=== PATIENT | male | born 1985 | race Caucasian/White ===

== ENCOUNTER 2022-10-15 16:37 | Inpatient (IN) | payer MEDICAID, SELFPAY ==
[2022-10-15 16:38] VITALS: BP 160/77; BP 161/91; PULSE 115; PULSE 119; RESP 18; RESP 24; TEMP 38; O2SAT 96; O2SAT 97; BMI 60.0
[2022-10-15 17:15] LABS: Bedside Glucose 116 mg/dL (74-106)
--- NOTE | 2022-10-15 17:58 | EKG12_ITS ---
Test Reason : GENERAL Blood Pressure : / mmHG Vent. Rate : 113 BPM Atrial Rate : 113 BPM P-R Int : 148 ms QRS Dur : 090 ms QT Int : 294 ms P-R-T Axes : 020 052 036 degrees QTc Int : 403 ms Sinus tachycardia Nonspecific ST-Segment Abnormality Confirmed by ADIS NAM, COLE ([id number]), editorial project manager NEENA SANTACRUZ ([id number]) on 10/17/2022 9:49:09 AM Referred By: Confirmed By:COLE ARCEO MD
--- NOTE | 2022-10-15 18:00 | EDS_ITS ---
HPI History of Present Illness Chief Complaint: General Illness Detail of Chief Complaint: Chills and rigors Informant: patient Onset/Context/Timing Onset: Today Narrative Narrative: Patient presents from work where he had developed chills with rigors and nausea. He states he feels that his ears are ringing and he feels dizzy. He was seen recently by a new primary care physician and had a mild cough. COVID test at that time was negative. The symptoms have developed since that test was performed. PFSH PFSH Allergy/AdvReac Type Severity Reaction Status Date / Time No Known Allergies Allergy Verified 10/15/22 16:40 Social History Smoking Status: Light Smoker (<10/day) ROS ROS ED Constitutional Constitutional ED: Reports chills, fever(s) and subjective Eyes Eyes: Denies change in vision or discharge from eye(s) ENT ENT ED: Denies discharge from eye(s), rhinorrhea or sore throat Cardiovascular Cardiovascular: Denies chest pain or palpitations Respiratory/Chest Respiratory/Chest: Reports cough; Denies dyspnea Gastrointestinal Gastrointestinal: Reports nausea; Denies abdominal pain, diarrhea or vomiting Genitourinary Genitourinary ED: Denies dysuria Musculoskeletal Musculoskeletal: Reports myalgias; Denies back pain or extremity pain Integumentary Denies Abrasions or rash Neurologic Neurologic: Reports headache(s); Denies weakness Psychiatric Psychiatric: Denies anxiety or depression Allergic/Immunologic Allergic/Immunologic ED: Denies lip swelling or urticaria EXAM Physical Exam Const Vital Signs: 10/15/22 16:38 10/15/22 16:38 10/15/22 18:38 Temperature 100.4 F H Temperature Source Oral Pulse Rate 119 H 115 H Respiratory Rate 18 24 H Respiratory Effort Short of Breath Respiratory Pattern Tachypnea Blood Pressure 161/91 H 160/77 H Blood Pressure Mean 114 104 Pulse Ox 97 96 Oxygen Delivery Method Room Air Room Air 10/15/22 19:41 10/15/22 21:33 10/15/22 21:46 Temperature 101.0 F H 99.1 F Temperature Source Oral Oral Pulse Rate 108 H 105 H Respiratory Rate 16 16 Respiratory Effort Respiratory Pattern Blood Pressure 95/54 L 92/60 Blood Pressure Mean 67 70 Pulse Ox 100 96 Oxygen Delivery Method Room Air Room Air 10/15/22 22:06 Temperature Temperature Source Pulse Rate 108 H Respiratory Rate 18 Respiratory Effort Respiratory Pattern Blood Pressure 111/67 Blood Pressure Mean 81 Pulse Ox 98 Oxygen Delivery Method Room Air Positive well nourished and well developed General Appearance ED: well developed HEENT Reports normocephalic and head/scalp atraumatic Eyes PERRL and EOMs intact bilaterally Neck supple Chest Wall inspection of chest normal and palpation of chest normal Resp normal respiratory effort and clear to auscultation bilaterally Cardio regular rhythm Rate: tachycardic GI non-tender Palpation: soft Extremity normal to inspection Neuro oriented x3 and no sensory deficits noted Sensorium / Orientation: alert Motor Exam: strength 5/5 throughout Psych mental status grossly normal Skin no rashes or lesions noted MDM MDM MDM Narrative Medical decision making narrative: COVID and influenza swabs have been sent prior to my initial evaluation. At the time of my eval I added lab work to evaluate for leukocytosis, anemia, electrolyte derangement. Chest x-ray obtained to evaluate for infiltrate or acute pulmonary pathology. Lab Data Attestation: I reviewed the patient's lab results. Labs: Laboratory Results - last 24 hr 10/15/22 10/15/22 10/15/22 16:46 18:35 18:35 WBC 20.7 H RBC 5.07 Hgb 14.7 Hct 46.4 MCV 91.5 MCH 29.0 MCHC 31.7 L RDW Std Deviation 47.3 H RDW Coeff of David 14.3 Plt Count 240 MPV 10.5 Immature Gran % (Auto) 0.600 Neut % (Auto) 92.5 H Lymph % (Auto) 2.8 L [place] % (Auto) 4.0 Eos % (Auto) 0.0 Baso % (Auto) 0.1 Absolute Neuts (auto) 19.1 H Absolute Lymphs (auto) 0.57 L Nucleated RBC % 0 Differential Comment SCANNED Platelet Estimate ADEQUATE Sodium 139 Potassium 3.5 Chloride 104 Carbon Dioxide 27.0 Anion Gap 8 BUN 11 Creatinine 0.92 Estim Creat Clear Calc 118.32 Est GFR (MDRD) Af Amer 118 Est GFR (MDRD) Non-Af 97 BUN/Creatinine Ratio 12.0 Glucose 111 H Lactic Acid Calcium 9.0 Urine Color Urine Clarity Urine pH Ur Specific [place] Urine Protein Urine Glucose (UA) Urine Ketones Urine Occult Blood Urine Nitrite Urine Bilirubin Urine Urobilinogen Ur Leukocyte Esterase Urine RBC Urine WBC Ur Squamous Epith Cells Urine Bacteria Urine Mucus POC Glucose 116 H 10/15/22 10/15/22 21:19 21:56 WBC RBC Hgb Hct MCV MCH MCHC RDW Std Deviation RDW Coeff of David Plt Count MPV Immature Gran % (Auto) Neut % (Auto) Lymph % (Auto) [place] % (Auto) Eos % (Auto) Baso % (Auto) Absolute Neuts (auto) Absolute Lymphs (auto) Nucleated RBC % Differential Comment Platelet Estimate Sodium Potassium Chloride Carbon Dioxide Anion Gap BUN Creatinine Estim Creat Clear Calc Est GFR (MDRD) Af Amer Est GFR (MDRD) Non-Af BUN/Creatinine Ratio Glucose Lactic Acid 2.3 H* Calcium Urine Color Yellow Urine Clarity Clear Urine pH 5.0 Ur Specific [place] 1.020 Urine Protein 30 H Urine Glucose (UA) Normal Urine Ketones 5 H Urine Occult Blood Negative Urine Nitrite Negative Urine Bilirubin Negative Urine Urobilinogen Normal Ur Leukocyte Esterase 25 H Urine RBC 0 SEEN Urine WBC 0-5 SEEN Ur Squamous Epith Cells 5-10 SEEN Urine Bacteria 0 SEEN Urine Mucus 3+ POC Glucose Radiography Chest X-Ray - ED: 1 View, Read by ED Physician and No Infiltrates Diagnostic Testing: Clinical Impression(s) from Imaging Studies Chest X-Ray 10/15/22 18:30 IMPRESSION: No acute cardiopulmonary disease. Electronically Signed: Castro Francis MD at 19:17 EDT , EKG Initial EKG: Attestation: I personally reviewed and interpreted this EKG as follows: Interpretation: Sinus Tachycardia (Sinus tach at 113. No acute ischemia.) Treatment and Re-Evaluation :: COVID and influenza swabs returned negative. I did advise the patient that since his symptoms really started today if he still has symptoms in 2 days he should be retested. CBC returns with a white count of 20.7 with 92% neutrophils. Chemistry studies are largely unremarkable. On repeat evaluation patient complains of ringing in his ears. Both ears are checked and TMs are clear bilaterally. There is minimal erythema in the canals but no evidence of otitis externa. Given his significantly elevated white count blood and urine cultures were obtained along with a urinalysis. While we are awaiting urinalysis I was notified by nursing staff that the patient's blood pressure had dropped into the 80s systolic. He remains slightly tachycardic. IV fluid boluses given. Lactic acid is obtained and is slightly elevated at 2.3. Patient denies having any rash or skin lesions. I do not have a definitive source of his fever or leukocytosis. He will be given Zosyn for broad-spectrum coverage. Given he still has dizziness with slightly improved blood pressure I will speak with the hospitalist for observation overnight. Blood pressure at this time is 112/66. Discharge Plan Triage Chief Complaint: General Illness ED Provider: Shania Live Dx/Rx/DC Orders Clinical Impression: SIRS (systemic inflammatory response syndrome) Primary Care Provider: Care Physician,No Primary Referrals: Care Physician,No Primary [Primary Care Provider] - Disposition Disposition: Acute Care [facility]
[2022-10-15] MEDS: Acetaminophen 500 MG Tablet 1000 MG PO (18:18)
[2022-10-15] MEDS: Ketorolac 30 MG/ML Syringe IV (18:27)
--- NOTE | 2022-10-15 18:30 | RAD_ITS ---
INDICATION: Cough EXAMINATION/TECHNIQUE: X-RAY - XR Chest 1 View COMPARISON: None. FINDINGS: LINES/DEVICES: None. LUNGS: No consolidation, edema or effusion. No pneumothorax. MEDIASTINUM AND CARDIOVASCULAR STRUCTURES: Cardiac silhouette not enlarged. Central airways and mediastinal contour are unremarkable. BONES AND SOFT TISSUES: Unremarkable for age. RAD/Chest 1 View (Portable) IMPRESSION: No acute cardiopulmonary disease. Electronically Signed: Castro Francis MD at 19:17 EDT ,
[2022-10-15 18:44] LABS: Absolute Lymphocyte Count 0.57 X10^3/uL (0.83-4.51); Absolute Neutrophil Count 19.1 X10^3/uL (2.0-7.7); Basophil# 0.03 X10^3/uL; Basophil% 0.1 % (0-1); Hematocrit 46.4 % (40-54); Hemoglobin 14.7 g/dL (13.0-16.5); Lymphocyte # 0.57 X10^3/ul (0.83-4.51); Lymphocyte % 2.8 % (19-41); Mean Corp Hgb Conc 31.7 g/dL (32-36); Mean Corpuscular Volume 91.5 fL (80-94); Mean Platelet Vol. 10.5 fl (6.2-12.0); Monocyte# 0.83 X10^3/uL; NRBC Flagged by Analyzer 0 % (0-5); Neutrophil % 92.5 % (47-70); POSITIVE DIFFERENTIAL YES; Platelet Count 240 K/mm3 (150-450); RBC Distribution Width CV 14.3 % (11.6-14.6); RBC Distribution Width SD 47.3 fl (35.1-43.9); Red Blood Count 5.07 M/mm3 (4.6-6.2); White Blood Count 20.7 K/mm3 (4.4-11.0)
[2022-10-15 18:48] LABS: Differential Indicated SCAN CRITERIA MET
[2022-10-15 18:55] LABS: Anion Gap 8 (5-15); BUN 11 mg/dL (7-18); Chloride 104 mmol/L (98-107); Creatinine, Serum 0.92 mg/dL (0.70-1.30); EST Glomerular Filtration Rate 97 mL/min (>60); Est Glom Filt Rate - Afr Amer 118 mL/min (>60); Estimated Creatinine Clearance 118.32 ml/min; Glucose 111 mg/dL (74-106); Potassium 3.5 mmol/L (3.5-5.1); Sodium Level 139 mmol/L (136-145)
[2022-10-15 19:14] LABS: Differential Comment SCANNED
[2022-10-15 19:15] LABS: Platelet Estimate ADEQUATE (ADEQ)
[2022-10-15 19:41] VITALS: TEMP 38.3
[2022-10-15 21:26] LABS: Bacteria 0 SEEN /hpf (None Seen); Red Blood Cells-Urine 0 SEEN /hpf (0-5)
[2022-10-15] MEDS: 0.9% Normal Saline 1,000 ML 150 ML IV (21:26)
[2022-10-15 21:33] VITALS: BP 95/54; PULSE 108; RESP 16; TEMP 37.3; O2SAT 100
[2022-10-15 21:46] VITALS: BP 92/60; PULSE 105; RESP 16; O2SAT 96
[2022-10-15 21:46] LABS: Color, Urine Yellow (Yellow); Glucose, Dipstick Normal (Normal); Ketone-Dipstick 5 mg/dl (Negative); Leukocyte Esterase-Dipstick 25 /ul (Negative); Nitrite-Dipstick Negative (Negative); Occult Blood-Urine Negative /ul (Negative); Protein-Dipstick 30 mg/dl (Negative); Urine Bilirubin Dipstick Negative (Negative); Urine Clarity Clear (Clear); Urine Urobilinogen Normal (Normal)
[2022-10-15] MEDS: 0.9% Normal Saline 1,000 ML 999 ML IV (22:05)
[2022-10-15 22:06] VITALS: BP 111/67; PULSE 108; RESP 18; O2SAT 98
[2022-10-15 22:07] LABS: Mucous, Urine 3+ /hpf (<or=2+); Squamous Epithelial Cells - UA 5-10 SEEN /hpf (0-5); White Blood Cells 0-5 SEEN /hpf (0-5)
[2022-10-15 22:43] LABS: Lactic Acid 2.3 mmol/L (0.4-1.9)
[2022-10-15 22:56] VITALS: BP 112/66; PULSE 109; RESP 20; TEMP 37.2; O2SAT 97
--- NOTE | 2022-10-15 23:02 | HP.PCM.HOS_ITS ---
HPI - General General Date of Admission: 10/15/22 Date of Service: 10/15/22 Chief Complaint: Fever, high-grade with chills, generalized illness with achiness HPI Narrative AMIRA CAREY, is a 37 M with history of obstructive sleep apnea on BiPAP was brought to ED for fever, chills rigors and generalized illness and weakness. Patient is accompanied with his . He went to work but he felt fever with chills and then came home. As per she took temperature and was 108 Fahrenheit, suspecting might not be that high but patient was febrile in ED, T101, 100.4 Fahrenheit with tachycardia and tachypnea. Patient has mild productive cough for last 2 weeks and he went to see newly established PCP and was COVID test was negative. He denies sore throat postnasal drip, alteration of taste and smell, sinus congestion. He has nausea and developed a headache today. Generalized muscle pain and aches. No hypoxia. In ED, chest x-ray was done, individually reviewed and looks under ventilated, crowded bronchovascular marking. Reported as no acute cardiopulmonary disease. In ED, rapid COVID and flu antigens are negative. Patient has leukocytosis with neutrophil 92%, lymphocyte 2.8, ALC 0.57 and an elevated ANC. Lactic acid 2.3. Patient on IV fluid normal saline bolus, blood cultures x2 and urine culture and 1 dose of IV Zosyn given further admitted Past medical history: Morbid obesity, obstructive sleep apnea but possible obesity hypoventilation syndrome on BiPAP, and diabetes mellitus type 2. Denies chronic cardiac disease, COPD/emphysema, stroke. Social history: He smokes less than a pack per day. Patient had taken 1 dose of COVID-vaccine, J&J. Denies heavy/chronic drinking alcohol or substance use. Family history: Noncontributory to the present illness. [facility] Allergy/AdvReac Type Severity Reaction Status Date / Time No Known Allergies Allergy Verified 10/15/22 16:40 Social History Smoking Status: Light Smoker (<10/day) ROS ROS Narrative Constitutional: Reports fatigue and weakness. Fever, aches and pain. HEENT: Reports systems reviewed and no addt'l complaints, except as documented Respiratory/Chest: Cough for about 2 weeks as described in HPI. CVS: Denies coronary artery disease/anginal chest pain. Gastrointestinal: One-time nausea and vomiting. GI bleed or abdominal pain. Genitourinary: Denies burning urination or new urinary tract symptoms Musculoskeletal: Reports joint pain and limited range of motion. Chronic leg swelling. Neurologic: Denies seizure-like activity skin: No ulcer. No rash Endocrinology: DM type II, new diagnosis by PCP. Morbid obesity. Reports systems reviewed and no addt'l complaints, except as documented Hematologic/Lymphatic: Bilateral chronic lymphedema in legs. Reports systems reviewed and no addt'l complaints, except as documented Rest 14 ROS are negative except as mentioned in HPI Vital Signs Vital Signs Vital Signs: 10/15/22 16:38 10/15/22 16:38 10/15/22 18:38 Temperature 100.4 F H Temperature Source Oral Pulse Rate 119 H 115 H Respiratory Rate 18 24 H Respiratory Effort Short of Breath Respiratory Pattern Tachypnea Blood Pressure 161/91 H 160/77 H Blood Pressure Mean 114 104 Pulse Ox 97 96 Oxygen Delivery Method Room Air Room Air 10/15/22 19:41 10/15/22 21:33 10/15/22 21:46 Temperature 101.0 F H 99.1 F Temperature Source Oral Oral Pulse Rate 108 H 105 H Respiratory Rate 16 16 Respiratory Effort Respiratory Pattern Blood Pressure 95/54 L 92/60 Blood Pressure Mean 67 70 Pulse Ox 100 96 Oxygen Delivery Method Room Air Room Air 10/15/22 22:06 10/15/22 22:56 Temperature 99.0 F Temperature Source Oral Pulse Rate 108 H 109 H Respiratory Rate 18 20 H Respiratory Effort Respiratory Pattern Blood Pressure 111/67 112/66 Blood Pressure Mean 81 81 Pulse Ox 98 97 Oxygen Delivery Method Room Air Room Air Weight Weight: 443 lb Body Mass Index (BMI) 60.0 Physical Exam Narrative Physical exam General: Alert, Oriented x3, Cooperative, super morbid obesity; BMI 60.1 kg/m?. HEENT: Atraumatic, PERRLA, EOMI, Normocephalic Oral: Deep oropharyngeal structures not clearly visualized. No oral/mucosal ulcers Neck: Supple, No JVD, Negative Carotid Bruits Lungs: Air entry diminished in bilateral lung bases. No crepitation/rhonchi Cardiovascular: Sinus tachycardia, Normal S1, Normal S2, No murmurs Abdomen: Bowel Sounds Present, Soft, Non Tender, large fat abdomen. : No renal angle tenderness. No suprapubic tenderness. Extremities: Bilateral chronic lymphedema 2+. Pitting and nonpitting edema., Capillary Refill Less than 3 Seconds Skin: No rashes, No breakdown Musculoskeletal: No Tenderness to Palpation of Joints. ROM restricted. Gene ralized muscle tenderness. Neurological: Cranial nerves II-XII grossly intact, DTR 2+/4 and Symmetrical, Neuro grossly intact Psych/Mental Status: Flat affect. Results Lab / Micro Data Result Diagrams: 10/15/22 18:35 10/15/22 18:35 Labs: Laboratory Results - last 24 hr 10/15/22 16:46: POC Glucose 116 H 10/15/22 18:35: WBC 20.7 H, RBC 5.07, Hgb 14.7, Hct 46.4, MCV 91.5, MCH 29.0, MCHC 31.7 L, RDW Std Deviation 47.3 H, RDW Coeff of David 14.3, Plt Count 240, MPV 10.5, Immature Gran % (Auto) 0.600, Neut % (Auto) 92.5 H, Lymph % (Auto) 2.8 L, [place] % (Auto) 4.0, Eos % (Auto) 0.0, Baso % (Auto) 0.1, Absolute Neuts (auto) 19.1 H, Absolute Lymphs (auto) 0.57 L, Nucleated RBC % 0, Differential Comment SCANNED, Platelet Estimate ADEQUATE 10/15/22 18:35: Sodium 139, Potassium 3.5, Chloride 104, Carbon Dioxide 27.0, Anion Gap 8, BUN 11, Creatinine 0.92, Estim Creat Clear Calc 118.32, Est GFR (MDRD) Af Amer 118, Est GFR (MDRD) Non-Af 97, BUN/Creatinine Ratio 12.0, Glucose 111 H, Calcium 9.0 10/15/22 21:19: Urine Color Yellow, Urine Clarity Clear, Urine pH 5.0, Ur Specific [place] 1.020, Urine Protein 30 H, Urine Glucose (UA) Normal, Urine Ketones 5 H, Urine Occult Blood Negative, Urine Nitrite Negative, Urine Bilirubin Negative, Urine Urobilinogen Normal, Ur Leukocyte Esterase 25 H, Urine RBC 0 SEEN, Urine WBC 0-5 SEEN, Ur Squamous Epith Cells 5-10 SEEN, Urine Bacteria 0 SEEN, Urine Mucus 3+ 10/15/22 21:56: Lactic Acid 2.3 H* Micro: Microbiology 10/15/22 17:25 Nasal Secretion SARS-CoV-2 & FLU Antigen (Rapid) - Final Radiology Impression Chest X-Ray 10/15/22 18:30 IMPRESSION: No acute cardiopulmonary disease. Electronically Signed: Castro Francis MD at 19:17 EDT , Assessment & Plan Assessment/Plan (1) Viral syndrome: PLAN: Plan This is 37-year-old gentleman is being admitted for high-grade fever, symptom co mplex suggestive of acute viral syndrome 1. Probability of sepsis due to acute viral syndrome: Patient is being admitted in PCU. I have moderate suspicion of sepsis based on clinical indicators of fever, tachycardia, leukocytosis, neutrophilia and lactic acidosis. The patient presented with sepsis due to exact etiology unclear possible, acute bronchitis due to respiratory virus with acute sepsis-related organ dysfunction as evidenced by lactic acidosis, transient hypotension responsive to IV fluid normal saline bolus. Sepsis work-up with blood cultures x2, urine culture, respiratory panel, COVID-19 PCR ordered. Initial rapid COVID and flu antigens are negative. Patient is not candidate for sepsis protocol IV fluid bolus as he has bilateral leg edema, diminished air entry in both lungs and high risk for fluid overload/pulmonary edema. His ideal body weight is 78 kg. Patient had 1 L of normal saline bolus ordered in ED. 2 L more IV fluid boluses ordered. Broad-spectrum IV antibiotic Zosyn ordered. 2. Morbid obesity with obstructive sleep apnea/obesity hypoventilation syndrome on BiPAP: Patient on BiPAP setting of 16/10. BiPAP ordered. Weight loss counseling done. Follow-up with PCP. 3. Diabetes mellitus type 2: Patient stated he was diagnosed with PCP recently but had not received medications yet. 1800 ADA diet. Accu-Cheks and adjust cover with Humalog sliding scale. A1c tomorrow AM. VTE prophylaxis, high risk due to morbid obesity: Enoxaparin 40 mg subcu twice daily Living will/advanced directive/end of life care: Patient does not have living will or advanced directive. No designated power of contracts attorney for health after discussion of benefits/risks procedures involved with full code, DNR CC arrest and DNR CC, the patient opted for full code. Patient does want artificial life support including intubation, tube feed, ventilator and/chest compression, central venous catheter, vasopressor and DC shock if needed 10/15/22 16:46: POC Glucose 116 H 10/15/22 18:35: WBC 20.7 H, RBC 5.07, Hgb 14.7, Hct 46.4, MCV 91.5, MCH 29.0, MCHC 31.7 L, RDW Std Deviation 47.3 H, RDW Coeff of David 14.3, Plt Count 240, MPV 10.5, Immature Gran % (Auto) 0.600, Neut % (Auto) 92.5 H, Lymph % (Auto) 2.8 L, [place] % (Auto) 4.0, Eos % (Auto) 0.0, Baso % (Auto) 0.1, Absolute Neuts (auto) 19.1 H, Absolute Lymphs (auto) 0.57 L, Nucleated RBC % 0, Differential Comment SCANNED, Platelet Estimate ADEQUATE 10/15/22 18:35: Sodium 139, Potassium 3.5, Chloride 104, Carbon Dioxide 27.0, Anion Gap 8, BUN 11, Creatinine 0.92, Estim Creat Clear Calc 118.32, Est GFR (MDRD) Af Amer 118, Est GFR (MDRD) Non-Af 97, BUN/Creatinine Ratio 12.0, Glucose 111 H, Calcium 9.0 10/15/22 21:19: Urine Color Yellow, Urine Clarity Clear, Urine pH 5.0, Ur Specific [place] 1.020, Urine Protein 30 H, Urine Glucose (UA) Normal, Urine Ketones 5 H, Urine Occult Blood Negative, Urine Nitrite Negative, Urine Bilirubin Negative, Urine Urobilinogen Normal, Ur Leukocyte Esterase 25 H, Urine RBC 0 SEEN, Urine WBC 0-5 SEEN, Ur Squamous Epith Cells 5-10 SEEN, Urine Bacteria 0 SEEN, Urine Mucus 3+ 10/15/22 21:56: Lactic Acid 2.3 H* 10/15/22 23:16: COVID-19 (RICHELLE) Pending 10/15/22 16:46: POC Glucose 116 H 10/15/22 18:35: WBC 20.7 H, RBC 5.07, Hgb 14.7, Hct 46.4, MCV 91.5, MCH 29.0, MCHC 31.7 L, RDW Std Deviation 47.3 H, RDW Coeff of David 14.3, Plt Count 240, MPV 10.5, Immature Gran % (Auto) 0.600, Neut % (Auto) 92.5 H, Lymph % (Auto) 2.8 L, [place] % (Auto) 4.0, Eos % (Auto) 0.0, Baso % (Auto) 0.1, Absolute Neuts (auto) 19.1 H, Absolute Lymphs (auto) 0.57 L, Nucleated RBC % 0, Differential Comment SCANNED, Platelet Estimate ADEQUATE 10/15/22 18:35: Sodium 139, Potassium 3.5, Chloride 104, Carbon Dioxide 27.0, Anion Gap 8, BUN 11, Creatinine 0.92, Estim Creat Clear Calc 118.32, Est GFR (MDRD) Af Amer 118, Est GFR (MDRD) Non-Af 97, BUN/Creatinine Ratio 12.0, Glucose 111 H, Calcium 9.0 10/15/22 21:19: Urine Color Yellow, Urine Clarity Clear, Urine pH 5.0, Ur Specific [place] 1.020, Urine Protein 30 H, Urine Glucose (UA) Normal, Urine K etones 5 H, Urine Occult Blood Negative, Urine Nitrite Negative, Urine Bilirubin Negative, Urine Urobilinogen Normal, Ur Leukocyte Esterase 25 H, Urine RBC 0 SEEN, Urine WBC 0-5 SEEN, Ur Squamous Epith Cells 5-10 SEEN, Urine Bacteria 0 SEEN, Urine Mucus 3+ 10/15/22 21:56: Lactic Acid 2.3 H* 10/15/22 23:16: COVID-19 (RICHELLE) Pending Charges/Coding Visit Charges Inpatient E&M: 88846 Init Hosp L3
[2022-10-16] VITALS (9 sets, daily range): BP systolic 84–150; BP diastolic 49–91; PULSE 95–102; RESP 18–30; TEMP 37.2–38.2; O2SAT 95–98; BMI 54.1; BMI 54.6
[2022-10-16 00:03] LABS: International Normalized Ratio 1.1; Partial Thromboplast Time 26.5 Seconds (24.1-36.2); Prothrombin Time (Protime)PT. 14.3 SECONDS (11.7-14.9)
[2022-10-16 00:06] LABS: AST(SGOT) 16 U/L (15-37); Alanine Aminotransfer ALT/SGPT 29 U/L (16-61); Albumin, Serum 3.6 g/dL (3.2-5.0); Alkaline Phosphatase 80 U/L (45-117); Bilirubin, Direct 0.18 mg/dL (0.00-0.30); CPK Total, Creatine Kinase 85 U/L (39-308); Globulin 4.2 g/dL (2.2-4.2); Protein, Total 7.8 g/dL (6.4-8.2)
[2022-10-16] MEDS: 0.9% Normal Saline 1,000 ML 999 ML IV ×2 (01:30→02:32)
[2022-10-16 02:04] LABS: Reflex Lactate? Y
[2022-10-16] MEDS: Enoxaparin 40 MG/0.4 ML Syringe SC ×3 (03:41→21:48)
[2022-10-16 05:29] LABS: Absolute Lymphocyte Count 0.74 X10^3/uL (0.83-4.51); Absolute Neutrophil Count 24.1 X10^3/uL (2.0-7.7); Basophil# 0.06 X10^3/uL; Basophil% 0.2 % (0-1); Eosinophil# 0.05 X10^3/uL; Eosinophils% 0.2 % (0-5); Hematocrit 40.5 % (40-54); Hemoglobin 12.6 g/dL (13.0-16.5); Lymphocyte # 0.74 X10^3/ul (0.83-4.51); Lymphocyte % 2.9 % (19-41); Mean Corp Hgb Conc 31.1 g/dL (32-36); Mean Corpuscular Hgb 28.9 pg (27.0-32.0); Mean Corpuscular Volume 92.9 fL (80-94); Mean Platelet Vol. 10.5 fl (6.2-12.0); Monocyte# 0.75 X10^3/uL; Monocyte% 2.9 % (0-10); NRBC Flagged by Analyzer 0 % (0-5); Neutrophil # 24.08 X10^3/uL (2.7-7.7); POSITIVE DIFFERENTIAL YES; Platelet Count 227 K/mm3 (150-450); RBC Distribution Width CV 14.4 % (11.6-14.6); RBC Distribution Width SD 48.9 fl (35.1-43.9); Red Blood Count 4.36 M/mm3 (4.6-6.2); White Blood Count 25.9 K/mm3 (4.4-11.0)
[2022-10-16 05:45] LABS: Anion Gap 7 (5-15); BUN 17 mg/dL (7-18); BUN/Creat Ratio 12.4 RATIO (10-20); Chloride 105 mmol/L (98-107); Creatinine, Serum 1.37 mg/dL (0.70-1.30); EST Glomerular Filtration Rate 61 mL/min (>60); Est Glom Filt Rate - Afr Amer 74 mL/min (>60); Estimated Creatinine Clearance 93.59 ml/min; Glucose 146 mg/dL (74-106); Potassium 4.1 mmol/L (3.5-5.1); Sodium Level 134 mmol/L (136-145)
[2022-10-16 05:47] LABS: Differential Indicated SCAN CRITERIA MET; Magnesium 1.3 mg/dL (1.6-2.6)
[2022-10-16 05:48] LABS: Phosphorus 2.4 mg/dL (2.5-4.9)
[2022-10-16 05:59] LABS: Differential Comment SCANNED
[2022-10-16 08:30] LABS: Hemoglobin A1c 6.1 % (3.8-5.6)
--- NOTE | 2022-10-16 08:51 | PN.HOSP_ITS ---
Reason for Visit Reason for Visit: For/chills/generalized weakness/malaise Subjective Subjective Mr. Tom is a 37-year-old morbidly obese white male who presented to the emergency department on 10/15/2022 with fever, chills, generalized weakness and malaise that started yesterday. Per the history his took his temperature at home and it was 108 ?F. In the emergency department he was 101 Tmax and was found to be tachycardic and tachypneic. He evidently had a productive cough for about 2 weeks and establish with a new primary care physician and was COVID tested 2 weeks ago and found to be negative. On the day of presentation he developed some nausea and headache as well as generalized malaise and myalgias. On presentation he was found to have a marked leukocytosis with a white count of 20.7 and a left shift having a 92.5% neutrophilia. Coags were normal. Chemistry was unremarkable. Lactic acid was 2.3. CRP was 22.4. His urine was not consistent with acute infection. Rapid and COVID PCR were negative. Respiratory viral panel was negative. Strep pneumo and Legionella antigens are negative. Blood and urine cultures are pending. Given the concern for sepsis he was admitted to the ICU. He reports that he is feeling a little bit better today. Very nonspecific with his complaints today. Fever curve has improved. Tmax thus today is 100.8. Patient did state he was aware that he might have some insulin resistance. His mother was a type II diabetic he believes. Objective Data Objective Data Vital Signs: Vital Signs Temp Pulse Resp BP Pulse Ox O2 Del Method 99.8 F H 100 27 H 99/49 L 96 Room Air 10/16/22 07:59 10/16/22 07:59 10/16/22 07:59 10/16/22 07:59 10/16/22 07:59 10/16/22 07:59 Oxygen Delivery Method Room Air Weight: 218.7 kg Body Mass Index (BMI) 54.6 Intake & Output: Intake and Output for Last 24 Hours 10/14/22 10/15/22 10/16/22 23:59 23:59 23:59 Intake Total 500 / 500 4262.5 / 4262.5 Balance 500 / 500 4262.5 / 4262.5 Lab / Micro Data Result Diagrams: 10/16/22 05:10 10/16/22 05:10 Labs: Laboratory Results - last 24 hr 10/15/22 16:46: POC Glucose 116 H 10/15/22 18:35: WBC 20.7 H, RBC 5.07, Hgb 14.7, Hct 46.4, MCV 91.5, MCH 29.0, MCHC 31.7 L, RDW Std Deviation 47.3 H, RDW Coeff of David 14.3, Plt Count 240, MPV 10.5, Immature Gran % (Auto) 0.600, Neut % (Auto) 92.5 H, Lymph % (Auto) 2.8 L, [place] % (Auto) 4.0, Eos % (Auto) 0.0, Baso % (Auto) 0.1, Absolute Neuts (auto) 19.1 H, Absolute Lymphs (auto) 0.57 L, Nucleated RBC % 0, Differential Comment SCANNED, Platelet Estimate ADEQUATE 10/15/22 18:35: Sodium 139, Potassium 3.5, Chloride 104, Carbon Dioxide 27.0, Anion Gap 8, BUN 11, Creatinine 0.92, Estim Creat Clear Calc 118.32, Est GFR (MDRD) Af Amer 118, Est GFR (MDRD) Non-Af 97, BUN/Creatinine Ratio 12.0, Glucose 111 H, Calcium 9.0 10/15/22 18:35: Total Bilirubin 0.60, Direct Bilirubin 0.18, AST 16, ALT 29, Alkaline Phosphatase 80, Total Creatine Kinase 85, Total Protein 7.8, Albumin 3.6, Globulin 4.2 10/15/22 18:35: C-React Prot Ext Range 22.40 H 10/15/22 21:19: Urine Color Yellow, Urine Clarity Clear, Urine pH 5.0, Ur Specific [place] 1.020, Urine Protein 30 H, Urine Glucose (UA) Normal, Urine Ketones 5 H, Urine Occult Blood Negative, Urine Nitrite Negative, Urine Bilirubin Negative, Urine Urobilinogen Normal, Ur Leukocyte Esterase 25 H, Urine RBC 0 SEEN, Urine WBC 0-5 SEEN, Ur Squamous Epith Cells 5-10 SEEN, Urine Bacteria 0 SEEN, Urine Mucus 3+ 10/15/22 21:56: Lactic Acid 2.3 H* 10/15/22 22:30: PT 14.3, INR 1.1, APTT 26.5 10/15/22 23:16: COVID-19 (RICHELLE) Not Detected 10/16/22 05:10: Magnesium 1.3 L 10/16/22 05:10: Sodium 134 L, Potassium 4.1, Chloride 105, Carbon Dioxide 22.0, Anion Gap 7, BUN 17, Creatinine 1.37 H, Estim Creat Clear Calc 93.59, Est GFR (M DRD) Af Amer 74, Est GFR (MDRD) Non-Af 61, BUN/Creatinine Ratio 12.4, Glucose 146 H, Calcium 8.0 L 10/16/22 05:10: WBC 25.9 H, RBC 4.36 L, Hgb 12.6 L, Hct 40.5, MCV 92.9, MCH 28.9, MCHC 31.1 L, RDW Std Deviation 48.9 H, RDW Coeff of David 14.4, Plt Count 227, MPV 10.5, Immature Gran % (Auto) 0.800, Neut % (Auto) 93.0 H, Lymph % (Auto) 2.9 L, [place] % (Auto) 2.9, Eos % (Auto) 0.2, Baso % (Auto) 0.2, Absolute Neuts (auto) 24.1 H, Absolute Lymphs (auto) 0.74 L, Nucleated RBC % 0, Differential Comment SCANNED 10/16/22 05:10: Phosphorus 2.4 L 10/16/22 05:10: Hemoglobin A1c 6.1 H 10/16/22 05:10: Lactic Acid 2.0 Micro: Microbiology 10/15/22 23:16 Mucosa - Nose Respiratory Panel (PCR) - Final 10/15/22 21:19 Urine, Random Streptococcus pneumoniae Antigen (M - Final 10/15/22 21:19 Urine, Clean Catch Legionella Antigen - Final 10/15/22 17:25 Nasal Secretion SARS-CoV-2 & FLU Antigen (Rapid) - Final Radiography Diagnostic Testing: Radiology Impression Chest X-Ray 10/15/22 18:30 IMPRESSION: No acute cardiopulmonary disease. Electronically Signed: Castro Francis MD at 19:17 EDT , Physical Exam Const alert, oriented x3, no apparent distress and well nourished Constitutional Narrative: Morbidly obese male, sitting up on the edge of the bed, appears comfortable right now, appears ill but nontoxic at this moment HEENT head/scalp atraumatic, moist oral mucous membranes and oropharynx normal HEENT Narrative: Mallampati 4, no thrush Resp normal respiratory effort, no retractions, no use of accessory muscles and clear to auscultation bilaterally Resp Narrative: Distant secondary to body habitus Auscultation: Negative for rales, rhonchi or wheezes Cardio regular rate, regular rhythm, S1 normal heart sound, S2 normal heart sound, no murmurs, no rub, no gallops and no clicks Cardio Narrative: Distant secondary to body habitus Extremity Extremity Narrative: 1+ bilateral lower extremity pitting edema, no cyanosis or clubbing Neuro oriented x3, CN's II-XII intact bilaterally, moves all extremities and no focal motor deficits Speech: speech normal Psych Psych Narrative: Affect is flat Assessment & Plan Assessment/Plan (1) Fever: (2) Leukocytosis: (3) PANDA (acute kidney injury): (4) Newly diagnosed diabetes: (5) Hypophosphatemia: (6) Hypomagnesemia: (7) Lactic acidosis: PLAN: Plan Fever/leukocytosis -Patient does NOT meet sepsis criteria per SEP-3 guidelines -Continue Zosyn add vancomycin -Markedly elevated CRP -Initially it was thought that this was likely viral syndrome however the patie nt has a significant left shift -Blood/urine/sputum cultures pending -No sputum collected as of yet -Strep pneumo and Legionella antigens are negative -COVID and flu viral and PCR were negative -Respiratory viral panel is negative -Check procalcitonin -Check MRSA PCR and if negative will discontinue vancomycin -Etiology is unclear at this point -Add Tylenol PANDA -Developed overnight -Baseline serum creatinine appears to be between 0.8 and 1 -Serum creatinine today 1.37 -Start IV fluids with LR x2 L -Encourage p.o. intake -Avoid nephrotoxins -Repeat BMP in a.m. Hypophosphatemia -Oral Phos 3 times daily x1 day -Repeat Phos level in a.m. Anemia -2 g mag bolus -Repeat mag level in a.m. New DM-2 -A1c was found to be 6.1 on admission consistent with the diagnosis of diabetes -Should be amenable to diet control -Carb controlled diet ordered -Monitor sugars with acute illness Lactic acidosis -Resolved Tobacco abuse -Recommend cessation -Nicotine patch if desired Morbid obesity -Recommend weight loss -BMI 54.7 -Complicates treatment, prognosis, outcomes -Highly suspect obstructive sleep apnea and would recommend outpatient sleep study after discharge DVT prophylaxis -Lovenox 40 mg twice daily CODE STATUS -Full code Charges/Coding Visit Charges Inpatient E&M: 06203 Subs Hosp L2
[2022-10-16] MEDS: Acetaminophen 500 MG Tablet 1000 MG PO ×2 (09:21→17:56)
[2022-10-16] MEDS: Lactated Ringers 1,000 ML 100 ML IV ×2 (09:22→23:23)
--- NOTE | 2022-10-16 09:54 | PCM.RX.CS ---
Consult Pharmacy has been consulted to manage selected antiobiotic: Vancomycin Type of Consult: New start Prior Doses of Antibiotics Received/Current Regimen: Medications Vancomycin HCl 2,000 mg/ (Sodium Chloride) 540 mls @ 250 mls/hr IV X1 ONE Stop: 10/16/22 12:09 Last Admin: 10/16/22 09:37 Dose: 250 mls/hr Labs: Sodium 134 mmol/L (136-145) L 10/16/22 05:10 Potassium 4.1 mmol/L (3.5-5.1) 10/16/22 05:10 Chloride 105 mmol/L (98-107) 10/16/22 05:10 Carbon Dioxide 22.0 mmol/L (21.0-32.0) 10/16/22 05:10 Anion Gap 7 (5-15) 10/16/22 05:10 BUN 17 mg/dL (7-18) 10/16/22 05:10 Creatinine 1.37 mg/dL (0.70-1.30) H 10/16/22 05:10 Est GFR (MDRD) Af Amer 74 mL/min (>60) 10/16/22 05:10 Est GFR (MDRD) Non-Af 61 mL/min (>60) 10/16/22 05:10 BUN/Creatinine Ratio 12.4 RATIO (10-20) 10/16/22 05:10 Glucose 146 mg/dL (74-106) H 10/16/22 05:10 Microbiology: Microbiology 10/15/22 23:16 Mucosa - Nose Respiratory Panel (PCR) - Final 10/15/22 21:19 Urine, Random Streptococcus pneumoniae Antigen (M - Final 10/15/22 21:19 Urine, Clean Catch Legionella Antigen - Final 10/15/22 17:25 Nasal Secretion SARS-CoV-2 & FLU Antigen (Rapid) - Final Weight used for dosin kg Estimated Creatinine Clearance: 94 Goal Trough: 15-20 mcg/mL Pharmacy Plan for Drug Dosing: Vancomycin 2000mg IV x1, 1250mg IV q8h with trough prior to 4th dose per policy. Pharmacy Service will continue to monitor and adjust dosing as required. Follow-Up Labs: Trough Vancomycin - 10/17 @ 0930
--- NOTE | 2022-10-16 10:06 | CON.PCM.ID_ITS ---
Assessment & Plan Assessment/Plan (1) Lactic acidosis: (2) PANDA (acute kidney injury): (3) Fever: PLAN: Procalcitonin pending. Resp pcr panel neg. Covid Ag neg. UA neg. CXR clear. New PANDA this AM. On empiric vanc/zosyn. Will check covid pcr. Will follow, thank you, d/w Dr. Longo HPI Consult Data Date of Consult: 10/16/22 HPI Narrative Reason for Consultation: fever HPI Narrative: AMIRA CAREY, is a 37 M who presented to ED 10/15 with that day onset of fever, chills, body aches, headache, nausea. Reports several weeks of dry cough. Stubbed L great toe a few days ago, but minimal pain, no redness, no drainage, no neuropathy. Denies dyspnea, change in taste and smell, dysuria, rash, sore throat. No sick contacts, no recent travel. Has a chameleon at home but always washes hands after handling. Covid neg here and at PCP. Admitted on zosyn, now vanc added. New PANDA this AM. Feeling about the same. Full ROS performed and neg except as noted above. [facility]LY [facility] Medical History Morbid obesity Tobacco abuse Allergy/AdvReac Type Severity Reaction Status Date / Time No Known Allergies Allergy Verified 10/15/22 16:40 Social History Smoking Status: Former smoker Physical Exam Const alert, oriented x3 and no apparent distress General Appearance: cooperative HEENT normocephalic and head/scalp atraumatic Eyes PERRL and EOMs intact bilaterally Neck supple and No nodes Resp normal air movement and clear to auscultation bilaterally Cardio no murmurs Rate: tachycardic GI soft to palpation, non-tender and non-distended Extremity General Extremity: Negative for edema Skin no rashes or lesions noted Neuro CN's II-XII intact bilaterally Lab / Micro Data Attestation: I reviewed the patient's lab results. Result Diagrams: 10/16/22 05:10 10/16/22 05:10 Labs: Laboratory Results - last 24 hr 10/15/22 16:46: POC Glucose 116 H 10/15/22 18:35: WBC 20.7 H, RBC 5.07, Hgb 14.7, Hct 46.4, MCV 91.5, MCH 29.0, MCHC 31.7 L, RDW Std Deviation 47.3 H, RDW Coeff of David 14.3, Plt Count 240, MPV 10.5, Immature Gran % (Auto) 0.600, Neut % (Auto) 92.5 H, Lymph % (Auto) 2.8 L, [place] % (Auto) 4.0, Eos % (Auto) 0.0, Baso % (Auto) 0.1, Absolute Neuts (auto) 19.1 H, Absolute Lymphs (auto) 0.57 L, Nucleated RBC % 0, Differential Comment SCANNED, Platelet Estimate ADEQUATE 10/15/22 18:35: Sodium 139, Potassium 3.5, Chloride 104, Carbon Dioxide 27.0, Anion Gap 8, BUN 11, Creatinine 0.92, Estim Creat Clear Calc 118.32, Est GFR (MDRD) Af Amer 118, Est GFR (MDRD) Non-Af 97, BUN/Creatinine Ratio 12.0, Glucose 111 H, Calcium 9.0 10/15/22 18:35: Total Bilirubin 0.60, Direct Bilirubin 0.18, AST 16, ALT 29, Alkaline Phosphatase 80, Total Creatine Kinase 85, Total Protein 7.8, Albumin 3.6, Globulin 4.2 10/15/22 18:35: C-React Prot Ext Range 22.40 H 10/15/22 21:19: Urine Color Yellow, Urine Clarity Clear, Urine pH 5.0, Ur Specific [employer] 1.020, Urine Protein 30 H, Urine Glucose (UA) Normal, Urine Ketones 5 H, Urine Occult Blood Negative, Urine Nitrite Negative, Urine Bilirubin Negative, Urine Urobilinogen Normal, Ur Leukocyte Esterase 25 H, Urine RBC 0 SEEN, Urine WBC 0-5 SEEN, Ur Squamous Epith Cells 5-10 SEEN, Urine Bacteria 0 SEEN, Urine Mucus 3+ 10/15/22 21:56: Lactic Acid 2.3 H* 10/15/22 22:30: PT 14.3, INR 1.1, APTT 26.5 10/15/22 23:16: COVID-19 (RICHELLE) Not Detected 10/16/22 05:10: Magnesium 1.3 L 10/16/22 05:10: Sodium 134 L, Potassium 4.1, Chloride 105, Carbon Dioxide 22.0, Anion Gap 7, BUN 17, Creatinine 1.37 H, Estim Creat Clear Calc 93.59, Est GFR (MDRD) Af Amer 74, Est GFR (MDRD) Non-Af 61, BUN/Creatinine Ratio 12.4, Glucose 146 H, Calcium 8.0 L 10/16/22 05:10: WBC 25.9 H, RBC 4.36 L, Hgb 12.6 L, Hct 40.5, MCV 92.9, MCH 28.9, MCHC 31.1 L, RDW Std Deviation 48.9 H, RDW Coeff of David 14.4, Plt Count 227, MPV 10.5, Immature Gran % (Auto) 0.800, Neut % (Auto) 93.0 H, Lymph % (Auto) 2.9 L, [place] % (Auto) 2.9, Eos % (Auto) 0.2, Baso % (Auto) 0.2, Absolute Neuts (auto) 24.1 H, Absolute Lymphs (auto) 0.74 L, Nucleated RBC % 0, Differential Comment SCANNED 10/16/22 05:10: Phosphorus 2.4 L 10/16/22 05:10: Hemoglobin A1c 6.1 H 10/16/22 05:10: Lactic Acid 2.0 Micro: Microbiology 10/15/22 23:16 Mucosa - Nose Respiratory Panel (PCR) - Final 10/15/22 21:19 Urine, Random Streptococcus pneumoniae Antigen (M - Final 10/15/22 21:19 Urine, Clean Catch Legionella Antigen - Final 10/15/22 17:25 Nasal Secretion SARS-CoV-2 & FLU Antigen (Rapid) - Final Radiology Impression Chest X-Ray 10/15/22 18:30 IMPRESSION: No acute cardiopulmonary disease. Electronically Signed: Castro Francis MD at 19:17 EDT ,
[2022-10-16 10:25] LABS: Procalcitonin 13.95 ng/mL (0.00-0.09)
[2022-10-16 11:40] LABS: Bedside Glucose 150 mg/dL (74-106)
[2022-10-16] MEDS: Na Biphos/Potassium Phosphate PACKET 1 PACKET PO (11:53)
[2022-10-16 12:09] LABS: M R Staph aureus DNA By PCR Negative (Negative); Probe Check PASS; Specimen Processing Control PASS
--- NOTE | 2022-10-16 15:00 | CASEMGMT ---
HANNA JOYCE Assessment: Face to Face with pt for initial transition planning/care coordination assessment. RN ISIAH introduced self and role at [facility], pt voices understanding and consents to assessment. Pt is A/O x4 and answers all questions appropriately at this time. Pt lying in bed in no distress. Care providers, pharmacy, and demographics verified/updated. Admitting Dx: viral fever PCP:Pt denies, provided pt with a local healthcare directory pamphlet Specialists:Pt denies. Preferred Pharmacy: [facility] Insurance: [facility] Prescription Benefit: yes LNOK: Sydni Tom, Living Arrangements: Pt lives with and 4 children in a two story home with 4 steps to enter with a rail. Pt reports he is I in ADL's and denies concerns at home. Transportation: Pt drives self and denies concerns with transportation. DME/HHC/SNF: Pt has a CPAP at home, denies hx of HHC or SNF stays. Pt states no concerns with going home at time of dc. Pt states no further concerns/needs. CM to follow. Advised pt to ask CM if any further question/concerns/needs arise, voices understanding. Pt Goal: Home Plan: Home
--- NOTE | 2022-10-16 15:41 | VDLE_ITS ---
Reason For Study: Swelling RIGHT LEFT GSV is normal. GSV is normal. CFV is compressible, spontaneous, phasic, FV is compressible, spontaneous, phasic, competent and demonstrates normal competent and demonstrates normal augmentation. augmentation. FV is compressible, spontaneous, phasic, POP V is compressible, spontaneous, phasic, competent and demonstrates normal competent and demonstrates normal augmentation. augmentation. POP V is compressible, spontaneous, phasic, T/P Trunk is compressible. competent and demonstrates normal PTV is compressible. augmentation. CFV, SFJ, FV distal and PeroV not visualized T/P Trunk is compressible. due to patient body habitus and edema. PTV is compressible. RT PerV is compressible. Procedure This is a venous duplex using B-mode, color flow and spectral Doppler. Exam performed portable in ICU/CCU. Technically difficult and limited study due to patient body habitus and edema. A preliminary report was called and/or faxed to ICU. VL/Venous Duplex US - William Extrem Interpretation Summary Deep veins of the bilateral lower extremities are patent and compressible segme ntally. There is no evidence of bilateral lower extremity deep vein thrombosis. The bilateral great saphenous veins appear patent and compressible segmentally. Ordering Physician: Kayla Longo Performed By: Floresita Bah RVT
[2022-10-16 16:20] LABS: Bedside Glucose 107 mg/dL (74-106)
[2022-10-16 23:11] LABS: Bedside Glucose 108 mg/dL (74-106)
[2022-10-16] MEDS: Menthol/Lanolin/Calamine/Znox 113 GM Tube 1 APPLIC TOPICAL (23:23)
[2022-10-17 02:00] VITALS: BP 128/57; PULSE 107; RESP 18; RESP 20; TEMP 38.3; O2SAT 94
[2022-10-17] MEDS: Acetaminophen 500 MG Tablet 1000 MG PO ×3 (02:02→18:56)
[2022-10-17 04:00] VITALS: BP 144/82; PULSE 89; RESP 18; TEMP 37.7; O2SAT 97
[2022-10-17 05:16] VITALS: BMI 65.2
[2022-10-17] MEDS: Menthol/Lanolin/Calamine/Znox 113 GM Tube 1 APPLIC TOPICAL (05:34)
[2022-10-17 06:56] LABS: Absolute Lymphocyte Count 1.64 X10^3/uL (0.83-4.51); Absolute Neutrophil Count 15.6 X10^3/uL (2.0-7.7); Basophil# 0.03 X10^3/uL; Basophil% 0.2 % (0-1); Hematocrit 41.5 % (40-54); Hemoglobin 12.3 g/dL (13.0-16.5); Lymphocyte # 1.64 X10^3/ul (0.83-4.51); Lymphocyte % 9.1 % (19-41); Mean Corp Hgb Conc 29.6 g/dL (32-36); Mean Corpuscular Hgb 28.9 pg (27.0-32.0); Mean Corpuscular Volume 97.4 fL (80-94); Mean Platelet Vol. 10.4 fl (6.2-12.0); Monocyte# 0.58 X10^3/uL; Monocyte% 3.2 % (0-10); NRBC Flagged by Analyzer 0 % (0-5); Neutrophil # 15.57 X10^3/uL (2.7-7.7); Neutrophil % 86.8 % (47-70); Platelet Count 191 K/mm3 (150-450); RBC Distribution Width CV 14.6 % (11.6-14.6); RBC Distribution Width SD 52.7 fl (35.1-43.9); Red Blood Count 4.26 M/mm3 (4.6-6.2); White Blood Count 17.9 K/mm3 (4.4-11.0)
[2022-10-17 07:30] LABS: Bedside Glucose 111 mg/dL (74-106)
[2022-10-17 07:35] LABS: ALB/GLOB Ratio 0.7 RATIO (0.9-2.4); AST(SGOT) 14 U/L (15-37); Alanine Aminotransfer ALT/SGPT 25 U/L (16-61); Albumin, Serum 2.8 g/dL (3.2-5.0); Alkaline Phosphatase 59 U/L (45-117); Anion Gap 9 (5-15); BUN 16 mg/dL (7-18); BUN/Creat Ratio 13.1 RATIO (10-20); Calcium,Total 8.5 mg/dL (8.5-10.1); Chloride 106 mmol/L (98-107); Creatinine, Serum 1.22 mg/dL (0.70-1.30); EST Glomerular Filtration Rate 70 mL/min (>60); Est Glom Filt Rate - Afr Amer 85 mL/min (>60); Estimated Creatinine Clearance 89.23 ml/min; Globulin 4.2 g/dL (2.2-4.2); Glucose 126 mg/dL (74-106); Magnesium 1.7 mg/dL (1.6-2.6); Phosphorus 2.4 mg/dL (2.5-4.9); Potassium 3.8 mmol/L (3.5-5.1); Sodium Level 135 mmol/L (136-145)
[2022-10-17 08:51] VITALS: BP 119/73; PULSE 96; RESP 23; TEMP 37.6; O2SAT 97
[2022-10-17] MEDS: Enoxaparin 40 MG/0.4 ML Syringe SC ×2 (08:57→22:20)
[2022-10-17] MEDS: Ibuprofen 400 MG Tablet PO (08:57)
[2022-10-17] MEDS: Na Biphos/Potassium Phosphate PACKET 1 PACKET PO ×4 (08:57→22:20)
[2022-10-17 10:34] LABS: Vancomycin, Trough Level 11.3 ug/mL (5.0-15.0)
--- NOTE | 2022-10-17 10:58 | PCM.RX.CS ---
Consult Pharmacy has been consulted to manage selected antiobiotic: Vancomycin Type of Consult: Follow-up Labs: Sodium 135 mmol/L (136-145) L 10/17/22 06:42 Potassium 3.8 mmol/L (3.5-5.1) 10/17/22 06:42 Chloride 106 mmol/L (98-107) 10/17/22 06:42 Carbon Dioxide 20.0 mmol/L (21.0-32.0) L 10/17/22 06:42 Anion Gap 9 (5-15) 10/17/22 06:42 BUN 16 mg/dL (7-18) 10/17/22 06:42 Creatinine 1.22 mg/dL (0.70-1.30) 10/17/22 06:42 Est GFR (MDRD) Af Amer 85 mL/min (>60) 10/17/22 06:42 Est GFR (MDRD) Non-Af 70 mL/min (>60) 10/17/22 06:42 BUN/Creatinine Ratio 13.1 RATIO (10-20) 10/17/22 06:42 Glucose 126 mg/dL (74-106) H 10/17/22 06:42 Vancomycin Trough 11.3 ug/mL (5.0-15.0) 10/17/22 09:30 Microbiology: Microbiology 10/15/22 21:19 Urine, Clean Catch Urine Culture - Preliminary Culture exhibits no growth. 10/15/22 23:16 Mucosa - Nose Respiratory Panel (PCR) - Final 10/15/22 21:19 Urine, Random Streptococcus pneumoniae Antigen (M - Final 10/15/22 21:19 Urine, Clean Catch Legionella Antigen - Final 10/15/22 17:25 Nasal Secretion SARS-CoV-2 & FLU Antigen (Rapid) - Final Goal Trough: 15-20 mcg/mL Pharmacy Plan for Drug Dosing: VANCOMYCIN LEVEL RECEIVED Current Vancomycin Dose: 1250MG Q8 Number of Doses Received: 2000MG X1 AND 1250MG X2 Vancomycin Level: 11.3 MG/DL Hours Since Last Dose: 7.5 Renal Function: SCR 1.22 MG/DL, CRCL 154 ML/MIN USING ADJ BW (133.9 KG), ACTUAL WEIGHT 218.3 KG Renal Function Trend: SLIGHTLY IMPROVED FROM 1.37 MG/DL YESTERDAY Lab/Micro: BLOOD CX PENDING, URINE CX NO GROWTH Vancomycin Plan/Comments: 7.5 HOUR LEVEL IS SUBTHERAPEUTIC AT 11.3 MG/DL (GOAL 15-20 MG/DL). WILL INCREASE DOSE TO 1500MG Q8 STARTING TONIGHT @ 1800 AND GET A TROUGH PRIOR TO 4TH DOSE OF NEW REGIMEN. Pending Level: 10/18/22 @ 1911 Pharmacy Service will continue to monitor and adjust dosing as required.
[2022-10-17 12:11] VITALS: BP 140/83; PULSE 90; RESP 18; TEMP 36.9; O2SAT 98
[2022-10-17 12:35] LABS: Bedside Glucose 133 mg/dL (74-106)
--- NOTE | 2022-10-17 12:36 | PCM.PN.ID ---
Physical Exam Narrative Feeling a little better. LLE sore, redness and induration improved. Fever overnight. Const alert and no apparent distress Resp normal air movement and clear to auscultation bilaterally Cardio regular rate and regular rhythm GI soft to palpation, non-tender and non-distended Extremity General Extremity: edema Skin Skin Narrative: LLE redness, no drainage ID ID: Route of nutrition/ use of supplements: [] Nutritional Intake: [] IV Site: [] [place] Catheter: [] Assessment & Plan Assessment/Plan (1) Lactic acidosis: (2) PANDA (acute kidney injury): (3) Fever: PLAN: Due to LLE cellulitis, nonpurulent, suspect beta strep as cause. Resp pcr panel neg. Covid Ag neg. UA neg. CXR clear. PANDA improved. On empiric vanc/zosyn, will narrow to vanc/cefazolin. If continues to improve, plan on home with 1 week po doxy 100mg bid and keflex 500mg tid. Will follow (4) Cellulitis:
--- NOTE | 2022-10-17 13:58 | PCM.PN.HOSP ---
Reason for Visit Reason for Visit: Fever/chills/generalized weakness/malaise Subjective Subjective Patient states he feels about 50% better than when he was admitted. Left lower extremity leg erythema was identified after the patient finally agreed to take his pants off yesterday to be further evaluated. It appeared that he had cellulitis in the area was outlined. Outlined area appears to be improved and erythematous area in the left groin is much less tender and indurated. Objective Data Objective Data Vital Signs: Vital Signs Temp Pulse Resp BP Pulse Ox O2 Del Method 98.5 F 90 18 140/83 H 98 Room Air 10/17/22 12:11 10/17/22 12:11 10/17/22 12:11 10/17/22 12:11 10/17/22 12:11 10/17/22 12:20 Oxygen Delivery Method Room Air Weight: 218.3 kg Body Mass Index (BMI) 65.2 Intake & Output: Intake and Output for Last 24 Hours 10/15/22 10/16/22 10/17/22 23:59 23:59 23:59 Intake Total 500 / 500 6281.5 / 6281.5 2408.33 / 2408.33 Balance 500 / 500 6281.5 / 6281.5 2408.33 / 2408.33 Lab / Micro Data Result Diagrams: 10/17/22 06:42 10/17/22 06:42 Labs: Laboratory Results - last 24 hr 10/16/22 11:24: COVID-19 (RICHELLE) Not Detected 10/16/22 16:02: POC Glucose 107 H 10/16/22 22:51: POC Glucose 108 H 10/17/22 06:42: WBC 17.9 H, RBC 4.26 L, Hgb 12.3 L, Hct 41.5, MCV 97.4 H, MCH 28.9, MCHC 29.6 L, RDW Std Deviation 52.7 H, RDW Coeff of David 14.6, Plt Count 191, MPV 10.4, Immature Gran % (Auto) 0.700, Neut % (Auto) 86.8 H, Lymph % (Auto) 9.1 L, Mccormick % (Auto) 3.2, Eos % (Auto) 0.0, Baso % (Auto) 0.2, Absolute Neuts (auto) 15.6 H, Absolute Lymphs (auto) 1.64, Nucleated RBC % 0 10/17/22 06:42: Sodium 135 L, Potassium 3.8, Chloride 106, Carbon Dioxide 20.0 L, Anion Gap 9, BUN 16, Creatinine 1.22, Estim Creat Clear Calc 89.23, Est GFR (MDRD) Af Amer 85, Est GFR (MDRD) Non-Af 70, BUN/Creatinine Ratio 13.1, Glucose 126 H, Calcium 8.5, Phosphorus 2.4 L, Magnesium 1.7, Total Bilirubin 0.40, AST 14 L, ALT 25, Alkaline Phosphatase 59, Total Protein 7.0, Albumin 2.8 L, Globulin 4.2, Albumin/Globulin Ratio 0.7 L 10/17/22 07:11: POC Glucose 111 H 10/17/22 09:30: Vancomycin Trough 11.3 10/17/22 12:09: POC Glucose 133 H Micro: Microbiology 10/15/22 21:19 Urine, Clean Catch Urine Culture - Preliminary Culture exhibits no growth. 10/15/22 23:16 Mucosa - Nose Respiratory Panel (PCR) - Final 10/15/22 21:19 Urine, Random Streptococcus pneumoniae Antigen (M - Final 10/15/22 21:19 Urine, Clean Catch Legionella Antigen - Final 10/15/22 17:25 Nasal Secretion SARS-CoV-2 & FLU Antigen (Rapid) - Final Radiography Diagnostic Testing: Radiology Impression Venous Doppler Study 10/16/22 15:41 Interpretation Summary Deep veins of the bilateral lower extremities are patent and compressible segmentally. There is no evidence of bilateral lower extremity deep vein thrombosis. The bilateral great saphenous veins appear patent and compressible segmentally. Ordering Physician: Kayla Longo Performed By: Floresita Bah, RVT Physical Exam Const alert, oriented x3, no apparent distress and well nourished Constitutional Narrative: Morbidly obese male, sitting up in bed, nursing at bedside, appears comfortable, nontoxic appearing HEENT head/scalp atraumatic, moist oral mucous membranes and oropharynx normal Resp normal respiratory effort, no retractions, no use of accessory muscles and clear to auscultation bilaterally Resp Narrative: Distant secondary to body habitus Auscultation: Negative for rales, rhonchi or wheezes Cardio regular rate, regular rhythm, S1 normal heart sound, S2 normal heart sound, no murmurs, no rub, no gallops and no clicks Cardio Narrative: Distant secondary to body habitus GI normal to inspection, nondistended, normoactive bowel sounds, soft to palpation and non-tender GI Narrative: Largely protuberant abdomen Extremity Extremity Narrative: 1-2+ left lower extremity edema that is pitting in nature, left lower extremity is erythematous up to the groin, groin is less indurated and leg appears left erythematous today with reduced tenderness, right lower extremity with trace edema, no cyanosis or clubbing identified Skin No no rashes or lesions noted, No no wounds, skin turgor normal, no jaundice, no petechiae and no mottling Skin Narrative: Left lower extremity as noted above, toenail noted to have a wound on the medial aspect of the great toe which I suspect is a nidus for infection, no other wounds identified Neuro oriented x3, moves all extremities, no focal motor deficits and no sensory deficits noted Speech: speech normal Psych Psych Narrative: Affect is flat Assessment & Plan Assessment/Plan (1) Fever: (2) Leukocytosis: (3) PANDA (acute kidney injury): (4) Newly diagnosed diabetes: (5) Hypophosphatemia: (6) Hypomagnesemia: (7) Lactic acidosis: (8) Cellulitis: PLAN: Plan Left lower extremity cellulitis -Patient does NOT meet sepsis criteria per SEP-3 guidelines -Antibiotics changed to cefazolin and vancomycin per ID -Markedly elevated CRP -Blood culture still pending -Urine cultures unremarkable -Strep pneumo and Legionella antigens are negative -COVID and flu viral and PCR were negative -Respiratory viral panel is negative -Procalcitonin was greater than 13 -MRSA screen is negative and can likely discontinue vancomycin however will wait for ID to do this -Continue as needed Tylenol PANDA -Resolving -Baseline serum creatinine appears to be between 0.8 and 1 -Serum creatinine today down to 1.22 from 1.37 -Okay to discontinue IV fluids -Encourage p.o. intake -Avoid nephrotoxins -Repeat BMP in a.m. Hypophosphatemia -Repeat oral Phos 3 times daily x1 day -Repeat Phos level in a.m. Hypomagnesemia - resolved New DM-2/insulin resistance -A1c was found to be 6.1 on admission consistent with the diagnosis of diabetes -Should be amenable to diet control -Carb controlled diet ordered -Monitor sugars with acute illness Tobacco abuse -Recommend cessation -Nicotine patch if desired Morbid obesity -Recommend weight loss -BMI 54.7 -Complicates treatment, prognosis, outcomes -Highly suspect obstructive sleep apnea and would recommend outpatient sleep study after discharge DVT prophylaxis -Lovenox 40 mg twice daily CODE STATUS -Full code Charges/Coding Visit Charges Inpatient E&M: 34551 Subs Hosp L2
[2022-10-17] MEDS: Cefazolin 2 GM in 0.9% Normal Saline 100 ML IV ×2 (14:00→22:18)
[2022-10-17 15:00] VITALS: BP 138/77; PULSE 88; RESP 18; TEMP 37.1; O2SAT 98
[2022-10-17 16:26] LABS: Bedside Glucose 116 mg/dL (74-106)
[2022-10-17 22:09] VITALS: BP 128/73; PULSE 82; RESP 18; TEMP 36.8; O2SAT 96
[2022-10-17 22:45] LABS: Bedside Glucose 97 mg/dL (74-106)
[2022-10-18 03:38] VITALS: BP 149/82; PULSE 83; RESP 18; TEMP 36.8; O2SAT 97
[2022-10-18 03:42] VITALS: BMI 64.4
[2022-10-18] MEDS: Cefazolin 2 GM in 0.9% Normal Saline 100 ML IV (06:52)
[2022-10-18] MEDS: Na Biphos/Potassium Phosphate PACKET 1 PACKET PO (06:53)
[2022-10-18 07:20] LABS: Bedside Glucose 104 mg/dL (74-106)
[2022-10-18 07:47] LABS: Absolute Lymphocyte Count 1.55 X10^3/uL (0.83-4.51); Basophil# 0.01 X10^3/uL; Basophil% 0.1 % (0-1); Eosinophil# 0.01 X10^3/uL; Eosinophils% 0.1 % (0-5); Hematocrit 36.1 % (40-54); Hemoglobin 11.6 g/dL (13.0-16.5); Lymphocyte # 1.55 X10^3/ul (0.83-4.51); Lymphocyte % 12.7 % (19-41); Mean Corp Hgb Conc 32.1 g/dL (32-36); Mean Corpuscular Hgb 29.4 pg (27.0-32.0); Mean Corpuscular Volume 91.6 fL (80-94); Mean Platelet Vol. 10.7 fl (6.2-12.0); Monocyte# 0.53 X10^3/uL; Monocyte% 4.4 % (0-10); NRBC Flagged by Analyzer 0 % (0-5); Neutrophil # 10.04 X10^3/uL (2.7-7.7); Neutrophil % 82.5 % (47-70); Platelet Count 197 K/mm3 (150-450); RBC Distribution Width CV 14.5 % (11.6-14.6); Red Blood Count 3.94 M/mm3 (4.6-6.2); White Blood Count 12.2 K/mm3 (4.4-11.0)
[2022-10-18] MEDS: Acetaminophen 500 MG Tablet 1000 MG PO (07:53)
[2022-10-18 08:07] LABS: Anion Gap 8 (5-15); BUN 13 mg/dL (7-18); Calcium,Total 8.6 mg/dL (8.5-10.1); Chloride 109 mmol/L (98-107); Creatinine, Serum 1.08 mg/dL (0.70-1.30); EST Glomerular Filtration Rate 81 mL/min (>60); Est Glom Filt Rate - Afr Amer 98 mL/min (>60); Estimated Creatinine Clearance 100.79 ml/min; Glucose 126 mg/dL (74-106); Phosphorus 2.8 mg/dL (2.5-4.9); Sodium Level 138 mmol/L (136-145)
[2022-10-18 09:05] VITALS: BP 130/82; PULSE 87; RESP 14; TEMP 36.8; O2SAT 95
[2022-10-18 09:15] VITALS: O2SAT 95
--- NOTE | 2022-10-18 11:03 | CASEMGMT ---
HANNA JOYCE Follow-up: Per Dr. Longo, [facility] and treatment of his left toe wound. Call placed to the [facility] and next available appointment is next 10/24/22 at 0900. Pt to arrive 30 minutes prior to complete paperwork or pick out hand prior to appointment. This RN CM met with pt face to face. Explained referral and pt agreeable and states he can attend the above noted appointment at the stated day and time. States he will pick out hand the paperwork after discharge. Pt denies any additional concerns or dc needs at this time. Aleta Parnell RN CM
--- NOTE | 2022-10-18 11:47 | DS.PCM_ITS ---
Providers Date of Admission: 10/15/22 Date of Discharge: 10/18/22 Primary Care Physician: Joi Primary Care Phys Consultations 10/16/22 06:53 Consult: Infectious Disease Routine Consulting Provider: Tomas Laurent Reason for Consult: Fever with sepsis, seems viral EMERGENT Consult: No MD Notified: Yes Date Notified: 10/16/22 Time Notified: 06:53 Method of Notification: Text Reason For Visit: VIRAL FEVER Diagnosis Discharge Diagnosis (1) Fever: Status: Acute Code(s): R50.9 - Fever, unspecified (2) Leukocytosis: Status: Acute Code(s): D72.829 - Elevated white blood cell count, unspecified (3) PANDA (acute kidney injury): Status: Resolved Code(s): N17.9 - Acute kidney failure, unspecified (4) Newly diagnosed diabetes: Status: Acute Code(s): E11.9 - Type 2 diabetes mellitus without complications (5) Hypophosphatemia: Status: Acute Code(s): E83.39 - Other disorders of phosphorus metabolism (6) Hypomagnesemia: Status: Resolved Code(s): E83.42 - Hypomagnesemia (7) Lactic acidosis: Status: Resolved Code(s): E87.20 - Acidosis, unspecified (8) Cellulitis: Status: Acute Code(s): L03.90 - Cellulitis, unspecified Medications at Discharge Home Medications cephalexin 500 mg capsule 500 mg PO TID #21 caps 10/18/22 doxycycline hyclate 100 mg capsule 100 mg PO BID #14 caps 10/18/22 Hospital Course Operations None Procedures EKG and - (Chest x-ray/lower extremity venous duplex) Summary of Care Provided Minutes Spent on Discharge: 37 Hospital Course: Mr. Tom is a 37-year-old morbidly obese white male who presented to the emergency department on 10/15/2022 with fever, chills, generalized weakness and malaise that started the day prior to presentation.? Per the history, his took his temperature at home and it was 108 ?F.? In the emergency department he was 101 Tmax and was found to be tachycardic and tachypneic.? He evidently had a productive cough for about 2 weeks and is trying to establish with a new primary care physician and was COVID tested 2 weeks ago and found to be negative.? On the day of presentation, he developed some nausea and headache as well as generalized malaise and myalgias.? He was found to have a marked leukocytosis with a white count of 20.7 and a left shift having a 92.5% neutrophilia.? Coags were normal.? Chemistry was unremarkable.? Lactic acid was 2.3.? CRP was 22.4.? His urine was not consistent with acute infection.? Rapid and COVID PCR were negative.? Respiratory viral panel was negative.? Strep pneumo and Legionella antigens were negative.? Patient had ongoing temperatures for about 24 hours after presentation. Originally he would not take his pants off and let us evaluate him further but we did convince him to do so and when we did he was noted to have fairly significant left lower extremity cellulitis. From the time of admission he was maintained on broad-spectrum antibiotics initially with vancomycin and Zosyn. Infectious disease was consulted and narrowed him to Ancef and vancomycin. His left lower extremity slowly did not improve with retraction of the red area as an decrease swelling and induration. After evaluation we do suspect that the nidus for his infection was a toenail wound on that lower extremity. With the swelling, he had developed some seepage from the lower extremity. At the time of discharge we did make a referral to wound cares to assure that his leg did not get any worse and continued to improve. He does not have a primary care physician. I have encouraged him to find a primary care physician and obtain follow-up with them as soon as possible. He had a markedly elevated procalcitonin. His fever curve improved and he was afebrile for 24 hours at the time of discharge. His white count trended down from greater than 20,000 on admission and then discharge was 12.2. He transiently developed an PANDA 24 hours after admission but this resolved with IV hydration. Infectious disease recommended discharging him with a 7-day course of p.o. doxycycline at 100 mg p.o. twice daily and Keflex 500 mg p.o. 3 times daily. We did assess a hemoglobin A1c while he was hospitalized and it was found to be 6.1 consistent with insulin resistance. He does have a family history of diabetes. He needs to monitor his outpatient oral intake and we did have the dietitian see him gabriellail e he is hospitalized. Prescriptions were sent to the pharmacy at the hospital and these were delivered to him prior to discharge. I encouraged him to complete the entire course and to drink a full glass of water with these and sit upright for at least 30 minutes following administration. Again he has follow- up appointment to be seen in the wound center and I recommended he follow-up with his primary care physician/establish with a primary care physician as soon as possible. He was discharged home in stable condition on 10/18/2022. Discharge diagnoses: Left lower extremity cellulitis-resolving PANDA-resolved Hypophosphatemia-resolved Hypomagnesemia-resolved Insulin resistance Tobacco abuse Morbid obesity Physical Exam Narrative Patient states he is feeling much better overall and anxious to go home if possible. 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, appears comfortable, nontoxic appearing General Appearance: cooperative, comfortable, well kempt and well developed Orientation / Consciousness: awake, oriented to person, oriented to place and oriented to time Exam Limitations: no limitations Nutritional Appearance: morbidly obese HEENT normocephalic, head/scalp atraumatic, hearing grossly normal bilaterally, moist oral mucous membranes and oropharynx normal HEENT Narrative: Mallampati 4, no thrush, dentition is good Eyes PERRL, EOMs intact bilaterally and conjunctivae normal Eyes Narrative: No scleral icterus Neck no lymphadenopathy and supple Neck Narrative: Trachea midline, neck is short and thick, no thyroid enlargement Resp normal respiratory effort, no retractions, no use of accessory muscles and clear to auscultation bilaterally Resp Narrative: Distant secondary to body habitus Auscultation: Negative for rales, rhonchi or wheezes Cardio regular rate, regular rhythm, S1 normal heart sound, S2 normal heart sound, no murmurs, no rub, no gallops and no clicks Cardio Narrative: Distant secondary to body habitus GI normal to inspection, nondistended, normoactive bowel sounds, soft to palpation and non-tender GI Narrative: Largely protuberant abdomen Extremity Extremity Narrative: 1-2+ left lower extremity edema that is pitting in nature, left lower extremity is erythematous up to the groin--> erythema is tracting and induration has resolved, left lower extremity is still edematous with some seepage related to the edema but no significant new open areas right lower extremity with trace edema, no cyanosis or clubbing identified Skin No no rashes or lesions noted, No no wounds, skin turgor normal, no jaundice, no petechiae and no mottling Skin Narrative: Left lower extremity as noted above, toenail noted to have a wound on the medial aspect of the great toe which I suspect is a nidus for infection, no other wounds identified Neuro oriented x3, CN's II-XII intact bilaterally, moves all extremities, no focal motor deficits and no sensory deficits noted Neuro Narrative: Ambulates independently and normally Speech: speech normal Motor Exam: strength 5/5 throughout Psych affect normal Psych Narrative: Very pleasant, appropriately interactive, appears as if he is feeling much better Weight / BMI Weight Weight: 215.4 kg Body Mass Index (BMI) 64.4 ABG / Lab / Microbiology Data Result Diagrams: 10/18/22 07:23 10/18/22 07:23 Laboratory: Laboratory Results - last 24 hr 10/17/22 12:09: POC Glucose 133 H 10/17/22 15:54: POC Glucose 116 H 10/17/22 22:16: POC Glucose 97 10/18/22 06:55: POC Glucose 104 10/18/22 07:23: WBC 12.2 H, RBC 3.94 L, Hgb 11.6 L, Hct 36.1 L, MCV 91.6 D, MCH 29.4, MCHC 32.1 D, RDW Std Deviation 49.0 H, RDW Coeff of David 14.5, Plt Count 197, MPV 10.7, Immature Gran % (Auto) 0.200, Neut % (Auto) 82.5 H, Lymph % (Auto) 12.7 L, [place] % (Auto) 4.4, Eos % (Auto) 0.1, Baso % (Auto) 0.1, Absolute Neuts (auto) 10.0 H, Absolute Lymphs (auto) 1.55, Nucleated RBC % 0 10/18/22 07:23: Sodium 138, Potassium 4.0, Chloride 109 H, Carbon Dioxide 21.0, Anion Gap 8, BUN 13, Creatinine 1.08, Estim Creat Clear Calc 100.79, Est GFR (MDRD) Af Amer 98, Est GFR (MDRD) Non-Af 81, BUN/Creatinine Ratio 12.0, Glucose 126 H, Calcium 8.6, Phosphorus 2.8 Microbiology: Microbiology 10/17/22 18:53 Sputum, Expectorated/Coughed Gram Stain - Final 10/17/22 18:53 Sputum, Expectorated/Coughed Respiratory Culture - Preliminary Appears to be normal respiratory brian. Further studies to follow. 10/15/22 20:13 Blood Culture (Wb) - Right Hand Blood Culture - Preliminary No growth in 48 hours. 10/15/22 19:57 Blood Culture (Wb) - Anticubital Left Blood Culture - Preliminary No growth in 48 hours. 10/15/22 21:19 Urine, Clean Catch Urine Culture - Final Culture exhibits no growth. 10/15/22 23:16 Mucosa - Nose Respiratory Panel (PCR) - Final 10/15/22 21:19 Urine, Random Streptococcus pneumoniae Antigen (M - Final 10/15/22 21:19 Urine, Clean Catch Legionella Antigen - Final 10/15/22 17:25 Nasal Secretion SARS-CoV-2 & FLU Antigen (Rapid) - Final D/C Instructions Discharge Diet: Low fat / Low cholesterol and 2000 Calorie Control Diet Discharge Activity: Return to Normal Activity Return to work on: 10/22/22 Meaningful Use Info Meaningful Use Diagnoses (Choose all that apply): None applicable Discharge Plan Admission Admit Date/Time: 10/15/22 23:04 Primary Reason for Your Visit: Fever/chills/generalized weakness/malaise Attending Provider: Kayla Longo Primary Care Provider: Care Physician,No Primary Consulting Providers: Delon Davis ; Tomas Laurent Instructions Additional Instructions / Restrictions: 1. Your infection was found to be caused by left lower extremity cellulitis. I expect the reason for this infection is a wound on your toenail. Your cellulitis seems to be improving. You were discharged on oral antibiotics to include doxycycline and Keflex. Please complete both prescriptions in their entirety. After taking both pills please drink with a full 8 ounce glass of water and sit upright for 30 minutes following. 2. You have a follow-up appointment to be seen at the wound center on 3. Please establish with a primary care physician as soon as possible and be seen by them that your and their earliest convenience Discharge Orders/Prescriptions Prescriptions: New doxycycline hyclate 100 mg capsule 100 mg PO BID Qty: 14 0RF cephalexin 500 mg capsule 500 mg PO TID Qty: 21 0RF Referrals / Follow Up: Care Physician,No Primary [Primary Care Provider] - Disposition Disposition (needs filled in before D/C Order can be placed): Home, Self Care Charges/Coding Visit Charges Inpatient E&M: 18614 Disch Hosp >30min
[2022-10-18 11:55] LABS: Bedside Glucose 111 mg/dL (74-106)
== END 2022-10-18 13:10 | disposition home or self-care (01) | DRG 383 ==
LOC: ED 22:59 → ICU 23:45 → PCU 10-17 11:42
PROVIDERS: Internal Medicine Infectious Disease; Admitting Provider Internal Medicine; Emergency Provider Emergency Medicine; Visit Provider Internal Medicine
DX: L03.116 Cellulitis of left lower limb (principal); E66.2 Morbid (severe) obesity with alveolar hypoventilation; N17.9 Acute kidney failure, unspecified; E11.9 Type 2 diabetes mellitus without complications; Z68.44 Body mass index [BMI] 60.0-69.9, adult; E83.39 Other disorders of phosphorus metabolism; F17.200 Nicotine dependence, unspecified, uncomplicated; J20.9 Acute bronchitis, unspecified; E83.42 Hypomagnesemia; M79.89 Other specified soft tissue disorders; I89.0 Lymphedema, not elsewhere classified; Z20.822 Contact with and (suspected) exposure to COVID-19
CPT/HCPCS: 36415; 71045; 80048; 80053; 80076; 80202; 81001; 82550; 82962; 83036; 83605; 83735; 84100; 84145; 85025; 85610; 85730; 86140; 87040; 87070; 87086; 87205; 87428; 87449; 87633; 87635; 87641; 93005; 93970; 94668; 99284; 99406; J7030; J7040; J7050; J7120; U0003; U0005

== ENCOUNTER 2022-10-20 14:37 | Emergency (ER) | payer MEDICAID, SELFPAY ==
[2022-10-20 14:38] VITALS: BP 179/111; PULSE 97; RESP 18; TEMP 35.7; O2SAT 99
[2022-10-20 14:46] VITALS: BP 168/89; PULSE 92; RESP 18; TEMP 36; O2SAT 99
--- NOTE | 2022-10-20 14:46 | EDS_ITS ---
HPI History of Present Illness Chief Complaint: Cellulitis Narrative Narrative: 37-year-old male past medical history of lymphedema and cellulitis was recently discharged from the hospital 2 days ago because he was septic from the cellulitis on his left lower extremity. He presents today because of increased drainage that is clear from his left lower extremity. He states that his skin has bubbled up more than it had when he was admitted. He denies any fever or chills, no nausea or vomiting. He states his left lower extremity still feels tight and painful. He has an appointment with the wound care center on Saturday, 4 days from now. He was discharged from the hospital on cephalexin and doxycycline. He presents because of the increased drainage of his leg, and he wanted to make sure that it was normal. [facility] Medical History Morbid obesity Tobacco abuse Home Medications cephalexin 500 mg capsule 500 mg PO TID #21 caps 10/18/22 [Rx Last Taken Unknown] doxycycline hyclate 100 mg capsule 100 mg PO BID #14 caps 10/18/22 [Rx Last Taken Unknown] Allergy/AdvReac Type Severity Reaction Status Date / Time No Known Allergies Allergy Verified 10/20/22 14:39 Social History Smoking Status: Former smoker ROS ROS ED ROS Narrative Constitutional: No fever, no chills. HEENT: No sore throat. No neck pain. No loss of vision. No rhinorrhea. Cardiovascular: No chest pain. No palpitations. Bilateral pedal edema. Left is worse than right, increased drainage from left leg. Respiratory: No cough, no shortness of breath. Abdominal: No abdominal pain. No nausea. No vomiting. Genitourinary: No dysuria. No hematuria. Musculoskeletal: No myalgias. No arthralgias. Neurologic: No headaches. No dizziness. No lightheadedness. Skin: No rash. No change in color. History of cellulitis with improved redness. Psychiatric: No depression. No anxiety. EXAM Physical Exam Narrative Exam Narrative: Afebrile. Vital signs noted. HEENT: Normocephalic. Atraumatic. PERRL, EOMI. Neck soft and supple. No point tenderness or step off. Cardiovascular: Regular rate and rhythm. No murmurs, rubs, or gallops appreciated. Respiratory: No tachypnea. Lungs clear to auscultation bilaterally. Gastrointestinal: Abdomen soft, nontender, with normoactive bowel sounds. No rebound or guarding. Neurological: Awake. Alert. Nonfocal, nonlateralizing. Skin: No rash. Mild erythema left lower extremity, inside previous pen demarcation, no pallor. Epidermal changes of left lower extremity consistent with lymphedema. Musculoskeletal: Bilateral pedal edema, with skin changes on left with clear drainage. Full range of motion extremities. Const Vital Signs: 10/20/22 14:38 10/20/22 14:46 10/20/22 14:47 Temperature 96.3 F L 96.8 F L Temperature Source Temporal Oral Pulse Rate 97 92 Respiratory Rate 18 18 Respiratory Effort Normal Non-Labored Respiratory Pattern Normal Blood Pressure 179/111 H 168/89 H Blood Pressure Mean 133 115 Pulse Ox 99 99 Oxygen Delivery Method Room Air Room Air MDM MDM MDM Narrative Medical decision making narrative: I reviewed the patient's prior records, including his inpatient discharge instructions. Infectious disease had been consulted and recommended the doxycycline and the cephalexin. He states he has an appointment with wound care center on Saturday. Additionally, I was able to speak directly with Dr. Apple Longo, who is familiar with the patient. Currently, I see no signs of sepsis and do not feel that laboratory work is indicated. His cellulitis of his left lower extremity had been improving prior to discharge. Currently, he is afebrile. I do think that he is experiencing more chronic skin changes from his lymphedema and his healing cellulitis. His left lower extremity will be dressed with dry, sterile dressing and perhaps Sterling bandage. He requested Lasix, but I do feel that this is best prescribed by the wound care center or primary care physician as it can cause increasing creatinine and electrolyte disturbance. I do not feel that he will require readmission to the hospital. Disposition is discharged home in stable condition. Discharge Plan Triage Chief Complaint: Cellulitis ED Provider: Landon Hernandez Dx/Rx/DC Orders Clinical Impression: Cellulitis, Lymphedema Instructions: ED Cellulitis, ED Lymphedema Prescriptions: No Action doxycycline hyclate 100 mg capsule 100 mg PO BID Qty: 14 0RF cephalexin 500 mg capsule 500 mg PO TID Qty: 21 0RF Primary Care Provider: Care Physician,No Primary Referrals: Care Physician,No Primary [Primary Care Provider] - Center,Wound [Non-Staff] - As soon as possible Activity Restrictions/Additional Instructions: Continue your antibiotics as previously directed. Make sure you follow-up with the wound care center on Saturday as scheduled. Return with fever, purulent drainage, new or worsening symptoms. Disposition Disposition: Home, Self Care Discharge Date/Time: 10/20/22 15:15
[2022-10-20 14:47] VITALS: BMI 65.7
== END 2022-10-20 15:15 | disposition home or self-care (01) ==
PROVIDERS: Emergency Provider Emergency Medicine; Visit Provider Emergency Medicine
DX: L03.116 Cellulitis of left lower limb (principal); Z87.891 Personal history of nicotine dependence; I89.0 Lymphedema, not elsewhere classified
CPT/HCPCS: 99282

== ENCOUNTER 2022-10-31 09:30 | Outpatient (RCR) | payer MEDICAID, SELFPAY ==
[2022-10-24 09:21] VITALS: BP 164/95; PULSE 81; RESP 18; TEMP 36.2; BMI 65.4
--- NOTE | 2022-10-24 12:06 | PCM.WC.HP ---
History of Present Illness Date of Service: 10/24/22 Chief Complaint: Follow-up left lower leg cellulitis History of Wound: 37-year-old grossly obese male seen in the hospital around October 18 was admitted for sepsis and cellulitis also had a viral fever of 108. Patient was seen by infectious disease and cultures and found to have a left lower leg strep related infection and was started on vancomycin and Zosyn and then for 3 days and then sent home on cephalexin and doxycycline. Patient improved in the hospital and was discharged 3 days later ended up back in the emergency room because he developed a thick yellow fibrous gelatinous growth over his entire left lower leg. It seeps yellow fluid. Patient already had a appointment with wound center on Saturday therefore they went to the emergency room and they just suggested following up with the wound center because he did not appear septic. 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 [facility] Medical History Morbid obesity Tobacco abuse Home Medications cephalexin 500 mg capsule 500 mg PO TID #21 caps 10/18/22 [Rx Last Taken Unknown] doxycycline hyclate 100 mg capsule 100 mg PO BID #14 caps 10/18/22 [Rx Last Taken Unknown] Allergy/AdvReac Type Severity Reaction Status Date / Time No Known Allergies Allergy Verified 10/24/22 09:36 Social History Smoking Status: Never smoker ROS Constitutional Constitutional: Reports systems reviewed and no addt'l complaints, except as documented Eyes Eyes: Reports systems reviewed and no addt'l complaints, except as documented ENT HEENT: Reports systems reviewed and no addt'l complaints, except as documented Cardiovascular Cardiovascular: Reports systems reviewed and no addt'l complaints, except as documented Respiratory/Chest Respiratory/Chest: Reports systems reviewed and no addt'l complaints, except as documented Gastrointestinal Gastrointestinal: Reports systems reviewed and no addt'l complaints, except as documented Genitourinary Genitourinary: Reports systems reviewed and no addt'l complaints, except as documented Musculoskeletal Musculoskeletal: Reports systems reviewed and no addt'l complaints, except as documented Integumentary Integumentary: Reports other Details: Yellow thick gelatinous growth over left lower leg with yellow clear drainage circumferential Neurologic Neurologic: Reports systems reviewed and no addt'l complaints, except as documented Psychiatric Psychiatric: Reports systems reviewed and no addt'l complaints, except as documented Endocrine Endocrinology: Reports systems reviewed and no addt'l complaints, except as documented Hematologic/Lymphatic Hematologic/Lymphatic: Reports systems reviewed and no addt'l complaints, except as documented Allergic/Immunologic Allergic/Immunologic: Reports systems reviewed and no addt'l complaints, except as documented Vital Signs Vital Signs Vital Signs: 10/24/22 09:21 Temperature 97.1 F L Temperature Source Temporal Pulse Rate 81 Respiratory Rate 18 Blood Pressure 164/95 H Blood Pressure Mean 118 Blood Pressure Source Monitor Blood Pressure Position Sitting Blood Pressure Location Right Forearm Oxygen Delivery Method Room Air Weight Weight: 483 lb Body Mass Index (BMI) 65.4 Physical Exam Const oriented x3 General Appearance: cooperative Exam Limitations: no limitations Lymph Lymphatic: no lymphadenopathy noted Resp normal respiratory effort Effort and Inspection: able to speak in complete sentences Auscultation: clear to auscultation bilaterally Cardio regular rate and regular rhythm Palpation: normal PMI Rate: regular rate Rhythm: regular rhythm GI Auscultation: normoactive bowel sounds Palpation: soft and no hepatosplenomegaly Extremity General Extremity: normal exam except as noted and edema left (Gelatinous yellow growth over entire circumferential left lower leg) Skin Skin Narrative: Outline of previous infection line no real erythematous foot and leg still edematous. Thick yellow fibrous gelatinous growth over left lower leg with yellow clear drainage no odor Neuro oriented x3 Psych Appearance: grossly normal Speech: normal speech Thought Content: normal thought content Judgement: judgement good Debridement Note Debridement Note Wound debrided: Left lower leg cellulitis Laterality: Left Type of Debridement: Excisional debridement Anesthesia Used: 5% Lidocaine Gel Depth: Down to and including healthy tissue and in the subcutaneous layer Percentage of wound debrided: 100 Instrument Used: 7mm curette, #15 blade and Forceps Tissue Removed: Devitalized tissue Severity: Fat Layer Exposed Amount of bleeding with debridement: Mild Bleeding Controlled with: Compression and gauze Patient tolerated procedure: Patient tolerated procedure well Post-Debridement Measurements and Additional Note: Post-Debridement Measurements/Treatment PETERSON - Nurse 1 - General Ulcer Assessment Start: 10/24/22 09:15 Freq: Status: Active Protocol: ORLIN Activity Type Activity Date Activity User E-sign Co-sign Detail Recorded Client Recorded Date Recorded By Document 10/24/22 09:21 [facility] [id number] 10/24/22 09:34 [facility] 10/24/22 09:21 WC - Today's Visit Information Type of service Initial Visit Arrival Mode Ambulatory Transfer Assistance None Patient Identification Verified (Name & Yes ) Patient Requires Transmission-Based No Precautions Height and Weight Height 6 ft Weight 483 lb Weight in Pounds 483.0 lbs Body Mass Index (BMI) 65.4 BMI Classification Obese BSA - Mumtaz 3.10 Vital Signs Temperature (97.8 F-99.1 F) 97.1 F L Temperature Source Temporal Pulse Rate (60-100) 81 Pulse Location Monitor Respiratory Rate (12-18) 18 Respiratory rate source Observation Oxygen Delivery Method Room Air Blood Pressure (90/60-120/80) 164/95 H Blood Pressure Mean (mm Hg) 118 Source Monitor Position Sitting Blood Pressure Location Right Forearm History Since Last Visit- (Skip if this is Patient's initial visit) Left Footwear Regular Shoe Right Footwear Regular Shoe Pain Scale: 0-10 Numeric Is Patient Pain Free? Yes Lower Extremity Assessment/ Foot Assessment/ Toe Nail Assessment Right -Posterior Tibial Doppler Monophasic -Dorsalis Pedis Doppler Monophasic -Hair Growth on Legs Yes -Hair Growth on Toes No -Temperature of Extremity Warm -Capillary Refill Less than 3 Seconds -Other Deformity No -Prior Foot Ulcer No -Charcot Joint No -Prior Amputation No -Thick No -Discolored No -Deformed No -Improper Length & Hygeine No Left -Posterior Tibial Doppler Monophasic -Dorsalis Pedis Doppler Monophasic -Hair Growth on Legs Yes -Hair Growth on Toes No -Temperature of Extremity Warm -Capillary Refill Less than 3 Seconds -Other Deformity No -Prior Foot Ulcer No -Charcot Joint No -Prior Amputation No -Thick No -Discolored No -Deformed No -Improper Length & Hygeine No Communication Assessment Preferred language Arabic Quality Assurance Monitor Required No Able to Read Yes Able to Write Yes Communication Tools None Right Hearing Abillity Normal Left Hearing Abillity Normal Visual Assistive Devices None Teaching Assessment Preferences Verbal,Written, Audio/Visual, Demonstration Barriers to Learning None Readiness To Learn Excellent Willingness to Engage in Self Management High Activies Readiness to Engage in Self Management High Activities Anxiety Level Calm Cooperation Cooperative Perception Coherent Interest in Health Problem Asks Questions Education Importance Acknowledges Need Does Patient Smoke tobacco or other No substances Smoking Status Never smoker Is Patient Diabetic Yes Functional Assessment Recent Decline in Ability to Perform Denies Any Declines Culture/Judaism/Latin American Studies Director Cultural/Judaism Needs that may affect No Treatment Plan WC - Nurse 1 - General Ulcer Measurement Start: 10/24/22 09:15 Freq: Status: Active Protocol: Activity Type Activity Date Activity User E-sign Co-sign Detail Recorded Client Recorded Date Recorded By Document 10/24/22 09:21 [facility] [id number] 10/24/22 09:34 [facility] 10/24/22 09:21 Wound Center Nurse 1 #1- LLE CIRCUMFERENTIAL -Combined with other wound No -Current Size (cm) - Length 26 -Current Size (cm) - Width 61 -Current Size (cm) - Depth 0.1 -Total Square Cm 1586 -Date of Last Picture (Recall this 10/24/22 field) -Photo Taken Yes -Epithelialization None Present -Tunneling No -Undermining/Tunneling No -Circular Undermining No -Exudate Amt Large -Exudate Type Serous -Wound Margin Distinct, Outline Attached -Granulation Amt None Present (0 %) -Slough/Fibrin Yes -Necrosis Amt Large (67-100%) -Necrotic Tissue Type Adherent Slough -Texture (Rajani-wound Skin Appearance) Assessed, Scarring -Moisture (Rajani-wound Skin Appearance) Assessed -Color (Rajani-wound Skin Appearance) Assessed, Erythema -Temperature (Rajani-wound Skin No Abnormality Appearance) (Pt Warm) -Tenderness on Palpation (Rajani-wound No Skin Appearance) -Ulcer Cleansing Soap and Water -Foul Odor after Cleansing No -Anesthetic Used 4% Lidocaine Solution Lower Limb Edema Present Yes Right Calf (cm) 54 Right Ankle (cm) 36 Left Calf (cm) 61 Left Ankle (cm) 51 - Nurse 2 - General Ulcer CM Notes Start: 10/24/22 09:15 Freq: Status: Active Protocol: Activity Type Activity Date Activity User E-sign Co-sign Detail Recorded Client Recorded Date Recorded By Document 10/24/22 09:47 MW [id number] 10/24/22 10:10 MW 10/24/22 09:47 Wound Center Nurse 2 #1- LLE CIRCUMFERENTIAL -Time 09:49 -Correct Patient Yes -Correct Side, Site, Position Yes -Correct Procedure Yes -Procedure Performed Yes -Type of Procedure Debridement -Clinical Debridement Subcutaneous -Tissue Removed Subcutaneous -Post Debridement (cm) - Length 26.0 -Post Debridement (cm) - Width 61.0 -Post Debridement (cm) - Depth 0.1 -Total Square (Post) (cm) 1586.00 -Area of Debridement (cm) - Length 26.0 -Area of Debridement (cm) - Width 61.0 -Total Square (Area) (cm) 1586.00 -Tunneling No -Undermining/Tunneling No -Circular Undermining No -Wound/Ulcer Outcome Not Healed -Ulcer Cleansing Rinsed/ Irrigated with Saline -Foul Odor after Cleansing No -Bioengineered Tissue No -Bleeding Controlled with Pressure -Treatment Response Procedure Tolerated Well -Offloading No -Debridement - Subq, 1st 20sq cm Yes Pain Scale: 0-10 Numeric Is Patient Pain Free? Yes - Nurse 3 - General Ulcer D/C NN Start: 10/24/22 09:15 Freq: Status: Active Protocol: Activity Type Activity Date Activity User E-sign Co-sign Detail Recorded Client Recorded Date Recorded By Document 10/24/22 10:26 [facility] [id number] 10/24/22 10:30 [facility] 10/24/22 10:26 Wound Care Center Nurse 3 #1- LLE CIRCUMFERENTIAL -Ulcer Cleansing Soap and Water -Foul Odor after Cleansing No -Primary Dressing Applied NonAdherent Contact Layer, Optilok 8x12 -Other Dressing XEROFORM -Primary Dressing Covered/Secured with Dry Gauze & Roll Gauze, Secured with Tape -Other Covering DRSG PER [employer] -Optilok 8x12 4 Left -Compression Wrap Sterling Wrap Treatment Response Procedure Tolerated Well Pain Scale: 0-10 Numeric Is Patient Pain Free? Yes - Visit Discharge Discharge Condition Stable Ambulatory Status Ambulatory Transportation Private Auto Accompanied by AND KIDS Assessment/Plan Assessment/Plan (1) Cellulitis: CODE(S): L03.90 - Cellulitis, unspecified (2) Open wound of left lower leg: CODE(S): S81.802A - Unspecified open wound, left lower leg, initial encounter PLAN: Wash left lower leg with antibacterial soap or Hibiclens daily pat dry apply Xeroform dressing to wound base cover with ABDs and 4 inch and 6 inch Sterling wraps Wound cultures obtained will call with results Follow-up in 1 week for nurse visit (3) Infected wound: CODE(S): T14.8XXA - Other injury of unspecified body region, initial encounter; L08.9 - Local infection of the skin and subcutaneous tissue, unspecified
[2022-11-01 07:49] VITALS: TEMP 35.8; BMI 65.4
== END 2022-11-02 23:59 | disposition home or self-care (01) ==
LOC: WC 09:30
PROVIDERS: PCP Family Medicine; Referring Provider Internal Medicine; Visit Provider Nurse Practitioner
DX: L03.116 Cellulitis of left lower limb (principal); E66.01 Morbid (severe) obesity due to excess calories; Z68.44 Body mass index [BMI] 60.0-69.9, adult; S81.802A Unspecified open wound, left lower leg, initial encounter; A49.1 Streptococcal infection, unspecified site; R60.0 Localized edema; T14.8XXA Other injury of unspecified body region, initial encounter
CPT/HCPCS: 11042; 11045; 87070; 87075; 87077; 87186; 87205; 99213; 99214; G0463

== ENCOUNTER 2022-11-21 09:30 | Outpatient (RCR) | payer MEDICAID, SELFPAY ==
[2022-11-03 02:20] VITALS: BP 164/95; PULSE 81; RESP 18; TEMP 35.8; BMI 65.4
[2022-11-07 09:38] VITALS: BP 151/86; PULSE 91; RESP 18; TEMP 35.5; BMI 65.4
--- NOTE | 2022-11-07 11:37 | PN.PCM_ITS ---
History of Present Illness Date of Service: 11/07/22 Chief Complaint: Follow-up left lower leg cellulitis History of Wound: 37-year-old grossly obese male seen in the hospital around October 18 was admitted for sepsis and cellulitis also had a viral fever of 108. Patient was seen by infectious disease and cultures and found to have a left lower leg strep related infection and was started on vancomycin and Zosyn and then for 3 days and then sent home on cephalexin and doxycycline. Patient improved in the hospital and was discharged 3 days later ended up back in the emergency room because he developed a thick yellow fibrous gelatinous growth over his entire left lower leg. It seeps yellow fluid. Patient already had a appointment with us wound center on Saturday therefore they went to the emergency room and they just suggested following up with the wound center because he did not appear septic. 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 Progress of Wound: The thick white fibrous gelatinous growth is pretty much all gone and I scraped off most of the rest of it with a 15 blade and number 7 mm curette. Patient is very happy with outcomes no open areas at this time we will try wearing an Unna boot this week and have him come back for a nurse visit to see if we can get better control of the redness and swelling. He has had studies done and shows there was some areas on the left leg that were not visualized because of his weight so those could be the problem areas I am referring him to Dr. Braxton vascular doctor for further studies. Subjective Subjective Patient is very pleased with outcome so far Objective Data Objective Data The circumferential area is gone its down to 2 areas front and back small moderately large patches still considered not open but covered with that gelatinous extra skin growth. We will try the Unna boot to see if that cleans up his leg better. Vital Signs: Vital Signs Temp Pulse Resp BP O2 Del Method 95.9 F L 91 18 151/86 H Room Air 11/07/22 09:38 11/07/22 09:38 11/07/22 09:38 11/07/22 09:38 11/07/22 09:38 Oxygen Delivery Method Room Air Weight: 483 lb Body Mass Index (BMI) 65.4 Lab / Micro Data Attestation: I reviewed the patient's lab results. Lab results narrative: Treated for staph infection patient is finishing up his antibiotic therapy Physical Exam Const oriented x3 General Appearance: cooperative Exam Limitations: no limitations Lymph Lymphatic: no lymphadenopathy noted Resp normal respiratory effort Effort and Inspection: able to speak in complete sentences Auscultation: clear to auscultation bilaterally Cardio regular rate and regular rhythm Palpation: normal PMI Rate: regular rate Rhythm: regular rhythm GI Auscultation: normoactive bowel sounds Palpation: soft and no hepatosplenomegaly Extremity General Extremity: normal exam except as noted and edema left (Gelatinous yellow growth over entire circumferential left lower leg) Skin Skin Narrative: Outline of previous infection line no real erythematous foot and leg still edematous. Thick yellow fibrous gelatinous growth over left lower leg with yellow clear drainage no odor Neuro oriented x3 Psych Appearance: grossly normal Speech: normal speech Thought Content: normal thought content Judgement: judgement good Debridement Note Debridement Note Wound debrided: Left lower leg cellulitis and stasis dermatitis Laterality: Left Type of Debridement: Excisional debridement Anesthesia Used: 5% Lidocaine Gel Depth: Down to and including healthy tissue Percentage of wound debrided: 100 Instrument Used: 7mm curette and #15 blade Tissue Removed: Devitalized tissue Severity: Limited To Skin Breakdown Amount of bleeding with debridement: Mild Bleeding Controlled with: Compression and gauze Post-Debridement Measurements and Additional Note: Post-Debridement Measurements/Treatment - Nurse 1 - General Ulcer Assessment Start: 11/07/22 09:37 Freq: Status: Active Protocol: WC.LOWKERENT Activity Type Activity Date Activity User E-sign Co-sign Detail Recorded Client Recorded Date Recorded By Document 11/07/22 09:38 [facility] [id number] 11/07/22 09:47 [facility] 11/07/22 09:38 - Today's Visit Information Type of service Follow-up Visit (Physician/[facility] [employer]PER ) Arrival Mode Ambulatory Transfer Assistance None Patient Identification Verified (Name & Yes ) Patient Requires Transmission-Based No Precautions Height and Weight Body Mass Index (BMI) 65.4 BMI Classification Obese Vital Signs Temperature (97.8 F-99.1 F) 95.9 F L Temperature Source Temporal Pulse Rate (60-100) 91 Pulse Location Monitor Respiratory Rate (12-18) 18 Respiratory rate source Observation Oxygen Delivery Method Room Air Blood Pressure (90/60-120/80) 151/86 H Blood Pressure Mean (mm Hg) 107 Source Monitor Position Sitting Blood Pressure Location Left Forearm History Since Last Visit- (Skip if this is Patient's initial visit) Have you changed medications since your No last visit? Any new allergies or adverse reactions No Had a fall/change in ADL's that may No increase risk of falls Have you been in the hospital since your No last visit? Has dressing in place as prescribed Yes Has compression in place as prescribed Yes Has offloadiing in place as prescribed N/A Experienced any changes in pain level or No management Left Footwear Regular Shoe Right Footwear Regular Shoe Pain Scale: 0-10 Numeric Is Patient Pain Free? Yes - Nurse 1 - General Ulcer Measurement Start: 11/07/22 09:37 Freq: Status: Active Protocol: Activity Type Activity Date Activity User E-sign Co-sign Detail Recorded Client Recorded Date Recorded By Document 11/07/22 09:38 [facility] [id number] 11/07/22 09:47 [facility] 11/07/22 09:38 Wound Center Nurse 1 #1- LLE CIRCUMFERENTIAL -Combined with other wound No -Current Size (cm) - Length 37.5 -Current Size (cm) - Width 16.5 -Current Size (cm) - Depth 0.1 -Total Square Cm 618.75 -Date of Last Picture (Recall this 11/07/22 field) -Photo Taken Yes -Epithelialization Small 1-33% -Tunneling No -Undermining/Tunneling No -Circular Undermining No -Exudate Amt Medium -Exudate Type Serous -Wound Margin Distinct, Outline Attached -Granulation Amt Small (1-33%) -Granulation [place] -Slough/Fibrin Yes -Necrosis Amt Large (67-100%) -Necrotic Tissue Type Adherent Slough -Texture (Rajani-wound Skin Appearance) Assessed, Scarring -Moisture (Rajani-wound Skin Appearance) Assessed, Maceration -Color (Rajani-wound Skin Appearance) Assessed -Temperature (Rajani-wound Skin No Abnormality Appearance) (Pt Warm) -Tenderness on Palpation (Rajani-wound No Skin Appearance) -Ulcer Cleansing Soap and Water -Foul Odor after Cleansing No -Anesthetic Used 4% Lidocaine Solution Lower Limb Edema Present Yes Left Calf (cm) 61.3 Left Ankle (cm) 39.7 WC - Nurse 2 - General Ulcer CM Notes Start: 11/07/22 09:37 Freq: Status: Active Protocol: Activity Type Activity Date Activity User E-sign Co-sign Detail Recorded Client Recorded Date Recorded By Document 11/07/22 09:55 MW [id number] 11/07/22 10:06 MW 11/07/22 09:55 Wound Center Nurse 2 #1- LLE CIRCUMFERENTIAL -Time 09:56 -Correct Patient Yes -Correct Side, Site, Position Yes -Correct Procedure Yes -Procedure Performed No -Wound/Ulcer Outcome Converted #3 Left posterior LE -Time 09:58 -Correct Patient Yes -Correct Side, Site, Position Yes -Correct Procedure Yes -Procedure Performed Yes -Type of Procedure Debridement -Clinical Debridement Subcutaneous -Tissue Removed Subcutaneous -Post Debridement (cm) - Length 13.0 -Post Debridement (cm) - Width 13.0 -Post Debridement (cm) - Depth 0.1 -Total Square (Post) (cm) 169.00 -Area of Debridement (cm) - Length 13.0 -Area of Debridement (cm) - Width 13.0 -Total Square (Area) (cm) 169.00 -Tunneling No -Undermining/Tunneling No -Circular Undermining No -Wound/Ulcer Outcome Not Healed -Ulcer Cleansing Rinsed/ Irrigated with Saline -Foul Odor after Cleansing No -Bioengineered Tissue No -Bleeding Controlled with Pressure -Treatment Response Procedure Tolerated Well -Offloading No -Debridement - Subq, 1st 20sq cm No #2 Left [place] cluster -Time 09:57 -Correct Patient Yes -Correct Side, Site, Position Yes -Correct Procedure Yes -Procedure Performed Yes -Type of Procedure Debridement -Clinical Debridement Subcutaneous -Tissue Removed Subcutaneous -Post Debridement (cm) - Length 15.0 -Post Debridement (cm) - Width 15.0 -Post Debridement (cm) - Depth 0.1 -Total Square (Post) (cm) 225.00 -Area of Debridement (cm) - Length 15.0 -Area of Debridement (cm) - Width 15.0 -Total Square (Area) (cm) 225.00 -Tunneling No -Undermining/Tunneling No -Circular Undermining No -Wound/Ulcer Outcome Not Healed -Bleeding Controlled with Pressure -Treatment Response Procedure Tolerated Well -Offloading No -Debridement - Subq, 1st 20sq cm Yes -Debridement, SubQ, ea addt'l 20sq cm 19 or part thereof Pain Scale: 0-10 Numeric Is Patient Pain Free? Yes WC - Nurse 3 - General Ulcer D/C NN Start: 11/07/22 09:37 Freq: Status: Active Protocol: Activity Type Activity Date Activity User E-sign Co-sign Detail Recorded Client Recorded Date Recorded By Document 11/07/22 10:22 [facility] [id number] 11/07/22 10:23 [facility] 11/07/22 10:22 Wound Care Center Nurse 3 #3 Left posterior LE -Ulcer Cleansing Soap and Water -Foul Odor after Cleansing No -Other Dressing unna boot #2 Left [place] cluster -Ulcer Cleansing Soap and Water -Foul Odor after Cleansing No -Other Dressing unna boot Left -Multi-Layered Wrap Application Unna Boot - Left ($) Treatment Response Procedure Tolerated Well Pain Scale: 0-10 Numeric Is Patient Pain Free? Yes WC - Visit Discharge Discharge Condition Stable Ambulatory Status Ambulatory Transportation Private Auto Assessment/Plan Assessment/Plan (1) Cellulitis: CODE(S): L03.90 - Cellulitis, unspecified (2) Open wound of left lower leg: CODE(S): S81.802A - Unspecified open wound, left lower leg, initial encounter (3) Infected wound: CODE(S): T14.8XXA - Other injury of unspecified body region, initial encounter; L08.9 - Local infection of the skin and subcutaneous tissue, unspecified (4) Stasis dermatitis of lower extremity due to chronic peripheral vascular hypertension: CODE(S): I87.329 - Chronic venous hypertension (idiopathic) with inflammation of unspecified lower extremity PLAN: Refer to Dr. Braxton for further evaluation Apply Unna boot to the left lower leg Patient is to follow-up on Saturday for repeat application or for different dressing change.
[2022-11-09 12:44] VITALS: BP 154/74; PULSE 74; RESP 18; TEMP 36.1
[2022-11-14 09:47] VITALS: BP 171/87; PULSE 77; RESP 18; TEMP 36.1; BMI 65.4
--- NOTE | 2022-11-14 12:17 | PCM.WC.PN ---
History of Present Illness Date of Service: 11/14/22 Chief Complaint: Follow-up left lower leg cellulitis History of Wound: 37-year-old grossly obese male seen in the hospital around October 18 was admitted for sepsis and cellulitis also had a viral fever of 108. Patient was seen by infectious disease and cultures and found to have a left lower leg strep related infection and was started on vancomycin and Zosyn and then for 3 days and then sent home on cephalexin and doxycycline. Patient improved in the hospital and was discharged 3 days later ended up back in the emergency room because he developed a thick yellow fibrous gelatinous growth over his entire left lower leg. It seeps yellow fluid. Patient already had a appointment with us wound center on Saturday therefore they went to the emergency room and they just suggested following up with the wound center because he did not appear septic. 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 Progress of Wound: The thick white fibrous gelatinous growth is pretty much all gone and I scraped off most of the rest of it with a 15 blade and number 7 mm curette. Patient is very happy with outcomes no open areas at this time. Patient has been wearing an Unna boot for 1 week and it looks dramatically better. We will try it again for another week and have him come in on Saturday for recheck patient was compliant with this. He has had studies done and shows there was some areas on the left leg that were not visualized because of his weight so those could be the problem areas I am referring him to Dr. Braxton vascular doctor for further studies. Subjective Subjective Patient tolerated the Unna boot very well Objective Data Objective Data We will reapply the Unna boot for the dried areas anterior and posterior posterior is the worst area for the keratotic skin that he has. No open areas noted skin is just very dark and erythematous but he is trying to use amLactin cream at work and have him start and stop softening the skin. Vital Signs: Vital Signs Temp Pulse Resp BP O2 Del Method 97 F L 77 18 171/87 H Room Air 11/14/22 09:47 11/14/22 09:47 11/14/22 09:47 11/14/22 09:47 11/09/22 12:44 Oxygen Delivery Method Room Air Weight: 483 lb Body Mass Index (BMI) 65.4 Lab / Micro Data Attestation: I reviewed the patient's lab results. Physical Exam Const oriented x3 General Appearance: cooperative Exam Limitations: no limitations Lymph Lymphatic: no lymphadenopathy noted Resp normal respiratory effort Effort and Inspection: able to speak in complete sentences Auscultation: clear to auscultation bilaterally Cardio regular rate and regular rhythm Palpation: normal PMI Rate: regular rate Rhythm: regular rhythm GI Auscultation: normoactive bowel sounds Palpation: soft and no hepatosplenomegaly Extremity General Extremity: normal exam except as noted and edema left (Gelatinous yellow growth over entire circumferential left lower leg) Skin Skin Narrative: Outline of previous infection line no real erythematous foot and leg still edematous. Thick yellow fibrous gelatinous growth over left lower leg with yellow clear drainage no odor Neuro oriented x3 Psych Appearance: grossly normal Speech: normal speech Thought Content: normal thought content Judgement: judgement good Debridement Note Debridement Note Wound debrided: Stasis dermatitis with some chronic peripheral vascular disease dermatitis Type of Debridement: Excisional debridement Anesthesia Used: 5% Lidocaine Gel Depth: Down to and including healthy tissue Percentage of wound debrided: 100 Instrument Used: 7mm curette, #15 blade and Forceps Tissue Removed: Devitalized tissue Severity: Limited To Skin Breakdown Amount of bleeding with debridement: None Bleeding Controlled with: Pressure Post-Debridement Measurements and Additional Note: Post-Debridement Measurements/Treatment - Nurse 1 - General Ulcer Assessment Start: 11/07/22 09:37 Freq: Status: Active Protocol: .LOWEXT Activity Type Activity Date Activity User E-sign Co-sign Detail Recorded Client Recorded Date Recorded By Document 11/07/22 09:38 [facility] [id number] 11/07/22 09:47 [facility] Document 11/14/22 09:47 Desktop 11/14/22 10:01 RB 11/07/22 11/14/22 09:38 09:47 - Today's Visit Information Type of service Follow-up Visit 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 ) ) Arrival Mode Ambulatory Ambulatory Transfer Assistance None None Patient Identification Verified (Name & Yes Yes ) Patient Requires Transmission-Based No Precautions Height and Weight Body Mass Index (BMI) 65.4 65.4 BMI Classification Obese Obese Vital Signs Temperature (97.8 F-99.1 F) 95.9 F L 97 F L Temperature Source Temporal Temporal Pulse Rate (60-100) 91 77 Pulse Location Monitor Monitor Respiratory Rate (12-18) 18 18 Respiratory rate source Observation Observation Oxygen Delivery Method Room Air Blood Pressure (90/60-120/80) 151/86 H 171/87 H Blood Pressure Mean (mm Hg) 107 115 Source Monitor Monitor Position Sitting Semi-Fowlers Blood Pressure Location Left Forearm Left Arm History Since Last Visit- (Skip if this is Patient's initial visit) Have you changed medications since your No No last visit? Any new allergies or adverse reactions No No Had a fall/change in ADL's that may No No increase risk of falls Signs or symptoms of abuse and/or No neglect since last visit Have you been in the hospital since your No No last visit? Has dressing in place as prescribed Yes Yes Has compression in place as prescribed Yes Yes Has offloadiing in place as prescribed N/A No Experienced any changes in pain level or No No management Left Footwear Regular Shoe Right Footwear Regular Shoe Pain Scale: 0-10 Numeric Is Patient Pain Free? Yes Yes WC - Nurse 1 - General Ulcer Measurement Start: 11/07/22 09:37 Freq: Status: Active Protocol: Activity Type Activity Date Activity User E-sign Co-sign Detail Recorded Client Recorded Date Recorded By Document 11/07/22 09:38 [facility] [id number] 11/07/22 09:47 [facility] Document 11/14/22 09:47 Desktop 11/14/22 10:01 RB 11/07/22 11/14/22 09:38 09:47 Wound Center Nurse 1 #1- LLE CIRCUMFERENTIAL -Combined with other wound No -Current Size (cm) - Length 37.5 -Current Size (cm) - Width 16.5 -Current Size (cm) - Depth 0.1 -Total Square Cm 618.75 -Date of Last Picture (Recall this 11/07/22 field) -Photo Taken Yes -Epithelialization Small 1-33% -Tunneling No -Undermining/Tunneling No -Circular Undermining No -Exudate Amt Medium -Exudate Type Serous -Wound Margin Distinct, Outline Attached -Granulation Amt Small (1-33%) -Granulation Quality [place] -Slough/Fibrin Yes -Necrosis Amt Large (67-100%) -Necrotic Tissue Type Adherent Slough -Texture (Rajani-wound Skin Appearance) Assessed, Scarring -Moisture (Rajani-wound Skin Appearance) Assessed, Maceration -Color (Rajani-wound Skin Appearance) Assessed -Temperature (Rajani-wound Skin No Abnormality Appearance) (Pt Warm) -Tenderness on Palpation (Rajani-wound No Skin Appearance) -Ulcer Cleansing Soap and Water -Foul Odor after Cleansing No -Anesthetic Used 4% Lidocaine Solution #3 Left posterior LE -Combined with other wound No -Current Size (cm) - Length 0.1 -Current Size (cm) - Width 0.1 -Current Size (cm) - Depth 0.1 -Total Square Cm 0.01 -Photo Taken Yes -Tunneling No -Undermining/Tunneling No -Circular Undermining No -Exudate Amt Medium -Exudate Type Serosanguineous -Wound Margin Distinct, Outline Attached -Granulation Amt Medium (34-66%) -Granulation Quality [place] -Slough/Fibrin Yes -Necrosis Amt Small (1-33%) -Necrotic Tissue Type Adherent Slough -Structure Exposed N/A -Texture (Rajani-wound Skin Appearance) Assessed -Moisture (Rajani-wound Skin Appearance) Assessed -Color (Rajani-wound Skin Appearance) Assessed, Hemosiderin Staining -Temperature (Rajani-wound Skin No Abnormality Appearance) (Pt Warm) -Tenderness on Palpation (Rajani-wound No Skin Appearance) -Ulcer Cleansing Wound Cleanser -Foul Odor after Cleansing No -Anesthetic Used 5% Lidocaine Gel #2 Left [place] cluster -Combined with other wound No -Current Size (cm) - Length 0.1 -Current Size (cm) - Width 0.1 -Current Size (cm) - Depth 0.1 -Total Square Cm 0.01 -Photo Taken Yes -Tunneling No -Undermining/Tunneling No -Circular Undermining No -Exudate Amt Medium -Exudate Type Serosanguineous -Wound Margin Distinct, Outline Attached -Granulation Amt Medium (34-66%) -Granulation Quality [place] -Slough/Fibrin Yes -Necrosis Amt Medium (34-66%) -Necrotic Tissue Type Adherent Slough -Structure Exposed N/A -Texture (Rajani-wound Skin Appearance) Assessed -Moisture (Rajani-wound Skin Appearance) Assessed -Color (Rajani-wound Skin Appearance) Assessed, Hemosiderin Staining -Temperature (Rajani-wound Skin No Abnormality Appearance) (Pt Warm) -Tenderness on Palpation (Rajani-wound No Skin Appearance) -Ulcer Cleansing Wound Cleanser -Foul Odor after Cleansing No -Anesthetic Used 5% Lidocaine Gel Lower Limb Edema Present Yes Yes Left Calf (cm) 61.3 57.5 Left Ankle (cm) 39.7 38 WC - Nurse 2 - General Ulcer CM Notes Start: 11/07/22 09:37 Freq: Status: Active Protocol: Activity Type Activity Date Activity User E-sign Co-sign Detail Recorded Client Recorded Date Recorded By Document 11/07/22 09:55 MW [id number] 11/07/22 10:06 MW Document 11/14/22 10:11 MW [id number] 11/14/22 10:16 MW 11/07/22 11/14/22 09:55 10:11 Wound Center Nurse 2 #1- LLE CIRCUMFERENTIAL -Time 09:56 -Correct Patient Yes -Correct Side, Site, Position Yes -Correct Procedure Yes -Procedure Performed No -Wound/Ulcer Outcome Converted #3 Left posterior LE -Time 09:58 10:12 -Correct Patient Yes Yes -Correct Side, Site, Position Yes Yes -Correct Procedure Yes Yes -Procedure Performed Yes Yes -Type of Procedure Debridement Debridement -Clinical Debridement Subcutaneous Subcutaneous -Tissue Removed Subcutaneous Subcutaneous -Post Debridement (cm) - Length 13.0 14.0 -Post Debridement (cm) - Width 13.0 13.0 -Post Debridement (cm) - Depth 0.1 0.1 -Total Square (Post) (cm) 169.00 182.00 -Area of Debridement (cm) - Length 13.0 14.0 -Area of Debridement (cm) - Width 13.0 13.0 -Total Square (Area) (cm) 169.00 182.00 -Tunneling No No -Undermining/Tunneling No No -Circular Undermining No No -Wound/Ulcer Outcome Not Healed Not Healed -Ulcer Cleansing Rinsed/ Rinsed/ Irrigated with Irrigated with Saline Saline -Foul Odor after Cleansing No No -Bioengineered Tissue No No -Bleeding Controlled with Pressure Pressure -Treatment Response Procedure Procedure Tolerated Well Tolerated Well -Offloading No No -Debridement - Subq, 1st 20sq cm No No #2 Left [place] cluster -Time 09:57 10:12 -Correct Patient Yes Yes -Correct Side, Site, Position Yes Yes -Correct Procedure Yes Yes -Procedure Performed Yes Yes -Type of Procedure Debridement Debridement -Clinical Debridement Subcutaneous Subcutaneous -Tissue Removed Subcutaneous Subcutaneous -Post Debridement (cm) - Length 15.0 12.0 -Post Debridement (cm) - Width 15.0 10.0 -Post Debridement (cm) - Depth 0.1 0.1 -Total Square (Post) (cm) 225.00 120.00 -Area of Debridement (cm) - Length 15.0 12.0 -Area of Debridement (cm) - Width 15.0 10.0 -Total Square (Area) (cm) 225.00 120.00 -Tunneling No No -Undermining/Tunneling No No -Circular Undermining No No -Wound/Ulcer Outcome Not Healed Not Healed -Ulcer Cleansing Rinsed/ Irrigated with Saline -Foul Odor after Cleansing No -Bioengineered Tissue No -Bleeding Controlled with Pressure Pressure -Treatment Response Procedure Procedure Tolerated Well Tolerated Well -Offloading No No -Debridement - Subq, 1st 20sq cm Yes Yes -Debridement, SubQ, ea addt'l 20sq cm 19 15 or part thereof Pain Scale: 0-10 Numeric Is Patient Pain Free? Yes Yes - Nurse 3 - General Ulcer D/C NN Start: 11/07/22 09:37 Freq: Status: Active Protocol: Activity Type Activity Date Activity User E-sign Co-sign Detail Recorded Client Recorded Date Recorded By Document 11/07/22 10:22 [facility] [id number] 11/07/22 10:23 [facility] Document 11/09/22 12:44 VT [id number] 11/09/22 12:56 [facility] Document 11/14/22 11:24 RB [id number] 11/14/22 11:24 RB 11/07/22 11/09/22 11/14/22 10:22 12:44 11:24 Wound Care Center Nurse 3 #3 Left posterior LE -Ulcer Cleansing Soap and Water Soap and Water -Foul Odor after Cleansing No -Other Dressing unna boot #2 Left [place] cluster -Ulcer Cleansing Soap and Water Soap and Water -Foul Odor after Cleansing No -Other Dressing unna boot Left -Multi-Layered Wrap Application Unna Boot - Unna Boot - Unna Boot - Left ($) Left ($) Left ($) Treatment Response Procedure Procedure Tolerated Well Tolerated Well Vital Signs Temperature (97.8 F-99.1 F) 97 F L Temperature Source Temporal Pulse Rate (60-100) 74 Pulse Location Monitor Respiratory Rate (12-18) 18 Respiratory rate source Observation Oxygen Delivery Method Room Air Blood Pressure (90/60-120/80) 154/74 H Blood Pressure Mean (mm Hg) 100 Source Monitor Position Sitting Blood Pressure Location Left Arm Pain Scale: 0-10 Numeric Is Patient Pain Free? Yes Yes Yes WC - Visit Discharge Discharge Condition Stable Stable Stable Ambulatory Status Ambulatory Ambulatory Ambulatory Transportation Private Auto Private Auto Private Auto Medication Reconcilliation completed & No No provided to patient/care provider Clinical Summary of Care Provided Yes Yes Notes: nurse visist. srikantha ankit left leg. Assessment/Plan Assessment/Plan (1) Cellulitis: CODE(S): L03.90 - Cellulitis, unspecified (2) Open wound of left lower leg: CODE(S): S81.802A - Unspecified open wound, left lower leg, initial encounter (3) Infected wound: CODE(S): T14.8XXA - Other injury of unspecified body region, initial encounter; L08.9 - Local infection of the skin and subcutaneous tissue, unspecified (4) Stasis dermatitis of lower extremity due to chronic peripheral vascular hypertension: CODE(S): I87.329 - Chronic venous hypertension (idiopathic) with inflammation of unspecified lower extremity PLAN: Refer to Dr. Braxton for further evaluation Apply Unna boot to the left lower leg Patient is to follow-up on Saturday for repeat application or for different dressing change.
[2022-11-21 09:48] VITALS: RESP 16; BMI 65.4
--- NOTE | 2022-11-21 11:03 | PN.PCM_ITS ---
History of Present Illness Date of Service: 11/21/22 Chief Complaint: Follow-up left lower leg cellulitis History of Wound: 37-year-old grossly obese male seen in the hospital around October 18 was admitted for sepsis and cellulitis also had a viral fever of 108. Patient was seen by infectious disease and cultures and found to have a left lower leg strep related infection and was started on vancomycin and Zosyn and then for 3 days and then sent home on cephalexin and doxycycline. Patient improved in the hospital and was discharged 3 days later ended up back in the emergency room because he developed a thick yellow fibrous gelatinous growth over his entire left lower leg. It seeps yellow fluid. Patient already had a appointment with us wound center on Saturday therefore they went to the emergency room and they just suggested following up with the wound center because he did not appear septic. 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 Progress of Wound: Took the Unna boot off today and the wounds are healed just has excessive dry skin that he can use amLactin cream on patient will be discharged from the wound center. Subjective Subjective Patient is pleased with outcomes Objective Data Objective Data Still an outline of where the cellulitis was resolved skin and dried just needs amLactin cream to soften up the skin Vital Signs: Vital Signs Temp Pulse Resp BP O2 Del Method 97 F L 77 16 171/87 H Room Air 11/14/22 09:47 11/14/22 09:47 11/21/22 09:48 11/14/22 09:47 11/21/22 09:48 Oxygen Delivery Method Room Air Weight: 483 lb Body Mass Index (BMI) 65.4 Lab / Micro Data Attestation: I reviewed the patient's lab results. Physical Exam Const oriented x3 General Appearance: cooperative Exam Limitations: no limitations Lymph Lymphatic: no lymphadenopathy noted Resp normal respiratory effort Effort and Inspection: able to speak in complete sentences Auscultation: clear to auscultation bilaterally Cardio regular rate and regular rhythm Palpation: normal PMI Rate: regular rate Rhythm: regular rhythm GI Auscultation: normoactive bowel sounds Palpation: soft and no hepatosplenomegaly Extremity General Extremity: normal exam except as noted and edema left (Gelatinous yellow growth over entire circumferential left lower leg) Skin Skin Narrative: Outline of previous infection line no real erythematous foot and leg still edematous. Thick yellow fibrous gelatinous growth over left lower leg with yellow clear drainage no odor Neuro oriented x3 Psych Appearance: grossly normal Speech: normal speech Thought Content: normal thought content Judgement: judgement good Debridement Note Debridement Note No debridement was completed: No debridement was completed today Post-Debridement Measurements and Additional Note: Post-Debridement Measurements/Treatment - Nurse 1 - General Ulcer Assessment Start: 11/07/22 09:37 Freq: Status: Active Protocol: ORLIN Activity Type Activity Date Activity User E-sign Co-sign Detail Recorded Client Recorded Date Recorded By Document 11/07/22 09:38 [facility] [id number] 11/07/22 09:47 BM Document 11/14/22 09:47 RB Desktop 11/14/22 10:01 RB Document 11/21/22 09:48 [facility] [id number] 11/21/22 09:53 BM 11/07/22 11/14/22 11/21/22 09:38 09:47 09:48 - Today's Visit Information Type of service Follow-up Visit Follow-up Visit Follow-up Visit (Physician/AVIONICS REPAIR TECHNICIAN (Physician/AVIONICS REPAIR TECHNICIAN (Physician/AVIONICS REPAIR TECHNICIAN ) ) ) Arrival Mode Ambulatory Ambulatory Ambulatory Transfer Assistance None None None Patient Identification Verified (Name & Yes Yes Yes ) Patient Requires Transmission-Based No No Precautions Height and Weight Body Mass Index (BMI) 65.4 65.4 65.4 BMI Classification Obese Obese Obese Vital Signs Temperature (97.8 F-99.1 F) 95.9 F L 97 F L Temperature Source Temporal Temporal Temporal Pulse Rate (60-100) 91 77 Pulse Location Monitor Monitor Monitor Respiratory Rate (12-18) 18 18 16 Respiratory rate source Observation Observation Observation Oxygen Delivery Method Room Air Room Air Blood Pressure (90/60-120/80) 151/86 H 171/87 H Blood Pressure Mean (mm Hg) 107 115 Source Monitor Monitor Monitor Position Sitting Semi-Fowlers Sitting Blood Pressure Location Left Forearm Left Arm Left Arm History Since Last Visit- (Skip if this is Patient's initial visit) Have you changed medications since your No No No last visit? Any new allergies or adverse reactions No No No Had a fall/change in ADL's that may No No increase risk of falls Signs or symptoms of abuse and/or No No neglect since last visit Have you been in the hospital since your No No No last visit? Has dressing in place as prescribed Yes Yes No Has compression in place as prescribed Yes Yes No Has offloadiing in place as prescribed N/A No N/A Experienced any changes in pain level or No No No management Left Footwear Regular Shoe Regular Shoe Right Footwear Regular Shoe Regular Shoe Pain Scale: 0-10 Numeric Is Patient Pain Free? Yes Yes Yes WC - Nurse 1 - General Ulcer Measurement Start: 11/07/22 09:37 Freq: Status: Active Protocol: Activity Type Activity Date Activity User E-sign Co-sign Detail Recorded Client Recorded Date Recorded By Document 11/07/22 09:38 [facility] [id number] 11/07/22 09:47 BM Document 11/14/22 09:47 RB Desktop 11/14/22 10:01 RB Document 11/21/22 09:48 [facility] [id number] 11/21/22 09:53 BM 11/07/22 11/14/22 11/21/22 09:38 09:47 09:48 Wound Center Nurse 1 #3 Left posterior LE -Combined with other wound No No -Current Size (cm) - Length 0.1 0.1 -Current Size (cm) - Width 0.1 0.1 -Current Size (cm) - Depth 0.1 0.1 -Total Square Cm 0.01 0.01 -Date of Last Picture (Recall this 11/21/22 field) -Photo Taken Yes Yes -Epithelialization Large 67-100% -Tunneling No -Undermining/Tunneling No -Circular Undermining No -Exudate Amt Medium -Exudate Type Serosanguineous -Wound Margin Distinct, Outline Attached -Granulation Amt Medium (34-66%) -Granulation Quality [place] -Slough/Fibrin Yes -Necrosis Amt Small (1-33%) -Necrotic Tissue Type Adherent Slough -Structure Exposed N/A -Texture (Rajani-wound Skin Appearance) Assessed Assessed, Scarring -Moisture (Rajani-wound Skin Appearance) Assessed Assessed,Dry/ Scaly -Color (Rajani-wound Skin Appearance) Assessed, Assessed, Hemosiderin Hemosiderin Staining Staining -Temperature (Rajani-wound Skin No Abnormality No Abnormality Appearance) (Pt Warm) (Pt Warm) -Tenderness on Palpation (Rajani-wound No No Skin Appearance) -Ulcer Cleansing Wound Cleanser -Foul Odor after Cleansing No -Anesthetic Used 5% Lidocaine Gel #2 Left [place] cluster -Combined with other wound No No -Current Size (cm) - Length 0.1 0.1 -Current Size (cm) - Width 0.1 0.1 -Current Size (cm) - Depth 0.1 0.1 -Total Square Cm 0.01 0.01 -Date of Last Picture (Recall this 11/21/22 field) -Photo Taken Yes Yes -Tunneling No No -Undermining/Tunneling No No -Circular Undermining No No -Exudate Amt Medium -Exudate Type Serosanguineous -Wound Margin Distinct, Outline Attached -Granulation Amt Medium (34-66%) -Granulation Quality [place] -Slough/Fibrin Yes -Necrosis Amt Medium (34-66%) -Necrotic Tissue Type Adherent Slough -Structure Exposed N/A -Texture (Rajani-wound Skin Appearance) Assessed Assessed, Scarring -Moisture (Rajani-wound Skin Appearance) Assessed Assessed,Dry/ Scaly -Color (Rajani-wound Skin Appearance) Assessed, Assessed, Hemosiderin Hemosiderin Staining Staining -Temperature (Rajani-wound Skin No Abnormality No Abnormality Appearance) (Pt Warm) (Pt Warm) -Tenderness on Palpation (Rajani-wound No No Skin Appearance) -Ulcer Cleansing Wound Cleanser -Foul Odor after Cleansing No -Anesthetic Used 5% Lidocaine Gel #1- LLE CIRCUMFERENTIAL -Combined with other wound No -Current Size (cm) - Length 37.5 -Current Size (cm) - Width 16.5 -Current Size (cm) - Depth 0.1 -Total Square Cm 618.75 -Date of Last Picture (Recall this 11/07/22 field) -Photo Taken Yes -Epithelialization Small 1-33% -Tunneling No -Undermining/Tunneling No -Circular Undermining No -Exudate Amt Medium -Exudate Type Serous -Wound Margin Distinct, Outline Attached -Granulation Amt Small (1-33%) -Granulation Quality [place] -Slough/Fibrin Yes -Necrosis Amt Large (67-100%) -Necrotic Tissue Type Adherent Slough -Texture (Rajani-wound Skin Appearance) Assessed, Scarring -Moisture (Rajani-wound Skin Appearance) Assessed, Maceration -Color (Rajani-wound Skin Appearance) Assessed -Temperature (Rajani-wound Skin No Abnormality Appearance) (Pt Warm) -Tenderness on Palpation (Rajani-wound No Skin Appearance) -Ulcer Cleansing Soap and Water -Foul Odor after Cleansing No -Anesthetic Used 4% Lidocaine Solution Lower Limb Edema Present Yes Yes Yes Left Calf (cm) 61.3 57.5 60 Left Ankle (cm) 39.7 38 37.9 WC - Nurse 2 - General Ulcer CM Notes Start: 11/07/22 09:37 Freq: Status: Active Protocol: Activity Type Activity Date Activity User E-sign Co-sign Detail Recorded Client Recorded Date Recorded By Document 11/07/22 09:55 MW [id number] 11/07/22 10:06 MW Document 11/14/22 10:11 MW [id number] 11/14/22 10:16 MW Document 11/21/22 10:09 MW [id number] 11/21/22 10:11 MW 11/07/22 11/14/22 11/21/22 09:55 10:11 10:09 Wound Center Nurse 2 #3 Left posterior LE -Time 09:58 10:12 10:10 -Correct Patient Yes Yes Yes -Correct Side, Site, Position Yes Yes Yes -Correct Procedure Yes Yes Yes -Procedure Performed Yes Yes No -Type of Procedure Debridement Debridement -Clinical Debridement Subcutaneous Subcutaneous -Tissue Removed Subcutaneous Subcutaneous -Post Debridement (cm) - Length 13.0 14.0 -Post Debridement (cm) - Width 13.0 13.0 -Post Debridement (cm) - Depth 0.1 0.1 -Total Square (Post) (cm) 169.00 182.00 -Area of Debridement (cm) - Length 13.0 14.0 -Area of Debridement (cm) - Width 13.0 13.0 -Total Square (Area) (cm) 169.00 182.00 -Tunneling No No -Undermining/Tunneling No No -Circular Undermining No No -Wound/Ulcer Outcome Not Healed Not Healed Healed- Epithelialized -Ulcer Cleansing Rinsed/ Rinsed/ Irrigated with Irrigated with Saline Saline -Foul Odor after Cleansing No No -Bioengineered Tissue No No -Bleeding Controlled with Pressure Pressure -Treatment Response Procedure Procedure Tolerated Well Tolerated Well -Offloading No No -Debridement - Subq, 1st 20sq cm No No #2 Left Medrano cluster -Time 09:57 10:12 10:10 -Correct Patient Yes Yes Yes -Correct Side, Site, Position Yes Yes Yes -Correct Procedure Yes Yes Yes -Procedure Performed Yes Yes No -Type of Procedure Debridement Debridement -Clinical Debridement Subcutaneous Subcutaneous -Tissue Removed Subcutaneous Subcutaneous -Post Debridement (cm) - Length 15.0 12.0 0 -Post Debridement (cm) - Width 15.0 10.0 0 -Post Debridement (cm) - Depth 0.1 0.1 0 -Total Square (Post) (cm) 225.00 120.00 0 -Area of Debridement (cm) - Length 15.0 12.0 -Area of Debridement (cm) - Width 15.0 10.0 -Total Square (Area) (cm) 225.00 120.00 -Tunneling No No -Undermining/Tunneling No No -Circular Undermining No No -Wound/Ulcer Outcome Not Healed Not Healed Healed- Epithelialized -Ulcer Cleansing Rinsed/ Irrigated with Saline -Foul Odor after Cleansing No -Bioengineered Tissue No -Bleeding Controlled with Pressure Pressure -Treatment Response Procedure Procedure Tolerated Well Tolerated Well -Offloading No No -Debridement - Subq, 1st 20sq cm Yes Yes -Debridement, SubQ, ea addt'l 20sq cm 19 15 or part thereof #1- LLE CIRCUMFERENTIAL -Time 09:56 -Correct Patient Yes -Correct Side, Site, Position Yes -Correct Procedure Yes -Procedure Performed No -Wound/Ulcer Outcome Converted Pain Scale: 0-10 Numeric Is Patient Pain Free? Yes Yes Yes WC - Nurse 3 - General Ulcer D/C NN Start: 11/07/22 09:37 Freq: Status: Active Protocol: Activity Type Activity Date Activity User E-sign Co-sign Detail Recorded Client Recorded Date Recorded By Document 11/07/22 10:22 [facility] [id number] 11/07/22 10:23 BM Document 11/09/22 12:44 MT [id number] 11/09/22 12:56 OK Document 11/14/22 11:24 RB [id number] 11/14/22 11:24 RB Document 11/21/22 10:14 MW [id number] 11/21/22 10:16 MW Document 11/21/22 10:18 [facility] [id number] 11/21/22 10:19 [facility] 11/07/22 11/09/22 11/14/22 10:22 12:44 11:24 Wound Care Center Nurse 3 #3 Left posterior LE -Ulcer Cleansing Soap and Water Soap and Water -Foul Odor after Cleansing No -Other Dressing unna boot #2 Left [place] cluster -Ulcer Cleansing Soap and Water Soap and Water -Foul Odor after Cleansing No -Other Dressing unna boot Left -Lotion applied to leg before compression wrap -Multi-Layered Wrap Application Unna Boot - Unna Boot - Unna Boot - Left ($) Left ($) Left ($) -Compression Wrap -Tubular Bandage -Size of Tubigrip Used -Size F ($) -Other Treatment Response Procedure Procedure Tolerated Well Tolerated Well Vital Signs Temperature (97.8 F-99.1 F) 97 F L Temperature Source Temporal Pulse Rate (60-100) 74 Pulse Location Monitor Respiratory Rate (12-18) 18 Respiratory rate source Observation Oxygen Delivery Method Room Air Blood Pressure (90/60-120/80) 154/74 H Blood Pressure Mean (mm Hg) 100 Source Monitor Position Sitting Blood Pressure Location Left Arm Pain Scale: 0-10 Numeric Is Patient Pain Free? Yes Yes Yes Teaching: Wound Center Compression Wraps & Stockings -Person Taught -Teaching Method -Response to teaching WC - Visit Discharge Discharge Condition Stable Stable Stable Ambulatory Status Ambulatory Ambulatory Ambulatory Transportation Private Auto Private Auto Private Auto Accompanied by Medication Reconcilliation completed & No No provided to patient/care provider Clinical Summary of Care Provided Yes Yes Notes: nurse alexandra. blas pham left leg. 11/21/22 11/21/22 10:14 10:18 Wound Care Center Nurse 3 #3 Left posterior LE -Ulcer Cleansing -Foul Odor after Cleansing -Other Dressing #2 Left [place] cluster -Ulcer Cleansing -Foul Odor after Cleansing -Other Dressing Left -Lotion applied to leg before Yes compression wrap -Multi-Layered Wrap Application -Compression Wrap Sterling Wrap Sterling Wrap -Tubular Bandage Single Layer Single Layer -Size of Tubigrip Used Size F Size F -Size F ($) 2 2 -Other SENT ACES W/ PT AND XTRA TUBI Treatment Response Procedure Procedure Tolerated Well Tolerated Well Vital Signs Temperature (97.8 F-99.1 F) Temperature Source Pulse Rate (60-100) Pulse Location Respiratory Rate (12-18) Respiratory rate source Oxygen Delivery Method Blood Pressure (90/60-120/80) Blood Pressure Mean (mm Hg) Source Position Blood Pressure Location Pain Scale: 0-10 Numeric Is Patient Pain Free? Yes Yes Teaching: Wound Center Compression Wraps & Stockings -Person Taught Patient,Family -Teaching Method Discussion, Demonstration -Response to teaching Verbalize understanding WC - Visit Discharge Discharge Condition Stable Stable Ambulatory Status Cane Cane Transportation Private Auto Private Auto Accompanied by AND 2 KIDS Medication Reconcilliation completed & No provided to patient/care provider Clinical Summary of Care Provided Yes Notes: Assessment/Plan Assessment/Plan (1) Cellulitis: CODE(S): L03.90 - Cellulitis, unspecified (2) Open wound of left lower leg: CODE(S): S81.802A - Unspecified open wound, left lower leg, initial encounter (3) Infected wound: CODE(S): T14.8XXA - Other injury of unspecified body region, initial encounter; L08.9 - Local infection of the skin and subcutaneous tissue, unspecified (4) Stasis dermatitis of lower extremity due to chronic peripheral vascular hypertension: CODE(S): I87.329 - Chronic venous hypertension (idiopathic) with inf lammation of unspecified lower extremity PLAN: Refer to Dr. Braxton for further evaluation Apply amLactin cream to left lower leg on all the dried areas once or twice a day. Discharge from the wound center and follow-up as needed
== END 2022-12-02 23:59 | disposition home or self-care (01) ==
LOC: WC 09:30
PROVIDERS: PCP Family Medicine; Referring Provider Internal Medicine; Visit Provider Nurse Practitioner
DX: L03.116 Cellulitis of left lower limb (principal); S81.802A Unspecified open wound, left lower leg, initial encounter; T14.8XXA Other injury of unspecified body region, initial encounter; I87.329 Chronic venous hypertension (idiopathic) with inflammation of unspecified lower extremity
CPT/HCPCS: 11042; 11045; 29580; 99213; G0463

== ENCOUNTER → 2022-12-07 | Outpatient (CLI) | payer MEDICAID, SELFPAY ==
--- NOTE | 2022-12-07 10:48 | VDLE_ITS ---
Reason For Study: LEG SWELLING RIGHT LEFT CFV is compressible, spontaneous, phasic, CFV is compressible, spontaneous, phasic, competent and demonstrates normal competent, and demonstrates normal augmentation. augmentation. FV is compressible, spontaneous, phasic, FV is compressible, spontaneous, phasic, competent and demonstrates normal competent and demonstrates normal augmentation. augmentation. POP V is compressible, spontaneous, phasic, POP V is compressible, spontaneous, phasic, competent and demonstrates normal competent and demonstrates normal augmentation. augmentation. T/P Trunk is compressible. T/P Trunk is compressible. PTV is compressible. PTV is compressible. RT PerV is compressible. LT PerV is compressible. SFJ is competent and measures 0.59 x 0.59 cm. SFJ is INCOMPETENT and measures 0.89 x 0.84 GSV proximal thigh measures 0.76 x 0.81 cm. cm. GSV above knee is competent. GSV proximal thigh measures 0.72 x 0.72 cm. GSV at knee measures 0.54 x 0.58 cm. GSV at knee measures 0.60 x 0.63 cm. GSV below knee is INCOMPETENT for greater GSV is competent throughout. than 0.5 seconds. SSV proximal calf is competent and measures SSV proximal calf is competent and measures 0.39 x 0.36 cm. 0.24 x 0.26 cm. Procedure Exam performed in department. The exam was diagnostic. The study was technically difficult due to body habitus. VL/Venous Duplex US - William Extrem Interpretation Summary Deep veins of the right lower extremity are patent and compressible segmentally . There is no evidence of right lower extremity deep vein thrombosis. The right great sapheno us vein appears patent and compressible segmentally. Deep veins of the bilateral lower extremit ies are patent and compressible segmentally. There is no evidence of bilateral lower extremity walker p vein thrombosis. The bilateral great saphenous veins appear patent and compressible segmentally. Positive for reflux in the right great saphenous vein below the knee Positive for reflux in the left saphenofemoral junction. Ordering Physician: Citlaly Sims Referring Physician: Citlaly Sims Performed By: Malcolm Cook RVT
== END | disposition home or self-care (01) ==
LOC: CVS 10:47
PROVIDERS: PCP Family Medicine; Referring Provider Physician Assistant; Visit Provider Physician Assistant
DX: I87.329 Chronic venous hypertension (idiopathic) with inflammation of unspecified lower extremity (principal); M79.89 Other specified soft tissue disorders
CPT/HCPCS: 93970

== ENCOUNTER 2024-08-17 16:45 | Emergency (ER) | payer BC, MEDICAID, SELFPAY ==
[2024-08-17 16:45] VITALS: BP 162/98; PULSE 88; RESP 20; TEMP 36.2; O2SAT 98
--- NOTE | 2024-08-17 18:04 | EX.ED.DYSGE1 ---
HPI History of Present Illness Chief Complaint: Hyperglycemia Narrative Narrative: 39-year-old male past medical history of prediabetes, on metformin, presents from his primary care provider's office because of elevated blood sugars in the 500s. He states at least for the last week and a half if not longer he has had symptoms of occasional blurry vision, urinary frequency, and he developed a fungal infection in his groin. He was at his primary care provider's office and with all the symptoms they checked his sugar and it was elevated. He denies any fevers or chills, no cough, no nausea or vomiting, no other symptoms except for fatigue and malaise. He may have polydipsia as well. [facility] Medical History (Updated 08/17/24 @ 21:57 by Landon Hernandez MD) Pre-diabetes Morbid obesity Tobacco abuse Newly diagnosed diabetes Home Medications ?Medication ?Instructions ?Recorded ?Last Taken ?Type sildenafil 100 mg tablet (Viagra) 100 mg PO DAILY PRN 11/29/22 Unknown History glipizide 5 mg tablet 5 mg PO BID #14 tabs 08/17/24 Unknown Rx Allergy/AdvReac Type Severity Reaction Status Date / Time No Known Allergies Allergy Verified 11/29/22 13:05 Social History Smoking Status: Never smoker ROS ROS ED ROS Narrative Constitutional: No fever, no chills. Positive malaise and fatigue. HEENT: No sore throat. No neck pain. No loss of vision. No rhinorrhea. Cardiovascular: No chest pain. No palpitations. No pedal edema. Respiratory: No cough, no shortness of breath. Abdominal: No abdominal pain. No nausea. No vomiting. Genitourinary: No dysuria. No hematuria. Positive urinary frequency. Musculoskeletal: No myalgias. No arthralgias. Neurologic: No headaches. No dizziness. No lightheadedness. Skin: Fungal infection of groin no change in color. EXAM Physical Exam Narrative Exam Narrative: Afebrile. Vital signs noted. Nontoxic-appearing. Cardiovascular examination reveals a regular rate and rhythm. Lungs are clear to auscultation bilaterally. Abdomen is soft and nontender, and obese with positive bowel sounds. Neurological examination nonfocal, nonlateralizing. Const Vital Signs: 08/17/24 16:45 08/17/24 18:35 08/17/24 18:45 Temperature 97.2 F L Temperature Source Temporal Pulse Rate 88 86 Respiratory Rate 20 H 24 H Respiratory Effort Normal Respiratory Pattern Normal Blood Pressure 162/98 H 139/103 H Blood Pressure Mean 119 115 Pulse Ox 98 96 Oxygen Delivery Method Room Air Room Air 08/17/24 20:00 Temperature Temperature Source Pulse Rate 78 Respiratory Rate 15 Respiratory Effort Respiratory Pattern Blood Pressure 147/88 H Blood Pressure Mean 107 Pulse Ox 96 Oxygen Delivery Method Room Air MDM MDM MDM Narrative Medical decision making narrative: Differential diagnosis includes but not limited to diabetic ketoacidosis versus hyperglycemia with new onset diabetes. I reviewed his laboratory work and he has normal white count of 10.1 with hemoglobin 14.4, hematocrit 43.6 and platelet count 237. Sodium slightly low at 134 which may be secondary to his elevated glucose of 424. Although his serum acetone level is small, he has a normal anion gap of 8 so I do not think he is in diabetic ketoacidosis. AST is low at 11 which I think is nonspecific. Patient was bolused normal saline 1 L intravenously. He was given a second liter and his blood sugar was checked and it is 369. I ordered 6 units of insulin subcutaneously. In discussion with the patient, through shared decision making, he prefers outpatient treatment. I was able to discuss the patient with Dr. Archibald on-call for Dr. Colvin. As the patient is not tolerating his metformin secondary to GI upset, she suggested glipizide 5 mg twice daily. I wrote him a prescription to take for the next week and told him that further medication should come from his primary care provider. He is to follow-up in the next 2 to 3 days with his primary care provider. I also warned him of the risk of hypoglycemia with the use of glipizide, and he states he has a glucometer at home. He was told that if he is taking his second dose before bed, that he should check his blood sugar indefinitely eat a snack prior to falling asleep. I feel he can be discharged safely home with follow-up. Return instructions to the emergency department were reviewed. Disposition is discharged home in stable condition. History & Record Review Discussion w/independent historian: Patient Lab Data Attestation: I reviewed the patient's lab results. Labs: Laboratory Results - last 24 hr 0108/17/24 08/17/24 18:10 18:24 20:02 WBC 10.1 RBC 5.05 Hgb 14.4 Hct 43.6 MCV 86.3 MCH 28.5 MCHC 33.0 RDW Std Deviation 43.2 RDW Coeff of David 13.8 Plt Count 237 MPV 11.9 Immature Gran % (Auto) 0.500 Neut % (Auto) 64.1 Lymph % (Auto) 29.0 [place] % (Auto) 5.7 Eos % (Auto) 0.5 Baso % (Auto) 0.2 Absolute Neuts (auto) 6.5 Absolute Lymphs (auto) 2.91 Nucleated RBC % 0 Sodium 134 L Potassium 4.0 Chloride 101 Carbon Dioxide 25.0 Anion Gap 8 BUN 12 Creatinine 0.86 Estim Creat Clear Calc 215.52 Est GFR (MDRD) Af Amer 125 Est GFR (MDRD) Non-Af 104 BUN/Creatinine Ratio 13.9 Glucose 424 H Calcium 9.1 Total Bilirubin 0.40 AST 11 L ALT 32 Alkaline Phosphatase 149 H Total Protein 7.6 Albumin 3.6 Globulin 4.0 Albumin/Globulin Ratio 0.9 Urine Color Yellow Urine Clarity Clear Urine pH 6.0 Ur Specific [place] 1.010 Urine Protein Negative Urine Glucose (UA) 1000 H Urine Ketones 15 H Urine Occult Blood 10 H Urine Nitrite Negative Urine Bilirubin Negative Urine Urobilinogen Normal Ur Leukocyte Esterase 25 H Urine RBC 0-5 SEEN Urine WBC 5-10 SEEN Ur Squamous Epith Cells 5-10 SEEN Urine Bacteria 0 SEEN Urine Mucus 0 SEEN Urine Yeast RARE Acetone Level SMALL H POC Glucose 435 H 381 H 08/17/24 21:18 WBC RBC Hgb Hct MCV MCH MCHC RDW Std Deviation RDW Coeff of David Plt Count MPV Immature Gran % (Auto) Neut % (Auto) Lymph % (Auto) [place] % (Auto) Eos % (Auto) Baso % (Auto) Absolute Neuts (auto) Absolute Lymphs (auto) Nucleated RBC % Sodium Potassium Chloride Carbon Dioxide Anion Gap BUN Creatinine Estim Creat Clear Calc Est GFR (MDRD) Af Amer Est GFR (MDRD) Non-Af BUN/Creatinine Ratio Glucose Calcium Total Bilirubin AST ALT Alkaline Phosphatase Total Protein Albumin Globulin Albumin/Globulin Ratio Urine Color Urine Clarity Urine pH Ur Specific [place] Urine Protein Urine Glucose (UA) Urine Ketones Urine Occult Blood Urine Nitrite Urine Bilirubin Urine Urobilinogen Ur Leukocyte Esterase Urine RBC Urine WBC Ur Squamous Epith Cells Urine Bacteria Urine Mucus Urine Yeast Acetone Level POC Glucose 369 H Management Discussion w/another healthcare provider: PCP Discharge Plan Triage Chief Complaint: Hyperglycemia ED Provider: Landon Hernandez Dx/Rx/DC Orders Clinical Impression: Hyperglycemia, Diabetes mellitus, new onset Instructions: ED Hyperglycemia New Poss Diabetes Prescriptions: New glipizide 5 mg tablet 5 mg PO BID Qty: 14 0RF Primary Care Provider: Kelvin Colvin Referrals: Kelvin Colvin MD [Primary Care Provider] - 2 Days Activity Restrictions/Additional Instructions: It is important for you to follow-up with your primary care provider for diabetic teaching in the next 2 to 3 days. Take the glipizide 5 mg twice a day. Make sure you check your blood sugar before taking the glipizide and make sure you eat afterwards, especially at night. You have been given a prescription for glipizide for 1 week, you should follow-up with your primary care provider in case they need to change her medication or for extended medications to control your diabetes. Print Language: Latvian Disposition Disposition: Home, Self Care
[2024-08-17 18:44] LABS: Absolute Lymphocyte Count 2.91 X10^3/uL (0.83-4.51); Absolute Neutrophil Count 6.5 X10^3/uL (2.0-7.7); Bacteria 0 SEEN /hpf (None Seen); Basophil# 0.02 X10^3/uL; Basophil% 0.2 % (0-1); Eosinophil# 0.05 X10^3/uL; Eosinophils% 0.5 % (0-5); Hematocrit 43.6 % (40-54); Hemoglobin 14.4 g/dL (13.0-16.5); Lymphocyte # 2.91 X10^3/ul (0.83-4.51); Mean Corpuscular Hgb 28.5 pg (27.0-32.0); Mean Corpuscular Volume 86.3 fL (80-94); Mean Platelet Vol. 11.9 fl (6.2-12.0); Monocyte# 0.57 X10^3/uL; Monocyte% 5.7 % (0-10); Mucous, Urine 0 SEEN /hpf (<or=2+); NRBC Flagged by Analyzer 0 % (0-5); Neutrophil # 6.45 X10^3/uL (2.7-7.7); Neutrophil % 64.1 % (47-70); Platelet Count 237 K/mm3 (150-450); RBC Distribution Width CV 13.8 % (11.6-14.6); RBC Distribution Width SD 43.2 fl (35.1-43.9); Red Blood Count 5.05 M/mm3 (4.6-6.2); White Blood Count 10.1 K/mm3 (4.4-11.0)
[2024-08-17 18:45] VITALS: BP 139/103; PULSE 86; RESP 24; O2SAT 96
[2024-08-17 18:46] VITALS: BMI 65.9
[2024-08-17] MEDS: 0.9% Normal Saline (1000mL) 1,000 ML 999 ML IV ×2 (18:46→19:59)
[2024-08-17 18:47] LABS: Bedside Glucose 435 mg/dL (74-106)
[2024-08-17 18:51] LABS: Color, Urine Yellow (Yellow); Glucose, Dipstick 1000 mg/dl (Normal); Ketone-Dipstick 15 mg/dl (Negative); Leukocyte Esterase-Dipstick 25 /ul (Negative); Nitrite-Dipstick Negative (Negative); Occult Blood-Urine 10 /ul (Negative); Protein-Dipstick Negative (Negative); Urine Bilirubin Dipstick Negative (Negative); Urine Clarity Clear (Clear); Urine Urobilinogen Normal (Normal)
--- NOTE | 2024-08-17 19:08 | ED.RN ---
Critical Lab - Acetone small positive. Dr. Hernandez notified.
[2024-08-17 19:10] LABS: ALB/GLOB Ratio 0.9 RATIO (0.9-2.4); AST(SGOT) 11 U/L (15-37); Alanine Aminotransfer ALT/SGPT 32 U/L (16-61); Albumin, Serum 3.6 g/dL (3.2-5.0); Alkaline Phosphatase 149 U/L (45-117); Anion Gap 8 (5-15); BUN 12 mg/dL (7-18); BUN/Creat Ratio 13.9 RATIO (10-20); Calcium,Total 9.1 mg/dL (8.5-10.1); Chloride 101 mmol/L (98-107); Creatinine, Serum 0.86 mg/dL (0.70-1.30); EST Glomerular Filtration Rate 104 mL/min (>60); Est Glom Filt Rate - Afr Amer 125 mL/min (>60); Estimated Creatinine Clearance 215.52 ml/min; Glucose 424 mg/dL (74-106); Protein, Total 7.6 g/dL (6.4-8.2); Sodium Level 134 mmol/L (136-145)
[2024-08-17 19:45] LABS: Red Blood Cells-Urine 0-5 SEEN /hpf (0-5); Squamous Epithelial Cells - UA 5-10 SEEN /hpf (0-5); White Blood Cells 5-10 SEEN /hpf (0-5)
[2024-08-17 19:46] LABS: Yeast-Urine RARE /hpf (None Seen)
[2024-08-17 20:00] VITALS: BP 147/88; PULSE 78; RESP 15; O2SAT 96
[2024-08-17 20:21] LABS: Bedside Glucose 381 mg/dL (74-106)
[2024-08-17] MEDS: Insulin Lispro 100 UNIT/ML INSULN.PEN 6 UNIT SC (21:18)
[2024-08-17 21:44] LABS: Bedside Glucose 369 mg/dL (74-106)
[2024-08-17 22:00] VITALS: BP 147/94; PULSE 79; RESP 18; TEMP 36.6; O2SAT 97
[2024-08-17 22:48] LABS: Bedside Glucose 329 mg/dL (74-106)
== END 2024-08-17 22:32 | disposition home or self-care (01) ==
PROVIDERS: Emergency Provider Emergency Medicine; PCP Family Medicine; Visit Provider Emergency Medicine
DX: E11.65 Type 2 diabetes mellitus with hyperglycemia (principal); Z79.84 Long term (current) use of oral hypoglycemic drugs
CPT/HCPCS: 80053; 81001; 82009; 82962; 85025; 96360; 96361; 99284; A4216

== ENCOUNTER 2024-11-25 17:39 | Inpatient (IN) | payer BC, MEDICAID, SELFPAY ==
[2024-11-25 17:40] VITALS: PULSE 89; RESP 18; TEMP 36.9; O2SAT 98; BMI 61.0
[2024-11-25 17:42] VITALS: BP 139/74; PULSE 89; RESP 18; TEMP 36.9; O2SAT 98
--- NOTE | 2024-11-25 18:35 | CT_ITS ---
PROCEDURE: ABDOMEN/PELVIS W IV CONT ONLY 11/25/2024 REASON FOR EXAM: ABDOMINAL PAIN, RECENT YONATHAN-EN-Y TECHNIQUE: Abdomen and pelvis CT with intravenous contrast. Coronal and Sagittal reconstruction series were provided One or more dose reduction techniques were used (e.g., Automated exposure control, adjustment of the mA and/or kV according to patient size, use of iterative reconstruction technique. COMPARISON: None FINDINGS: Elevated right hemidiaphragm with adjacent basilar atelectasis. Liver, spleen, pancreas and adrenal glands are intact. Gallbladder is satisfactory. No significant biliary ductal dilation. Status post gastric bypass. Tiny fluid collection along the inferior margin of the gastrojejunal anastomosis (coronal images 63-73) measuring 2.5 x 2.6 x 1.1 cm. Kidneys enhance symmetrically. No suspicious renal mass, calculi or hydronephrosis. Urinary bladder is intact. Distal colonic diverticulosis. No bowel obstruction, focal bowel wall thickening or significant perienteric inflammation. No pelvic free fluid. No free air. No abdominal aortic aneurysm or suspicious adenopathy. Superficial soft tissues are without acute abnormality. No acute osseous abnormality. CT/Abdomen/Pelvis W IV Cont ONLY IMPRESSION: Status post gastric bypass with tiny nonspecific collection along the inferior margin of the gastrojejunal anastomosis as above. Anastomosis leak, seroma, infection and scarring are all considered. No obstru ction, free air or free fluid. Reading Location: [facility]
--- NOTE | 2024-11-25 18:40 | EX.ED.GENINJ ---
HPI <Dr. Jonatan Rivera, DO - Last Filed: 11/26/24 12:24> History of Present Illness Chief Complaint: Nausea/Vomiting Narrative Narrative: Chief complaint and HPI: Nausea and vomiting. 39-year-old male with past medical history of morbid obesity status post Rosalie-en-Y on 11/16/2024 at [facility] with Dr. Lal presents for evaluation of nausea and vomiting. Patient states since the procedure he has had nausea and vomiting. He states that he is on a clear liquid diet as well as protein shakes. He states that over the weekend his nausea and vomiting worsened. He also endorses some vague epigastric abdominal pain. He states he called his surgeon who told him to continue small amounts of fluids. Patient states his symptoms have not improved which is why he presents here to the emergency department. He denies any shortness of breath, chest pain, constipation, diarrhea, dysuria. He states he has been taking Zofran with little relief. States that he has been taking minimal p.o. intake secondary to the nausea and vomiting. Review of systems: See HPI Medications: As listed on the chart Allergies: As listed on the chart PFSH: Per chart Vital signs: As listed on the chart. Reviewed. Physical exam: Gen: A&O x3, NAD Head: Normocephalic, atraumatic Eyes: No sclera icterus, conjunctiva clear ENT: Mildly dry mucous membranes Neck: Trachea midline, No JVD CV: RRR, no murmurs, no peripheral edema Resp: Lungs CTA BL, no w/r/c GI: Obese, abd soft, non-distended, non-tender, no r/r/g, multiple laparoscopic surgical incisions healing well without obvious signs of infection : No CVA tenderness Musc: Full ROM, no deformity Skin: Warm, dry Neuro: Alert, oriented, grossly intact, sensation intact Psych: Cooperative, appropriate mood and affect PFSH <Dr. Jonatan Rivera, DO - Last Filed: 11/26/24 12:24> [facility] Medical History Pre-diabetes Morbid obesity Tobacco abuse Newly diagnosed diabetes Home Medications ?Medication ?Instructions ?Recorded ?Last Taken ?Type sildenafil 100 mg tablet (Viagra) 100 mg PO DAILY PRN 11/29/22 Unknown History enoxaparin 60 mg/0.6 mL 60 mg subcut Q12H 11/26/24 Unknown History subcutaneous syringe lisinopril 5 mg tablet 5 mg PO DAILY 11/26/24 Unknown History methocarbamol 750 mg tablet 750 mg PO TID 11/26/24 Unknown History omeprazole 40 mg capsule,delayed 40 mg PO DAILY 11/26/24 Unknown History release ondansetron 4 mg disintegrating 4 mg PO Q8H PRN 11/26/24 Unknown History tablet ursodiol 300 mg capsule 300 mg PO BID 11/26/24 Unknown History Allergy/AdvReac Type Severity Reaction Status Date / Time No Known Allergies Allergy Verified 11/25/24 17:39 Social History Smoking Status: Never smoker EXAM <Dr. Jonatan Rivera, DO - Last Filed: 11/26/24 12:24> Physical Exam Const Vital Signs: 11/25/24 17:40 11/25/24 17:42 11/25/24 17:42 Temperature 98.5 F 98.5 F Temperature Source Oral Oral Pulse Rate 89 89 Respiratory Rate 18 18 Blood Pressure 139/74 H 139/74 H Blood Pressure Mean 95 95 Pulse Ox 98 98 Oxygen Delivery Method Room Air Room Air 11/25/24 19:00 11/25/24 20:00 11/25/24 21:00 Temperature 98.2 F 99.1 F Temperature Source Oral Oral Pulse Rate 68 69 74 Respiratory Rate 20 H 17 14 Blood Pressure 132/62 H 124/78 H 122/79 H Blood Pressure Mean 85 93 93 Pulse Ox 97 97 97 Oxygen Delivery Method Room Air Room Air Room Air 11/26/24 01:00 11/26/24 03:00 11/26/24 05:00 Temperature Temperature Source Pulse Rate 70 75 75 Respiratory Rate 18 16 16 Blood Pressure 160/71 H 117/67 140/72 H Blood Pressure Mean 100 83 94 Pulse Ox 95 99 98 Oxygen Delivery Method Room Air Room Air Room Air 11/26/24 07:00 11/26/24 07:00 Temperature 98.1 F Temperature Source Pulse Rate 70 72 Respiratory Rate 18 18 Blood Pressure 165/62 H 165/62 H Blood Pressure Mean 96 96 Pulse Ox 92 92 Oxygen Delivery Method Room Air <Dr. Parker Damon, DO - Last Filed: 11/26/24 07:21> Physical Exam Const Vital Signs: 11/25/24 17:40 11/25/24 17:42 11/25/24 17:42 Temperature 98.5 F 98.5 F Temperature Source Oral Oral Pulse Rate 89 89 Respiratory Rate 18 18 Blood Pressure 139/74 H 139/74 H Blood Pressure Mean 95 95 Pulse Ox 98 98 Oxygen Delivery Method Room Air Room Air 11/25/24 19:00 11/25/24 20:00 11/25/24 21:00 Temperature 98.2 F 99.1 F Temperature Source Oral Oral Pulse Rate 68 69 74 Respiratory Rate 20 H 17 14 Blood Pressure 132/62 H 124/78 H 122/79 H Blood Pressure Mean 85 93 93 Pulse Ox 97 97 97 Oxygen Delivery Method Room Air Room Air Room Air 11/26/24 01:00 11/26/24 03:00 11/26/24 05:00 Temperature Temperature Source Pulse Rate 70 75 75 Respiratory Rate 18 16 16 Blood Pressure 160/71 H 117/67 140/72 H Blood Pressure Mean 100 83 94 Pulse Ox 95 99 98 Oxygen Delivery Method Room Air Room Air Room Air 11/26/24 07:00 11/26/24 07:00 Temperature 98.1 F Temperature Source Pulse Rate 70 72 Respiratory Rate 18 18 Blood Pressure 165/62 H 165/62 H Blood Pressure Mean 96 96 Pulse Ox 92 92 Oxygen Delivery Method Room Air [facility] <Dr. Jonatan Rivera, DO - Last Filed: 11/26/24 12:24> [facility] Narrative Medical decision making narrative: 39-year-old male with past medical history of morbid obesity status post Rosalie-en-Y on 11/16/2024 at [facility] with Dr. Lal presents for evaluation of nausea and vomiting. Patient states since the procedure he has had nausea and vomiting however worsening leading to decreased p.o. intake. Has some vague epigastric abdominal pain. Differential diagnosis includes but is not limited to side effect from Rosalie-en-Y, electrolyte abnormality, dehydration, PANDA, intra-abdominal process such as abscess, UTI. NS bolus and Reglan ordered for symptoms. Abdominal pain workup ordered including CT abdomen pelvis. CBC with mild leukocytosis of 12.4. No anemia. CMP relatively unremarkable. No PANDA. No significant electrolyte abnormality. Magnesium unremarkable. Lactic acid unremarkable lipase unremarkable. CT abdomen pelvis shows status post gastric bypass with tiny nonspecific collection along the inferior margin of the gastrojejunal anastomosis. Anastomosis leak, seroma, infection, and scarring are all considered. Given this finding, patient's surgeon, Dr. Lal at [facility] was contacted and patient was discussed. I originally spoke to the general surgeon on-call who does not do bariatric surgery so he had Dr. Lal personally call me. She recommends transfer and admission to her hospital. Recommended another LR bolus with LR maintenance fluids. Recommended thiamine be ordered. Patient is to remain NPO. Okay with holding off on antibiotics at this time. All recommendations were ordered. Patient was updated of all the results and the findings. He confirmed understanding. Patient will be transferred. UA negative for UTI but positive for ketones. Patient receiving fluids. Transfer line was contacted for [facility] for admission under Dr. Lal. Awaiting response back. Patient was signed out to night physician. Impression: 1. Nausea and vomiting 2. Dehydration 3. Status post gastric bypass surgery with tiny nonspecific collection along the inferior margin of the gastrojejunal anastomosis Update: 0720 hrs. on 26 November 2024: Patient was checked out to me pending transfer to [facility]. It has been about 9 hours at the since the patient has been accepted and we are being told that he may not get a bed today. Patient has had an uneventful night. He received a couple doses of pain medication. I repeated morning labs which appear stable with resolution of his leukocytosis. I will speak with the hospitalist regarding admission Lab Data Labs: Laboratory Results - last 24 hr 11/25/24 11/25/24 11/26/24 18:35 18:57 06:23 WBC 12.2 H 10.4 RBC 4.63 4.49 L Hgb 13.4 13.1 Hct 40.9 39.7 L MCV 88.3 88.4 MCH 28.9 29.2 MCHC 32.8 33.0 RDW Std Deviation 43.8 43.8 RDW Coeff of David 13.6 13.6 Plt Count 313 262 MPV 11.0 11.8 Immature Gran % (Auto) 0.700 0.700 Neut % (Auto) 73.0 H 70.9 H Lymph % (Auto) 18.9 L 19.4 [place] % (Auto) 5.9 7.3 Eos % (Auto) 1.2 1.4 Baso % (Auto) 0.3 0.3 Absolute Neuts (auto) 8.9 H 7.4 Absolute Lymphs (auto) 2.30 2.02 Nucleated RBC % 0 0 Sodium 137 138 Potassium 3.5 3.5 Chloride 102 104 Carbon Dioxide 20.1 L 20.0 L Anion Gap 15 14 BUN 13 12 Creatinine 0.76 0.71 Estim Creat Clear Calc 231.95 248.29 Est GFR (MDRD) Non-Af 116 118 BUN/Creatinine Ratio 17.5 16.7 Glucose 103 H 121 H Lactic Acid < 1.0 Calcium 9.1 8.8 Magnesium 2.0 1.9 Total Bilirubin 0.38 0.27 Direct Bilirubin 0.15 AST 21 15 ALT 42 32 Alkaline Phosphatase 64 58 Total Protein 7.3 6.6 Albumin 4.1 3.8 Globulin 3.3 2.8 Albumin/Globulin Ratio 1.2 Lipase 39 54 Urine Color Straw Urine Clarity Clear Urine pH 6.0 Ur Specific [place] 1.015 Urine Protein TNP Urine Glucose (UA) Normal Urine Ketones 150 A* Urine Occult Blood Negative Urine Nitrite Negative Urine Bilirubin 1 H Urine Urobilinogen 1 H Ur Leukocyte Esterase Negative Urine RBC 0-5 SEEN Urine WBC 0-5 SEEN Ur Squamous Epith Cells 0-5 SEEN Urine Bacteria 0 SEEN Urine Mucus 1+ U Random Total Protein 48.2 H Radiography Diagnostic Testing: Clinical Impression(s) from Imaging Studies Abdomen/Pelvis CT 11/25/24 18:35 IMPRESSION: Status post gastric bypass with tiny nonspecific collection along the inferior margin of the gastrojejunal anastomosis as above. Anastomosis leak, seroma, infection and scarring are all considered. No obstruction, free air or free fluid. Reading Location: [facility] <Dr. Parker Damon, DO - Last Filed: 11/26/24 07:21> [facility] MDM Narrative Medical decision making narrative: 39-year-old male with past medical history of morbid obesity status post Rosalie-en-Y on 11/16/2024 at [facility] with Dr. Lal presents for evaluation of nausea and vomiting. Patient states since the procedure he has had nausea and vomiting however worsening leading to decreased p.o. intake. Has some vague epigastric abdominal pain. Differential diagnosis includes but is not limited to side effect from Rosalie-en-Y, electrolyte abnormality, dehydration, PANDA, intra-abdominal process such as abscess, UTI. NS bolus and Reglan ordered for symptoms. Abdominal pain workup ordered including CT abdomen pelvis. CBC with mild leukocytosis of 12.4. No anemia. CMP relatively unremarkable. No PANDA. No significant electrolyte abnormality. Magnesium unremarkable. Lactic acid unremarkable lipase unremarkable. CT abdomen pelvis shows status post gastric bypass with tiny nonspecific collection along the inferior margin of the gastrojejunal anastomosis. Anastomosis leak, seroma, infection, and scarring are all considered. Given this finding, patient's surgeon, Dr. Lal at [facility] was contacted and patient was discussed. She recommends transfer and admission to her hospital. Recommended another LR bolus with LR maintenance fluids. Recommended thiamine be ordered. Patient is to remain NPO. Okay with holding off on antibiotics at this time. Patient was updated of all the results and the findings. He confirmed understanding. Patient will be transferred. Urine pending at this time. Update: 0720 hrs. on 26 November 2024: Patient was checked out to me pending transfer to [facility]. It has been about 9 hours at the since the patient has been accepted and we are being told that he may not get a bed today. Patient has had an uneventful night. He received a couple doses of pain medication. I repeated morning labs which appear stable with resolution of his leukocytosis. I will speak with the hospitalist regarding admission History & Record Review Discussion w/independent historian: Patient Additional record(s) reviewed:: Prior outpatient record and Prior labs Lab Data Attestation: I reviewed the patient's lab results. Labs: Laboratory Results - last 24 hr 11/25/24 11/25/24 11/26/24 18:35 18:57 06:23 WBC 12.2 H 10.4 RBC 4.63 4.49 L Hgb 13.4 13.1 Hct 40.9 39.7 L MCV 88.3 88.4 MCH 28.9 29.2 MCHC 32.8 33.0 RDW Std Deviation 43.8 43.8 RDW Coeff of David 13.6 13.6 Plt Count 313 262 MPV 11.0 11.8 Immature Gran % (Auto) 0.700 0.700 Neut % (Auto) 73.0 H 70.9 H Lymph % (Auto) 18.9 L 19.4 [place] % (Auto) 5.9 7.3 Eos % (Auto) 1.2 1.4 Baso % (Auto) 0.3 0.3 Absolute Neuts (auto) 8.9 H 7.4 Absolute Lymphs (auto) 2.30 2.02 Nucleated RBC % 0 0 Sodium 137 138 Potassium 3.5 3.5 Chloride 102 104 Carbon Dioxide 20.1 L 20.0 L Anion Gap 15 14 BUN 13 12 Creatinine 0.76 0.71 Estim Creat Clear Calc 231.95 248.29 Est GFR (MDRD) Non-Af 116 118 BUN/Creatinine Ratio 17.5 16.7 Glucose 103 H 121 H Lactic Acid < 1.0 Calcium 9.1 8.8 Magnesium 2.0 1.9 Total Bilirubin 0.38 0.27 Direct Bilirubin 0.15 AST 21 15 ALT 42 32 Alkaline Phosphatase 64 58 Total Protein 7.3 6.6 Albumin 4.1 3.8 Globulin 3.3 2.8 Albumin/Globulin Ratio 1.2 Lipase 39 54 Urine Color Straw Urine Clarity Clear Urine pH 6.0 Ur Specific [place] 1.015 Urine Protein TNP Urine Glucose (UA) Normal Urine Ketones 150 A* Urine Occult Blood Negative Urine Nitrite Negative Urine Bilirubin 1 H Urine Urobilinogen 1 H Ur Leukocyte Esterase Negative Urine RBC 0-5 SEEN Urine WBC 0-5 SEEN Ur Squamous Epith Cells 0-5 SEEN Urine Bacteria 0 SEEN Urine Mucus 1+ U Random Total Protein 48.2 H Radiography Diagnostic Testing: Clinical Impression(s) from Imaging Studies Abdomen/Pelvis CT 11/25/24 18:35 IMPRESSION: Status post gastric bypass with tiny nonspecific collection along the inferior margin of the gastrojejunal anastomosis as above. Anastomosis leak, seroma, infection and scarring are all considered. No obstruction, free air or free fluid. Reading Location: [facility] Management Discussion w/another healthcare provider: Hospitalist and Data Warehousing Specialist Discharge Plan Disposition Disposition: Acute Care Hospital [facility] Discharge Date/Time: 11/26/24 08:03
[2024-11-25 19:00] VITALS: BP 132/62; PULSE 68; RESP 20; TEMP 36.8; O2SAT 97
[2024-11-25] MEDS: 0.9% Normal Saline (1000mL) 1,000 ML 999 ML IV (19:00)
[2024-11-25] MEDS: Metoclopramide 10 MG/2 ML Vial IV (19:08)
[2024-11-25 19:22] LABS: Absolute Neutrophil Count 8.9 X10^3/uL (2.0-7.7); Basophil# 0.04 X10^3/uL; Basophil% 0.3 % (0-1); Eosinophil# 0.14 X10^3/uL; Eosinophils% 1.2 % (0-5); Hematocrit 40.9 % (40-54); Hemoglobin 13.4 g/dL (13.0-16.5); Lymphocyte % 18.9 % (19-41); Mean Corp Hgb Conc 32.8 g/dL (32-36); Mean Corpuscular Hgb 28.9 pg (27.0-32.0); Mean Corpuscular Volume 88.3 fL (80-94); Monocyte# 0.72 X10^3/uL; Monocyte% 5.9 % (0-10); NRBC Flagged by Analyzer 0 % (0-5); Neutrophil # 8.88 X10^3/uL (2.7-7.7); Platelet Count 313 K/mm3 (150-450); RBC Distribution Width CV 13.6 % (11.6-14.6); RBC Distribution Width SD 43.8 fl (35.1-43.9); Red Blood Count 4.63 M/mm3 (4.6-6.2); White Blood Count 12.2 K/mm3 (4.4-11.0)
[2024-11-25 19:47] LABS: ALB/GLOB Ratio 1.2 RATIO (0.9-2.4); AST(SGOT) 21 U/L (<=37); Alanine Aminotransfer ALT/SGPT 42 U/L (<=46); Albumin, Serum 4.1 g/dL (3.5-5.0); Alkaline Phosphatase 64 U/L (40-129); Anion Gap 15 (5-15); BUN 13 mg/dL (4-19); BUN/Creat Ratio 17.5 RATIO (10-20); Calcium,Total 9.1 mg/dL (7.6-11.0); Carbon Dioxide 20.1 mmol/L (21.0-32.0); Chloride 102 mmol/L (98-108); Creatinine, Serum 0.76 mg/dL (0.70-1.20); EST Glomerular Filtration Rate 116 (>60); Estimated Creatinine Clearance 231.95 ml/min (50-250); Globulin 3.3 g/dL (2.2-4.2); Glucose 103 mg/dL (70-99); Lipase 39 U/L (13-75); Potassium 3.5 mmol/L (3.3-5.1); Protein, Total 7.3 g/dL (5.9-8.4); Sodium Level 137 mmol/L (133-145); Total Bilirubin 0.38 mg/dL (0.00-1.30)
[2024-11-25 19:50] LABS: Lactic Acid < 1.0 mmol/L (0.0-2.0)
[2024-11-25 20:00] VITALS: BP 124/78; PULSE 69; RESP 17; TEMP 37.3; O2SAT 97
[2024-11-25 21:00] VITALS: BP 122/79; PULSE 74; RESP 14; O2SAT 97
[2024-11-25 21:18] LABS: Bacteria 0 SEEN /hpf (None Seen)
[2024-11-25 21:23] LABS: Color, Urine Straw (Yellow); Glucose, Dipstick Normal (Normal); Leukocyte Esterase-Dipstick Negative /ul (Negative); Nitrite-Dipstick Negative (Negative); Occult Blood-Urine Negative /ul (Negative); Specific Gravity, Urine 1.015 (1.002-1.030); Urine Clarity Clear (Clear); Urine Urobilinogen 1 mg/dl (Normal)
[2024-11-25] MEDS: Thiamine Hydrochloride 100 MG in 0.9% Normal Saline (50mL Bag) 50 ML 200 MG IV (21:26)
[2024-11-25] MEDS: Lactated Ringers 1,000 ML 999 ML IV (21:26)
[2024-11-25 21:28] LABS: Ketone-Dipstick 150 mg/dl (Negative); Urine Bilirubin Dipstick 1 mg/dL (Negative)
[2024-11-25 21:40] LABS: Protein, Urine (Random) 48.2 mg/dL (0.0-12.0)
[2024-11-25 21:44] LABS: Mucous, Urine 1+ /hpf (<or=2+); Red Blood Cells-Urine 0-5 SEEN /hpf (0-5); Squamous Epithelial Cells - UA 0-5 SEEN /hpf (0-5); White Blood Cells 0-5 SEEN /hpf (0-5)
[2024-11-26 01:00] VITALS: BP 160/71; PULSE 70; RESP 18; O2SAT 95
[2024-11-26] MEDS: Morphine 4 MG/ML Syringe IV ×2 (01:06→06:12)
--- NOTE | 2024-11-26 01:07 | ED.RN ---
See downtime charting
[2024-11-26] MEDS: Ondansetron 4 MG/2 ML Vial IV ×3 (01:15→21:19)
[2024-11-26 03:00] VITALS: BP 117/67; PULSE 75; RESP 16; O2SAT 99
[2024-11-26 05:00] VITALS: BP 140/72; PULSE 75; RESP 16; O2SAT 98
[2024-11-26] MEDS: Lactated Ringers 1,000 ML 125 ML IV ×2 (06:38)
[2024-11-26 07:00] VITALS: BP 165/62; PULSE 70; PULSE 72; RESP 18; TEMP 36.7; O2SAT 92
[2024-11-26 07:03] LABS: Absolute Lymphocyte Count 2.02 X10^3/uL (0.83-4.51); Absolute Neutrophil Count 7.4 X10^3/uL (2.0-7.7); Basophil# 0.03 X10^3/uL; Basophil% 0.3 % (0-1); Eosinophil# 0.15 X10^3/uL; Eosinophils% 1.4 % (0-5); Hematocrit 39.7 % (40-54); Hemoglobin 13.1 g/dL (13.0-16.5); Lymphocyte # 2.02 X10^3/ul (0.83-4.51); Lymphocyte % 19.4 % (19-41); Mean Corpuscular Hgb 29.2 pg (27.0-32.0); Mean Corpuscular Volume 88.4 fL (80-94); Mean Platelet Vol. 11.8 fl (6.2-12.0); Monocyte# 0.76 X10^3/uL; Monocyte% 7.3 % (0-10); NRBC Flagged by Analyzer 0 % (0-5); Neutrophil # 7.39 X10^3/uL (2.7-7.7); Neutrophil % 70.9 % (47-70); Platelet Count 262 K/mm3 (150-450); RBC Distribution Width CV 13.6 % (11.6-14.6); RBC Distribution Width SD 43.8 fl (35.1-43.9); Red Blood Count 4.49 M/mm3 (4.6-6.2); White Blood Count 10.4 K/mm3 (4.4-11.0)
[2024-11-26 07:16] LABS: AST(SGOT) 15 U/L (<=37); Alanine Aminotransfer ALT/SGPT 32 U/L (<=46); Albumin, Serum 3.8 g/dL (3.5-5.0); Alkaline Phosphatase 58 U/L (40-129); Anion Gap 14 (5-15); BUN 12 mg/dL (4-19); BUN/Creat Ratio 16.7 RATIO (10-20); Bilirubin, Direct 0.15 mg/dL (0.00-0.30); Calcium,Total 8.8 mg/dL (7.6-11.0); Chloride 104 mmol/L (98-108); Creatinine, Serum 0.71 mg/dL (0.70-1.20); EST Glomerular Filtration Rate 118 (>60); Estimated Creatinine Clearance 248.29 ml/min (50-250); Globulin 2.8 g/dL (2.2-4.2); Glucose 121 mg/dL (70-99); Lipase 54 U/L (13-75); Potassium 3.5 mmol/L (3.3-5.1); Protein, Total 6.6 g/dL (5.9-8.4); Sodium Level 138 mmol/L (133-145); Total Bilirubin 0.27 mg/dL (0.00-1.30)
--- NOTE | 2024-11-26 07:24 | HP.PCM.HOS_ITS ---
HPI - General General Date of Admission: 11/26/24 Date of Service: 11/26/24 Chief Complaint: Nausea and vomit for last 4 days. Had gastric bypass surgery on 11/16 HPI Narrative AMIRA CAREY, is a 39 M came to ED for persistent nausea vomiting mainly driving since past Saturday, 11/22. Patient also has intermittent cramps which at times severe 8/10 in intensity, nonspecific but mainly around central part of abdomen. He had gastric Rosalie-en-Y bypass surgery on 11/16 in [facility]. After that was discharged on 11/18. He said he was on clear liquid 4 weeks prior to surgery and then started on clear liquid after surgery soon. He did not feel good like bloating on Saturday, 11/20, okay on next day but restarted very nauseous and symptomatic on 11/22. d fever 101 Fahrenheit on past Saturday In ED, CT abdomen without contrast was done which shows a small anastomotic leak. Patient is accepted in [facility] [place] but they do not have bed therefore getting admitted in the interim period. [facility] Medical History Pre-diabetes Morbid obesity Tobacco abuse Newly diagnosed diabetes Home Medications ?Medication ?Instructions ?Recorded ?Last Taken ?Type sildenafil 100 mg tablet (Viagra) 100 mg PO DAILY PRN 11/29/22 Unknown History enoxaparin 60 mg/0.6 mL 60 mg subcut Q12H 11/26/24 U nknown History subcutaneous syringe lisinopril 5 mg tablet 5 mg PO DAILY 11/26/24 Unkno wn History methocarbamol 750 mg tablet 750 mg PO TID 11/26/24 Unk nown History omeprazole 40 mg capsule,delayed 40 mg PO DAILY Unknown History release ondansetron 4 mg disintegrating 4 mg PO Q8H PRN Unknown History tablet ursodiol 300 mg capsule 300 mg PO BID 11/26/24 Unkno wn History Allergy/AdvReac Type Severity Reaction Status Date / Time No Known Allergies Allergy Verified 11/25/24 17:39 Social History Smoking Status: Never smoker ROS ROS Narrative Constitutional: Reports fatigue and weakness. Had fever 101 Fahrenheit on past Saturday HEENT: Reports systems reviewed and no addt'l complaints, except as documented Respiratory/Chest: Chronic sleep apnea, uses CPAP no acute shortness of breath or respiratory distress or wheezing. CVS: No chest pain. Denies chronic heart disease Gastrointestinal: Denies coffee ground emesis, hematemesis or vomiting Genitourinary: Denies burning urination or new urinary tract symptoms Musculoskeletal: Denies acute joint pain or limited range of motion. No acute injury Neurologic: Denies seizure-like symptoms. skin: Varicose vein. Endocrinology: Reports systems reviewed and no addt'l complaints, except as documented Hematologic/Lymphatic: Reports systems reviewed and no addt'l complaints, except as documented Rest 14 ROS are negative except as mentioned in HPI Vital Signs Vital Signs Vital Signs: 11/25/24 17:40 11/25/24 17:42 11/25/24 17:42 Temperature 98.5 F 98.5 F Temperature Source Oral Oral Pulse Rate 89 89 Respiratory Rate 18 18 Blood Pressure 139/74 H 139/74 H Blood Pressure Mean 95 95 Pulse Ox 98 98 Oxygen Delivery Method Room Air Room Air 11/25/24 19:00 11/25/24 20:00 11/25/24 21:00 Temperature 98.2 F 99.1 F Temperature Source Oral Oral Pulse Rate 68 69 74 Respiratory Rate 20 H 17 14 Blood Pressure 132/62 H 124/78 H 122/79 H Blood Pressure Mean 85 93 93 Pulse Ox 97 97 97 Oxygen Delivery Method Room Air Room Air Room Air 11/26/24 01:00 11/26/24 03:00 11/26/24 05:00 Temperature Temperature Source Pulse Rate 70 75 75 Respiratory Rate 18 16 16 Blood Pressure 160/71 H 117/67 140/72 H Blood Pressure Mean 100 83 94 Pulse Ox 95 99 98 Oxygen Delivery Method Room Air Room Air Room Air 11/26/24 07:00 11/26/24 07:00 Temperature 98.1 F Temperature Source Pulse Rate 70 72 Respiratory Rate 18 18 Blood Pressure 165/62 H 165/62 H Blood Pressure Mean 96 96 Pulse Ox 92 92 Oxygen Delivery Method Room Air Weight Weight: 450 lb Body Mass Index (BMI) 61.0 Physical Exam Narrative General: Alert, Oriented x3, Cooperative HEENT: Atraumatic, PERRLA, EOMI, Normocephalic Oral: No Gingival or Mucosal Lesions/ Ulcerations Neck: Supple, No JVD, Negative Carotid Bruits Chest wall/Lungs: Air entry diminished in bilateral lung bases. No crepitation/rhonchi Cardiovascular: Regular rate, Regular Rhythm, Normal S1, Normal S2, No M/G/R Abdomen: Bowel Sounds Present, Soft, Non Tender, nondistended. No guarding or rigidity. Laparoscopic port site healing. : No dysuria. No renal angle tenderness. No suprapubic tenderness. Extremities: Chronic mild pitting and nonpitting edema, Capillary Refill Less than 3 Seconds Skin: Varicose vein, grayish depigmentation and chronic leg swelling Musculoskeletal: No Tenderness to Palpation of Joints or Extremities Neurological: Cranial nerves II-XII grossly intact, DTR 2+/4. No acute focal neurological deficit. Psych/Mental Status: Flat affect Results Lab / Micro Data 11/26/24 06:23 11/26/24 06:23 Labs: Laboratory Results - last 24 hr 11/25/24 18:35: Urine Color Straw, Urine Clarity Clear, Urine pH 6.0, Ur Specific Valentines 1.015, Urine Protein TNP, Urine Glucose (UA) Normal, Urine Ketones 150 A*, Urine Occult Blood Negative, Urine Nitrite Negative, Urine Bilirubin 1 H, Urine Urobilinogen 1 H, Ur Leukocyte Esterase Negative, Urine RBC 0-5 SEEN, Urine WBC 0-5 SEEN, Ur Squamous Epith Cells 0-5 SEEN, Urine Bacteria 0 SEEN, Urine Mucus 1+, U Random Total Protein 48.2 H 11/25/24 18:57: WBC 12.2 H, RBC 4.63, Hgb 13.4, Hct 40.9, MCV 88.3, MCH 28.9, MCHC 32.8, RDW Std Deviation 43.8, RDW Coeff of David 13.6, Plt Count 313, MPV 11.0, Immature Gran % (Auto) 0.700, Neut % (Auto) 73.0 H, Lymph % (Auto) 18.9 L, [place] % (Auto) 5.9, Eos % (Auto) 1.2, Baso % (Auto) 0.3, Absolute Neuts (auto) 8.9 H, Absolute Lymphs (auto) 2.30, Nucleated RBC % 0, Sodium 137, Potassium 3.5, Chloride 102, Carbon Dioxide 20.1 L, Anion Gap 15, BUN 13, Creatinine 0.76, Estim Creat Clear Calc 231.95, Est GFR (MDRD) Non-Af 116, BUN/Creatinine Ratio 17.5, Glucose 103 H, Lactic Acid < 1.0, Calcium 9.1, Magnesium 2.0, Total Bilirubin 0.38, AST 21, ALT 42, Alkaline Phosphatase 64, Total Protein 7.3, Albumin 4.1, Globulin 3.3, Albumin/Globulin Ratio 1.2, Lipase 39 11/26/24 06:23: WBC 10.4, RBC 4.49 L, Hgb 13.1, Hct 39.7 L, MCV 88.4, MCH 29.2, MCHC 33.0, RDW Std Deviation 43.8, RDW Coeff of David 13.6, Plt Count 262, MPV 11.8, Immature Gran % (Auto) 0.700, Neut % (Auto) 70.9 H, Lymph % (Auto) 19.4, [place] % (Auto) 7.3, Eos % (Auto) 1.4, Baso % (Auto) 0.3, Absolute Neuts (auto) 7.4, Absolute Lymphs (auto) 2.02, Nucleated RBC % 0, Sodium 138, Potassium 3.5, Chloride 104, Carbon Dioxide 20.0 L, Anion Gap 14, BUN 12, Creatinine 0.71, Estim Creat Clear Calc 248.29, Est GFR (MDRD) Non-Af 118, BUN/Creatinine Ratio 16.7, Glucose 121 H, Calcium 8.8, Total Bilirubin 0.27, Direct Bilirubin 0.15, AST 15, ALT 32, Alkaline Phosphatase 58, Total Protein 6.6, Albumin 3.8, Globulin 2.8, Lipase 54 Imaging Radiology Impression Abdomen/Pelvis CT 11/25/24 18:35 IMPRESSION: Status post gastric bypass with tiny nonspecific collection along the inferior margin of the gastrojejunal anastomosis as above. Anastomosis leak, seroma, infection and scarring are all considered. No obstruction, free air or free fluid. Reading Location: [facility] Assessment & Plan Assessment/Plan (1) Anastomotic leak of gastrojejunostomy: PLAN: Plan This is a 39-year-old gentleman being admitted for persistent nausea and vomiting due to anastomotic leak found in the CT abdomen 1. Persistent nausea and vomiting/abdominal cramps due to anastomotic leak of gastrojejunal anastomosis: Patient is being admitted [facility] floor. CT abdomen/pelvis with IV contrast individually reviewed and shows tiny, nonspecific collection anastomotic leak of contrast along the inferior margin of gastrojejunal anastomosis. This reported tiny fluid collection/2.5 x 2.0 x [address] Lal as mentioned in HPI, patient had Rosalie-en-Y gastric bypass on 11/16 at [facility] by Dr. Lal and is being accepted there. NPO. IV fluid D5W, half NaCl. Pain control. Fever monitoring Patient had mild leukocytosis which is normal today. 2. Prediabetes: Glucose 121. Accu-Chek every 6 hourly and cover with Humalog sliding scale. 3. Mild metabolic acidosis with high anion gap: Anion gap is 14, bicarb 20. K3.5, low normal. Sodium normal. Liver chemistry normal liver 4. Elevated BP: Patient denies that he has high blood pressure but here it was 165/62. Hydralazine 5. Morbid obesity with its related complications including obstructive sleep apnea on CPAP, venous hypertension/varicose vein, prediabetes Living will/advanced directive/end of life care: Patient does not have living will or advanced directive. He does not have the year power of claims attorney for health after discussion of benefits/risks procedures involved with full code, DNR CC arrest and DNR CC, the patient opted for full code. Patient does want artificial life support including intubation, tube feed, ventilator and/chest compression, central venous catheter, vasopressor and DC shock if needed Total time spent in [id number] encounter in discussion of advanced directive 17 minutes. Laboratory Results 11/25/24 18:35: Urine Color Straw, Urine Clarity Clear, Urine pH 6.0, Ur Specific Valentines 1.015, Urine Protein TNP, Urine Glucose (UA) Normal, Urine Ketones 150 A*, Urine Occult Blood Negative, Urine Nitrite Negative, Urine Bilirubin 1 H, Urine Urobilinogen 1 H, Ur Leukocyte Esterase Negative, Urine RBC 0-5 SEEN, Urine WBC 0-5 SEEN, Ur Squamous Epith Cells 0-5 SEEN, Urine Bacteria 0 SEEN, Urine Mucus 1+, U Random Total Protein 48.2 H 11/25/24 18:57: WBC 12.2 H, RBC 4.63, Hgb 13.4, Hct 40.9, MCV 88.3, MCH 28.9, MCHC 32.8, RDW Std Deviation 43.8, RDW Coeff of David 13.6, Plt Count 313, MPV 11.0, Immature Gran % (Auto) 0.700, Neut % (Auto) 73.0 H, Lymph % (Auto) 18.9 L, [place] % (Auto) 5.9, Eos % (Auto) 1.2, Baso % (Auto) 0.3, Absolute Neuts (auto) 8.9 H, Absolute Lymphs (auto) 2.30, Nucleated RBC % 0, Sodium 137, Potassium 3.5, Chloride 102, Carbon Dioxide 20.1 L, Anion Gap 15, BUN 13, Creatinine 0.76, Estim Creat Clear Calc 231.95, Est GFR (MDRD) Non-Af 116, BUN/Creatinine Ratio 17.5, Glucose 103 H, Lactic Acid < 1.0, Calcium 9.1, Magnesium 2.0, Total Bilirubin 0.38, AST 21, ALT 42, Alkaline Phosphatase 64, Total Protein 7.3, Albumin 4.1, Globulin 3.3, Albumin/Globulin Ratio 1.2, Lipase 39 // 06:23: WBC 10.4, RBC 4.49 L, Hgb 13.1, Hct 39.7 L, MCV 88.4, MCH 29.2, MCHC 33.0, RDW Std Deviation 43.8, RDW Coeff of David 13.6, Plt Count 262, MPV 11.8, Immature Gran % (Auto) 0.700, Neut % (Auto) 70.9 H, Lymph % (Auto) 19.4, [place] % (Auto) 7.3, Eos % (Auto) 1.4, Baso % (Auto) 0.3, Absolute Neuts (auto) 7.4, Absolute Lymphs (auto) 2.02, Nucleated RBC % 0, Sodium 138, Potassium 3.5, Chloride 104, Carbon Dioxide 20.0 L, Anion Gap 14, BUN 12, Creatinine 0.71, Estim Creat Clear Calc 248.29, Est GFR (MDRD) Non-Af 118, BUN/Creatinine Ratio 16.7, Glucose 121 H, Calcium 8.8, Magnesium Pending, Total Bilirubin 0.27, Direct Bilirubin 0.15, AST 15, ALT 32, Alkaline Phosphatase 58, Total Protein 6.6, Albumin 3.8, Globulin 2.8, Lipase 54 Clinical Impression(s) from Imaging Studies Abdomen/Pelvis CT 11/25/24 18:35 IMPRESSION: Status post gastric bypass with tiny nonspecific collection along the inferior margin of the gastrojejunal anastomosis as above. Anastomosis leak, seroma, infection and scarring are all considered. No obstruction, free air or free fluid. Reading Location: [facility] Charges/Coding Visit Charges Inpatient E&M: 98318 Init Hosp L3 Procedures Hospitalists Procedures: 66634 Advncd Care Plan 30 Min
[2024-11-26 08:17] VITALS: BMI 61.0
[2024-11-26 08:59] LABS: Magnesium 1.9 mg/dL (1.5-2.2)
[2024-11-26] MEDS: KCL 20MEQ in D5.45NS 20 MEQ/1,000 ML IV.SOLN. 50 MEQ IV (10:13)
[2024-11-26] MEDS: Enoxaparin 40 MG/0.4 ML Syringe SC ×2 (10:13→21:23)
[2024-11-26] MEDS: Morphine 2 MG/ML Syringe IV ×3 (10:48→21:19)
--- NOTE | 2024-11-26 11:51 | CASEMGMT ---
Insurance review for hospitals In-network with?[employer] insurance if transfer is recommended is as follows: [facility], [facility], [place], [facility], [facility], [facility], , [place], [facility], [facility], and [place]. Rosangela Vigil, Discharge Planning Asst.
[2024-11-26 14:55] VITALS: BP 165/91; PULSE 62; RESP 18; TEMP 36.7; O2SAT 99
[2024-11-27] LABS: Bedside Glucose 124 mg/dL (74-106)
--- NOTE | 2024-11-27 00:02 | NURSING ---
This RN gave report to Erica, at [facility], and notified that the patient was preparing to leave with the transportation team currently.
[2024-11-27 00:05] VITALS: BP 130/71; PULSE 87; RESP 17; TEMP 36.4; O2SAT 96
== END 2024-11-27 00:07 | disposition other institution (70) | DRG 920 ==
LOC: ED 18:51 → PCU 11-26 07:59
PROVIDERS: Emergency Medicine; Admitting Provider Internal Medicine; Emergency Provider Surgery; PCP Family Medicine; Visit Provider Internal Medicine
DX: K91.872 Postprocedural seroma of a digestive system organ or structure following a digestive system procedure (principal); K91.89 Other postprocedural complications and disorders of digestive system; E71.32 Disorders of ketone metabolism; Z68.44 Body mass index [BMI] 60.0-69.9, adult; E11.65 Type 2 diabetes mellitus with hyperglycemia; E66.01 Morbid (severe) obesity due to excess calories; E86.0 Dehydration; Z98.84 Bariatric surgery status; R10.13 Epigastric pain; Z79.899 Other long term (current) drug therapy; Y83.8 Other surgical procedures as the cause of abnormal reaction of the patient, or of later complication, without mention of misadventure at the time of the procedure; Z75.1 Person awaiting admission to adequate facility elsewhere
CPT/HCPCS: 74177; 80048; 80053; 80076; 81001; 82962; 83605; 83690; 83735; 84156; 85025; 99284; Q9967; A4216; J2405